=== PATIENT | male | born 1960 | race Caucasian/White ===

== ENCOUNTER → 2024-10-11 | Outpatient (CLI) | payer BC, SELFPAY ==
[2024-10-11 12:54] LABS: Vitamin D,25 Hydroxy 37.5 ng/mL
[2024-10-11 12:57] LABS: AST(SGOT) 16 U/L (15-37); Alanine Aminotransfer ALT/SGPT 23 U/L (16-61); Albumin, Serum 3.8 g/dL (3.2-5.0); Alkaline Phosphatase 47 U/L (45-117); Anion Gap 8 (5-15); BUN 27 mg/dL (7-18); BUN/Creat Ratio 15.3 RATIO (10-20); Calcium,Total 9.4 mg/dL (8.5-10.1); Chloride 102 mmol/L (98-107); Cholesterol 131 mg/dL (200); Creatinine, Serum 1.77 mg/dL (0.70-1.30); EST Glomerular Filtration Rate 42 mL/min (>60); Est Glom Filt Rate - Afr Amer 50 mL/min (>60); Globulin 3.9 g/dL (2.2-4.2); Glucose 136 mg/dL (74-106); High Density Lipoprotein 69 mg/dL; Potassium 4.8 mmol/L (3.5-5.1); Protein, Total 7.7 g/dL (6.4-8.2); Sodium Level 136 mmol/L (136-145); Triglycerides 90 mg/dL; Very Low Density Lipoprotein 18 mg/dL (5-40)
== END | disposition home or self-care (01) ==
LOC: LAB 11:17
PROVIDERS: PCP Family Medicine; Referring Provider Internal Medicine Endocrinology, Diabetes & Metabolism; Visit Provider Internal Medicine Endocrinology, Diabetes & Metabolism
DX: E10.22 Type 1 diabetes mellitus with diabetic chronic kidney disease (principal); E10.65 Type 1 diabetes mellitus with hyperglycemia; N18.31 Chronic kidney disease, stage 3a; E03.9 Hypothyroidism, unspecified; I12.9 Hypertensive chronic kidney disease with stage 1 through stage 4 chronic kidney disease, or unspecified chronic kidney disease; E78.00 Pure hypercholesterolemia, unspecified; E55.9 Vitamin D deficiency, unspecified
CPT/HCPCS: 36415; 80053; 80061; 82306; 84443

== ENCOUNTER → 2025-10-05 | Outpatient (CLI) | payer BC, SELFPAY ==
[2025-10-05 11:10] LABS: Creatinine, Urine (random) 37.50 mg/dL (39.00-259.00); Microalbumin,Random Urine 40.9 mg/L (<20 mg/L)
[2025-10-05 11:33] LABS: AST(SGOT) 21 U/L (<=37); Alanine Aminotransfer ALT/SGPT 17 U/L (<=46); Albumin, Serum 4.4 g/dL (3.4-4.8); Alkaline Phosphatase 43 U/L (40-129); Anion Gap 12 (5-15); BUN 40 mg/dL (4-19); BUN/Creat Ratio 25.0 RATIO (10-20); Calcium,Total 9.5 mg/dL (7.6-11.0); Carbon Dioxide 23.0 mmol/L (21.0-32.0); Chloride 102 mmol/L (98-108); Cholesterol 153 mg/dL (<=200); Globulin 2.7 g/dL (2.2-4.2); Glucose 135 mg/dL (70-99); Low Density Lipoprotein Calc. 56 mg/dL; Potassium 4.8 mmol/L (3.3-5.1); Triglycerides 88 mg/dL; Very Low Density Lipoprotein 18 mg/dL (5-40); cholesterol:hdl ratio screen 1.90
--- OUTSIDE RECORDS SUMMARY | 2025-10-05 12:22 | XMS RPT_ITS | CCD ---
Author Organization [facility] Care Team Providers Care 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 Name Role Phone No, Physician Primary Care Provider UnavailDARIEL Forrest Attending Unavaila ISAAK Camilo Referring Unavailable NO, PHYSICIAN Primary Care Unavailable Angelia, Physician Primary Care Provider Zee Phelan MD, Juan Primary Care Provider [phone] Jann Guadalupe MD Primary Care Provider Jann Guadalupe MD Primary Care Provider Jann Guadalupe Unavailable Lorenzo Walsh Unavailable Unavailable Dr. Jose Guadalupe MD Primary Care Provider Dr. Jose Guadalupe MD Referring Provider Dr. Chao Phelan MD Attending Provider Chao Phelan Attending Unavailable Jose Guadalupe Primary Care Unavailable Jose Guadalupe Referring Unavailable Jose Guadalupe Primary Care Unavailable Jose Guadalupe Referring Unavailable Chao Phelan Attending Unavailable Chao Phelan Attending Unavailable Chao Phelan Referring Unavailable Jose Guadalupe Primary Care Unavailable Podlogar HYDROGEOLOGY PROFESSOR.Aleah HENRY Unavailable Collins MOE, Jann Lackey Primary Care Provi marques JANN GUADALUPE Primary Care Unava ilable DEEPTHI CHAVEZ Attending Unavailable Allergies Allergy Classification Reported Allergen(s) Allergy Type Date of Onset Reaction(s) Facility (20 sources) Cat Dander Propensity to adverse reactions to drug 09-18-20 22 Other: See Comments [facility] (20 sources) Iodinated Contrast Media; Translations: [IODINATED CONTRAST MEDIA] Drug Allergy 09-18-20 22 Itching [facility] (1 source) Contrast media Itching [facility] (1 source) Triiodobenzoic Acids Propensity to adverse reactions 04-11-20 Itching [facility] (1 source) Iodinated Contrast Media Drug allergy (disorder) 04-11-20 [facility] Repository Medications Current Medications Medication Drug Class(es) Dates Sig (Normalized) Sig (Original) [id number] 200 actuat albuterol 0.09 mg/actuat metered dose inhaler (1 source) beta2-Adrenergic Agonist Start: 08-17-2025 take 1-2 puff(s) by inhalation every four hours in the evening for wheezing albuterol 90 mcg/actuation inhaler Indications: Acute bronchitis, unspecified organism Inhale 1-2 puffs every 4 hours if needed for wheezing or shortness of breath. 8.5 g 08/17/2025 3:21 PM EDT 08/17/2025 Active amLODIPine 10 mg oral tablet (20 sources) Dihydropyridine Calcium Channel [place] Start: 06-25-2025 take 1 tablet by mouth in the morning amLODIPine (Norvasc) 10 mg tablet Take 1 tablet (10 mg) by mouth early in the morning.. 06/25/2025 Active Start: 12-22-2022 End: 03-27-2025 take 1 tablet by mouth once daily Amlodipine 10 mg tablet Active 10 mg PO DAILY March 27, 2025 1:47pm Start: 12-03-2022 End: 12-22-2022 take 1 tablet by mouth once daily amLODIPine (NORVASC) 5 mg tablet Indications: Essential hypertension Take 1 tablet by mouth once daily. 30 tablet 2 12/03/2022 12/22/2022 Discontinued Start: 10-03-2022 End: 12-03-2022 take 1 tablet by mouth once daily amLODIPine (NORVASC) 2.5 mg tablet Indications: Essential hypertension Take 1 tablet by mouth once daily. 90 tablet 1 10/03/2022 12/03/2022 Discontinued amLODIPine Quant ity: 0 Refills: 0 Ordered: 30-Jul-2023 Gabriela Guevara Generic Substitution Allowed amlodipine besyl ate (AMLODIPINE ORAL) Take by mouth . 0 Active Comment on above: Take 1 tablet by once daily. azithromycin 250 mg oral tablet (1 source) Macrolide Antimicrobial Start: azithromycin (Zithromax Z-Lenin) 250 mg tablet Indications: Acute bronchitis, unspecified organism Take 2 tablets by mouth at once on day 1, then 1 tablet once a day on days 2-5. Take with a meal. 6 tablet 08/17/2025 3:21 PM EDT 08/17/2025 Active cholecalciferol 0.025 mg oral capsule (1 source) Vitamin D Start: take 1 capsule by mouth once daily Cholecalciferol (Vitamin D3) 25 mcg (1,000 unit) capsule Active 25 ug PO daily April 11, 2025 12:00am clindamycin 300 mg oral capsule (1 source) Lincosamide Antibacterial Start: End: take 1 capsule by mouth three times daily Cleocin HCl 300 mg oral capsule ; 1 cap(s) orally 3 times a day Quantity: 30 Refills: 0 Ordered: 30-Jul-2023 Lorenzo Walsh Start: 30-Jul-2023 End: 08-Aug-2023 Generic Substitution Allowed Comments: Finish all this medication unless otherwise directed by prescriber.Medication should be taken with plenty of water. Comment on above: Finish all this medi cation unless otherwise directed by prescriber.Medication should be taken with plenty of water. dapagliflozin 10 mg oral tablet (8 sources) Sodium-Glucose Cotransporter 2 Inhibitor Start: take 1 tablet by mouth in the morning Farxiga 10 mg tablet Take 1 tablet (10 mg) by mouth early in the morning.. 06/25/2025 Active Start: 07-17-2023 End: 03-27-2025 take 1 tablet by mouth once daily Dapagliflozin Propanediol (Farxiga) 10 mg tablet Active 10 mg PO DAILY March 27, 2025 1:47pm ezetimibe 10 mg oral tablet (6 sources) Dietary Cholesterol Absorption Inhibitor Start: 04-06-2023 End: 03-27-2025 take 1 tablet by mouth once daily Ezetimibe 10 mg tablet Active 10 mg PO DAILY March 27, 2025 1:47pm flash glucose scanning reader (Arimaz AKIRA 2 READER) (19 sources) Start: 10-14-2022 flash glucose scanning reader (FREESTYLE AKIRA 2 READER) Use 4 times daily to monitor sugars. 1 Each 10/14/2022 Active Start: 10-14-2022 flash glucose scanning reader (FREESTYLE AKIRA 2 READER) Use 4 times daily to monitor sugars. 1 Each 0 10/14/2022 Active Comment on above: Use 4 times daily to monitor sugars. 3 ml insulin aspart, human 100 unt/ml pen injector (20 sources) Insulin Analog Start: inject 20 [IU] by subcutaneous injection three times daily insulin aspart (NovoLOG) 100 unit/mL (3 mL) pen INJECT 20 UNITS SUBCUTANEOUSLY (UNDER THE SKIN) THREE TIMES DAILY 05/08/2025 Active Start: 08-03-2023 End: 10-11-2024 Insulin Aspart U-100 (Novolo g Flexpen U-100 Insulin) 100 unit/mL (3 mL) insulin pen Active 20 U SC THREE TIMES A DAY 54 October 11, 2024 11:58am Start: 03-23-2023 End: 08-03-2023 Insulin Aspart U-100 (Novolo g U-100 Insulin Aspart) 100 unit/mL solution Discontinued 1 sliding scale dose SC Use as Directed March 23, 2023 12:00am August 03, 2023 8:10am Start: 09-23-2022 End: 03-22-2023 inject 8 [IU] by subcutaneous injection three times daily before mealtime insulin aspart U-100 (NOVOLOG FLEXPEN U-100 INSULIN) 100 unit/mL (3 mL) Indications: 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 Plus sliding scale 15 mL 1 12/22/2022 Active Comment on above: Inject 5 Units subcutaneously three time s daily before meals. Plus sliding scale Inject 5-10 Units pang bcutaneously three times daily before meals. Patient reports 5-10 units per sliding scale 3 x daily Inject 8 Units subcu taneously three times daily before meals. Plus sliding scale 3 ml insulin glargine 100 unt/ml pen injector (20 sources) Insulin Analog Start: 025 inject 18 [IU] by subcutaneous injection once daily, then inject 100 [IU] by subcutaneous injection once Basaglar KwikPen U-100 Insulin 100 unit/mL (3 mL) pen 18 unit (0.18 mL) subcutaneously daily = each pen good for 28 days once opened 06/25/2025 Active Start: 03-23-2023 End: 10-11-2024 Insulin Glargine (Basaglar K wikpen U-100 Insulin) 100 unit/mL (3 mL) insulin pen Active 18 U SC DAILY October 11, 2024 11:57am Start: 12-22-2022 End: 06-20-2023 inject 16 [IU] by subcutaneous injection once daily in the morning, then inject 15-20 [IU] by subcutaneous injection once daily in the morning insulin glargine (BASAGLAR KWIKPEN U-100 INSULIN) 100 unit/mL (3 mL) Indications: 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 At bedtime 30 mL 1 09/23/2022 12/22/2022 Discontinued Start: 09-18-2022 End: 03-17-2023 insulin glargine (BASAGLAR K WIKPEN U-100 INSULIN) 100 unit/mL (3 mL) Inject 22 Units subcutaneously once daily. At bedtime 30 mL 1 09/18/2022 09/23/2022 Discontinued insulin glargine (LANTUS) 100 unit/mL injection Inject under the skin nightly . 0 Active Comment on above: Inject 22 Units subc utaneously once daily. At bedtime Inject 28 Units subc utaneously once daily. At bedtime Inject 16 Units subc utaneously every morning. Patient reports taking 15-20 units every morning due to experiencing low BS Insulin Lispro (1 source) Insulin Analog HumaLOG Quantity : 0 Refills: 0 Ordered: 30-Jul-2023 Gabriela Guevara Generic Substitution Allowed insulin human, isophane 100 unt/ml injectable suspension (2 sources) insulin NPH (HumuLIN,NovoLIN) 100 unit/mL injection Inject under the skin . 0 Active levothyroxine sodium 0.125 mg oral tablet (20 sources) l-Thyroxine Start: 06-14-2025 levothyroxine (Synthroid, Levoxyl) 125 mcg tablet 06/14/2025 Active Start: 03-23-2023 End: 06-17-2023 take 1 capsule by mouth once daily Levothyroxine 125 mcg capsule Discontinued 125 ug PO DAILY March 23, 2023 12:00am June 17, 2023 1:05pm Start: 09-23-2022 End: 12-14-2024 take 1 tablet by mouth once daily Levothyroxine 125 mcg tablet Active 125 ug PO DAILY December 14, 2024 6:22pm Start: 09-18-2022 End: 03-17-2023 take 1 tablet by mouth once daily before breakfast levothyroxine (SYNTHROID) 112 mcg tablet Take 1 tablet by mouth daily before breakfast. 90 tablet 1 09/18/2022 09/23/2022 Discontinued levothyroxine Qu antity: 0 Refills: 0 Ordered: 30-Jul-2023 Gabriela Guevara Generic Substitution Allowed levothyroxine so dium (LEVOTHYROXINE ORAL) Take by mouth . 0 Active Comment on above: Take 1 tablet by yan th daily before breakfast. Take 112 mcg by mout h daily before breakfast. losartan potassium 100 mg oral tablet (20 sources) Angiotensin 2 Receptor Sydney Start: 06-25-2025 take 1 tablet by mouth in the morning losartan (Cozaar) 100 mg tablet Take 1 tablet (100 mg) by mouth early in the morning.. 06/25/2025 Active Start: 09-18-2022 End: 03-27-2025 take 1 tablet by mouth once daily Losartan 100 mg tablet Active 100 mg PO DAILY March 27, 2025 1:47pm losartan Quantit y: 0 Refills: 0 Ordered: 30-Jul-2023 Gabriela Guevara Generic Substitution Allowed Comment on above: Take 1 tablet by yan th once daily. Take 100 mg by mouth once daily. rosuvastatin calcium 10 mg oral tablet (4 sources) HMG-CoA Reductase Inhibitor Start: End: take 1 tablet by mouth once daily at bedtime rosuvastatin (CRESTOR) 10 mg tablet Take 1 tablet by mouth daily at bedtime. 30 tablet 2 03/03/2023 06/01/2023 Active Comment on above: Take 1 tablet by yan th daily at bedtime. Completed/Discontinued Medications Medication Drug Class(es) Dates Sig (Normalized) Sig (Original) atorvastatin 20 mg oral tablet (18 sources) HMG-CoA Reductase Inhibitor Start: 09-23-2022 End: 04-06-2023 take 1 tablet by mouth once daily Atorvastatin (Lipitor) 20 mg tablet Discontinued 20 mg PO DAILY March 23, 2023 12:00am April 06, 2023 11:46am Comment on above: Take 1 tablet by yan th daily at bedtime. For cholesterol. Blood-Glucose Sensor (FREESTYLE AKIRA 3 SENSOR) marleni (13 sources) Start: 12-25-2022 End: 06-23-2023 Blood-Glucose Sensor (FREESTYLE AKIRA 3 SENSOR) marleni 1 Device every 2 weeks. 6 Each 1 12/25/2022 06/23/2023 Start: 12-25-2022 End: 06-23-2023 Blood-Glucose Sensor (FREEST YLE AKIRA 3 SENSOR) marleni 1 Device every 2 weeks. 6 Each 1 12/25/2022 06/23/2023 Active Comment on above: 1 Device every 2 wee padmini. Blood-Glucose Sensor (Freestyle Akira 3 Sensor) device (5 sources) Start: 04-11-2024 End: 10-11-2024 Blood-Glucose Sensor (Freestyle Akira 3 Sensor) device Discontinued 0 .Route April 11, 2024 11:12am October 11, 2024 11:30am As directed Start: 12-29-2023 End: 04-11-2024 Blood-Glucose Sensor (Freest yle Akira 3 Sensor) device Discontinued 0 .Route December 29, 2023 2:52pm April 11, 2024 11:13am As directed Start: 07-17-2023 End: 12-29-2023 Blood-Glucose Sensor (Freest yle Akira 3 Sensor) device Discontinued 0 .Route July 17, 2023 11:29am December 29, 2023 2:52pm As directed Start: 07-17-2023 End: 07-17-2023 Blood-Glucose Sensor (Freest yle Akira 3 Sensor) device Discontinued 0 .Route July 17, 2023 11:27am July 17, 2023 11:29am As directed Start: 05-11-2023 End: 07-17-2023 Blood-Glucose Sensor (Freest yle Akira 3 Sensor) device Discontinued 0 .Route May 11, 2023 12:00am July 17, 2023 11:27am As directed flash glucose sensor (FREEST YLE AKIRA 2 SENSOR) kit (18 sources) Start: 10-14-2022 End: 04-12-2023 flash glucose sensor (FREEST YLE AKIRA 2 SENSOR) kit 1 Each every 2 weeks. 6 Each 1 10/14/2022 04/12/2023 Start: 10-14-2022 End: 04-12-2023 flash glucose sensor (FREEST YLE AKIRA 2 SENSOR) kit 1 Each every 2 weeks. 6 Each 1 10/14/2022 04/12/2023 Active Comment on above: 1 Each every 2 weeks . hydroCHLOROthiazide 25 mg oral tablet (5 sources) Thiazide Diuretic Star t: 02-0 7- End: 01-28 23 take 1 tablet by mouth once daily hydroCHLOROthiazide (HYDRODIURIL, ESIDRIX) 25 mg tablet Take 1 tablet by mouth once daily. 30 tablet 1 01/06/2023 02/09/2023 Discontinued (Changing Therapy/Dosage Form) Comment on above: Take 1 tablet by yan th once daily. insulin glargine,hum.rec.anlog (BASAGLAR KWIKPEN U-100 INSULIN SUBCUTANEOUS) (1 source) End: 08-31 inject 22 [IU] by subcutaneous injection once daily at bedtime insulin glargine,hum.rec.anlog (BASAGLAR KWIKPEN U-100 INSULIN SUBCUTANEOUS) Inject 22 Units subcutaneously once daily. At bedtime 0 09/18/2022 Discontinued Comment on above: Inject 22 Units subc utaneously once daily. At bedtime metoprolol tartrate 25 mg oral tablet (10 sources) beta-Adrenergic Sydney Star t: 03-01 End: 06-30 take 1 tablet by mouth once daily Metoprolol Tartrate 25 mg tablet Discontinued 25 mg PO DAILY March 23, 2023 12:00am July 17, 2023 11:05am Start: 02-09-2023 take 1 tablet by yan th once daily metoprolol succinate ER (TOPROL XL) 25 mg 24 hr tablet Indications: Essential hypertension Take 1 tablet by mouth once daily. 30 tablet 1 02/09/2023 Active Comment on above: Take 1 tablet by yan th once daily. Problems Active Problems Problem Classification Problem Date Documented Date Episodic/Chronic Acute and unspecified renal failure (3 sources) Acute injury of kidney; Translations: [Acute kidney failure, unspecified] Episodic Acute bronchitis (3 sources) Acute bronchitis; Translations: [Acute bronchitis, unspecified] Onset: 08-17-2025 08-17-2025 Episodic Chronic kidney disease (1 source) Chronic kidney disease; Translations: [Chronic kidney disease, unspecified] 07-17-2023 Chronic Chronic kidney disease (1 source) Chronic kidney disease; Translations: [Chronic kidney disease, stage 3a] Onset: 10-11-2024 Diabetes mellitus with complications (20 sources) Polyneuropathy due to type 1 diabetes mellitus; Translations: [Type 1 diabetes mellitus with diabetic polyneuropathy] Onset: 09-18-2022 Chronic Diabetes mellitus without complication (8 sources) Type 1 diabetes mellitus; Translations: [Insulin treated type 2 diabetes mellitus] Onset: 12-12-2019 12-12-2019 Chronic Disorders of lipid metabolism (20 sources) Mixed hyperlipidemia; Translations: [Mixed hyperlipidemia] Onset: 12-22-2022 Chronic Essential hypertension (20 sources) Essential hypertension; Translations: [Essential (primary) hypertension] Onset: 12-12-2019 12-12-2019 Chronic Fluid and electrolyte disorders (4 sources) Hyponatremia; Translations: [Hypo-osmolality and hyponatremia] Episodic Other eye disorders (1 source) Vitreous hemorrhage, right eye; Translations: [Vitreous hemorrhage, right eye (HCC)] Chronic Other screening for suspected conditions (not mental disorders or infectious disease) (1 source) Patient encounter status; Translations: [Encounter for screening for malignant neoplasm of prostate] Episodic Residual codes; unclassified (1 source) Tobacco user; Translations: [Tobacco use] Episodic Substance-related disorders (3 sources) Tobacco dependence syndrome; Translations: [Cigarette nicotine dependence with nicotine-induced disorder] Onset: 12-12-2019 12-12-2019 Chronic Thyroid disorders (20 sources) Acquired hypothyroidism; Translations: [Hypothyroidism] Onset: 12-12-2019 12-12-2019 Chronic Unclassified (1 source) Preprocedural examination done; Translations: [Pre-op evaluation] Unclassified (2 sources) BOIL 07-30-2023 Comment on above: BOIL Past or Other Problems Problem Classification Problem Date Documented Da te Episodic/Chronic Other fractures (20 sources) Fracture of multiple ribs ; Translations: [Multiple fractures of ribs, unspecified side, initial encounter for closed fracture] Onset: 09-18-2022 09-18-2022 Episodic Screening and history of mental health and substance abuse codes (20 sources) Tobacco use and exposure - finding; Translations: [Personal history of nicotine dependence] Onset: 09-18-2022 Episodic Results Test Name Value Interpretation Reference Range Facility Endocrinology Visit Reporton 04-11-2025 Endocrinology Visit Report [facility] [address] [place] [address] [address] [place] [address] OFFICE VISIT Date of Service: 04/11/25 MR#: [id number] Acct: [id number] Name: ANUM NOVOA Rep #: [id number] : 1960 Provider: Jazmine Sosa Age/Sex: 64/M [place] [facility] [place]: Signed Intake Vital Signs 10/11/24 10:21 04/11/25 10:55 Height 6 ft 3 in 6 ft 3 in Weight: 156 lb 2 oz 159 lb 2 oz BMI 19.5 19.8 BP 166/81 H 140/60 H Blood Pressure Location Lt brachial Lt brachial Position Sitting Sitting Pulse 80 76 Pulse Source Monitor Monitor Pulse Oximetry (%) 98 96 Oxygen Delivery Method room air room air Intake Visit Reasons: 6 M FU Chief Complaint: Diabetes Is patient in pain?: No Allergies Iodinated Contrast Media Adverse Reaction (Intermediate, Verified 04/11/25 10:59) Itching Medications ???Medication ???Instructions ???Recorded ???Confirmed ???Type Basaglar KwikPen U-100 Insulin 100 18 unit (0.18 mL) subcut DAILY # 15 10/11/24 04/11/25 Rx unit/mL (3 mL) subcutaneous mL (insulin glargine) insulin aspart U-100 100 unit/mL 20 unit (0.2 mL) subcut TID #54 mL 10/11/24 04/11/25 Rx (3 mL) subcutaneous pen (Novolog FlexPen U-100 Insulin aspart) levothyroxine 125 mcg tablet 125 mcg PO DAILY #90 tabs 12/14/24 04/11/25 Rx Farxiga 10 mg tablet 10 mg PO DAILY #90 tabs 03/27/25 0 04/11/25 Rx (dapagliflozin propanediol) amlodipine 10 mg tablet 10 mg PO DAILY #90 tabs 03/27/25 0 04/11/25 Rx ezetimibe 10 mg tablet 10 mg PO DAILY #90 tabs 03/27/25 0 04/11/25 Rx losartan 100 mg tablet 100 mg PO DAILY #90 tabs 03/27/25 04/11/25 Rx cholecalciferol (vitamin D3) 25 25 mcg PO QDAY 04/11/25 04/11/25 H istory mcg (1,000 unit) capsule PFSH Medical History Type 1 diabetes mellitus with hyperglycemia Hypertension High cholesterol Thyroid disease Family History Mother Diabetes Hypertension Father Cancer HPI HPI Chief Complaint: Diabetes Details: ANUM NOVOA, is a 64 M who presents to the office today for follow up. A1C is 7.6% He is taking basal bolus. 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 He is taking Farxiga for renal protection. He is on ARB. He is on ezetimibe for lipids. He is having some difficulty communicating with his regarding health and they are eating out frequently. His sugars are worse when he eats processed food. ROS Const Constitutional: No fatigue, weight change or change in appetite Eyes Eyes: No change in vision ENT ENT: No dizziness/vertigo or difficulty swallowing Cardio Cardiology: No chest pain at rest, chest pain with exertion, shortness of breath or palpitations Musc Musculoskeletal: No abnormal gait, joint pain, numbness or tingling Neuro Neurology: No abnormal gait, memory loss, numbness or tingling Psych Psychiatric: No change in appetite, No memory loss and No Thoughts of harming yourself/Others Resp Respiratory: No cough, chest congestion or shortness of breath Gastro GI: No abdominal pain, constipation, diarrhea or difficulty swallowing Genitourinary Male: No burning urination Skin Skin: No itchy eyes or wounds Endo Endocrine: No fatigue or weight change Aller/Imm Allergy/Immunologic: No itchy eyes Exam Const General: cooperative, healthy appearing, comfortable, no acute distress, well developed and not cushingoid Nutritional Appearance: well nourished Orientation: alert, awake and oriented x3 [facility] Head: normal to inspection Ears: hearing grossly normal bilaterally Nose: external nose normal Mouth: oral mucosae normal Eyes General: appearance normal, both eyes and all related structures Alignment and Position: alignment normal Periorbital: periorbital findings normal Eyelids: eyelids normal Conjunctivae: conjunctivae normal Neck Neck: normal visual inspection Neck mass: No Chest Chest palpation inspection: normal inspection of the chest Resp Effort Inspection: normal respiratory effort, able to speak in complete sentences, symmetric chest movement, no audible wheezes and no cough Cardio Rate: regular rate Rhythm: regular rhythm Skin General: no rashes or lesions noted Neuro General: patient alert, patient awake and patient oriented x3 Cranial Nerves: CN's II-XI intact bilaterally Cognition: normal cognition Speech: speech normal Gait: normal gait Motor: muscle tone normal throughout Extrem General: no edema Psych Appearance: grossly normal Mental Status: mental status grossly normal Mood: congruent mood Affect: normal affect Speech and Movement: speech and movement normal Attitude: cooperative Thought Process: normal (more content not included)... Normal [facility] Comprehensive Metabolic Prof ilon 10-11-2024 Albumin [Mass/Vol] 3.8 g/dL Normal 3.2-5.0 [facility] Comment on above: Performed By: #### L 500.4100, L506.1000, L500.4050, L501.9520 #### [facility] [address] [place], [address] Albumin/Globulin [Mass ratio] 1.0 {ratio} Normal 0.9-2.4 [facility] Comment on above: Performed By: #### L 500.4100, L506.1000, L500.4050, L501.9520 #### [facility] [address] [place], [address] ALK P 47 U/L Normal 45-117 [facility] Comment on above: Performed By: #### L 500.4100, L506.1000, L500.4050, [id number] #### [facility] [address] [place], [address] ALT [Catalytic activity/Vol] 23 U/L Normal 16-61 [facility] Comment on above: Performed By: #### L 500.4100, L506.1000, L500.4050, [id number] #### [facility] [address] [place], [address] AST [Catalytic activity/Vol] 16 U/L Normal 15-37 [facility] Comment on above: Performed By: #### L 500.4100, L506.1000, L500.4050, [id number] #### [facility] [address] [place], [address] Bilirubin [Mass/Vol] 0.70 mg/dL Normal 0.20-1.00 [facility] Comment on above: Result Comment: For patients on eltrombopag therapy, use of Dimension [place] TBIL is not recommended. Performed By: #### L 500.4100, L506.1000, L500.4050, L501.9520 #### [facility] [address] [place], [address] BUN/CRE 15.3 RATIO Normal 10-20 [facility] Comment on above: Performed By: #### L 500.4100, L506.1000, L500.4050, L501.9520 #### [facility] [address] [place], [address] CA,Total 9.4 mg/dL Normal 8.5-10.1 [facility] Comment on above: Performed By: #### L 500.4100, L506.1000, L500.4050, L501.9520 #### [facility] [address] [place], [address] Chloride [Moles/Vol] 102 mmol/L Normal 98-107 [facility] Comment on above: Performed By: #### L 500.4100, L506.1000, L500.4050, L501.9520 #### [facility] [address] [place], [address] CO2 [Moles/Vol] 25.0 mmol/L Normal 21.0-32.0 [facility] Comment on above: Performed By: #### L 500.4100, L506.1000, L500.4050, L501.9520 #### [facility] [address] [place], [address] Creatinine [Mass/Vol] 1.77 mg/dL High 0.70-1.30 [facility] Comment on above: Result Comment: The validity of the calculated GFR GFRAA in patients over 70 years has not been determined. Clinical correlation is essential. Performed By: #### L 500.4100, L506.1000, L500.4050, L501.9520 #### [facility] [address] [place], [address] EST GFR - AA 50 mL/min Low >60 [facility] Comment on above: Result Comment: Afri can English GFR Calc Performed By: #### L 500.4100, L506.1000, L500.4050, L501.9520 #### [facility] [address] [place], [address] GAP 8 Normal 5-15 [facility] Comment on above: Performed By: #### L 500.4100, L506.1000, L500.4050, L501.9520 #### [facility] [address] [place], [address] GFR/1.73 sq M.predicted among non-blacks MDRD (S/P/Bld) [Vol rate/Area] 42 mL/min/{1.73_m2} Low >60 [facility] Comment on above: Result Comment: Non- GFR Calc Performed By: #### L 500.4100, L506.1000, L500.4050, L501.9520 #### [facility] [address] [place], [address] Globulin (S) [Mass/Vol] 3.9 g/dL Normal 2.2-4.2 [facility] Comment on above: Performed By: #### L 500.4100, L506.1000, L500.4050, L501.9520 #### [facility] [address] [place], [address] Glucose [Mass/Vol] 136 mg/dL High 74-106 [facility] Comment on above: Result Comment: Fast ing Glucose result greater than or equal to 126 mg/dL suggests DIABETES MELLITUS per A.D.A. criteria. Performed By: #### L 500.4100, L506.1000, L500.4050, L501.9520 #### [facility] [address] [place], [address] Potassium [Moles/Vol] 4.8 mmol/L Normal 3.5-5.1 [facility] Comment on above: Performed By: #### L 500.4100, L506.1000, L500.4050, L501.9520 #### [facility] [address] [place], [address] Sodium [Moles/Vol] 136 mmol/L Normal 136-145 [facility] Comment on above: Performed By: #### L 500.4100, L506.1000, L500.4050, L501.9520 #### [facility] [address] [place], [address] T PROT 7.7 g/dL Normal 6.4-8.2 [facility] Comment on above: Performed By: #### L 500.4100, L506.1000, L500.4050, L501.9520 #### [facility] [address] [place], [address] Urea nitrogen [Mass/Vol] 27 mg/dL High 7-18 [facility] Comment on above: Performed By: #### L 500.4100, L506.1000, L500.4050, L501.9520 #### [facility] [address] [place], [address] Endocrinology Visit Reporton 10-11-2024 Endocrinology Visit Report [facility] [address] [place] [address] OFFICE VISIT Date of Service: 10/11/24 MR#: [id number] Acct: [id number] Name: ANUM NOVOA YOLETTE Rep #: [id number] : 1960 Provider: Jazmine Sosa Age/Sex: 64/M Location: [facility] [place] Status: Signed Intake Vital Signs 04/11/24 10:59 10/11/24 10:21 Height 6 ft 3 in 6 ft 3 in Weight: 160 lb 156 lb 2 oz BMI 20.0 19.5 BP 137/74 H 166/81 H Blood Pressure Location Lt brachial Lt brachial Position Sitting Sitting Respiration 16 Pulse 83 80 Pulse Source Monitor Monitor Temp 96.9 F L Temp Source Temporal Pulse Oximetry (%) 96 98 Oxygen Delivery Method room air room air Intake Visit Reasons: 6 M FU Chief Complaint: Diabetes Is patient in pain?: No Allergies Iodinated Contrast Media Adverse Reaction (Intermediate, Verified 04/11/24 10:56) Itching Medications ???Medication ???Instructions ???Recorded ???Confirmed ???Type Farxiga 10 mg tablet 10 mg PO DAILY #90 tabs 09/26/24 10/11/24 Rx (dapagliflozin propanediol) ezetimibe 10 mg tablet 10 mg PO DAILY #90 tabs 09/26/24 10/11/24 Rx losartan 100 mg tablet 100 mg PO DAILY #90 tabs 09/26/24 10/11/24 Rx amlodipine 10 mg tablet 10 mg PO DAILY #90 tabs 09/27/24 10/11/24 Rx Basaglar KwikPen U-100 Insulin 100 18 unit (0.18 mL) subcut DAILY #15 10/11/24 10/11/24 Rx unit/mL (3 mL) subcutaneous mL (insulin glargine) insulin aspart U-100 100 unit/mL 20 unit (0.2 mL) subcut TID #54 mL 10/11/24 10/11/24 Rx (3 mL) subcutaneous pen (Novolog FlexPen U-100 Insulin aspart) levothyroxine 125 mcg tablet 125 mcg PO DAILY #90 tabs 10/11/24 10/11/24 Rx PFSH Medical History High cholesterol Hypertension Thyroid disease Type 1 diabetes mellitus with hyperglycemia Family History Mother Diabetes Hypertension Father Cancer HPI HPI Chief Complaint: Diabetes Details: ANUM NOVOA, is a 64 M who presents to the office today for follow up. A1C is 6.8% He is taking basal bolus. 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 He is taking Farxiga for renal protection. He is on ARB. He is on ezetimibe for lipids. ROS Const Constitutional: No fatigue, weight change or change in appetite Eyes Eyes: No change in vision ENT ENT: No dizziness/vertigo or difficulty swallowing Cardio Cardiology: No chest pain at rest, chest pain with exertion, shortness of breath or palpitations Musc Musculoskeletal: No abnormal gait, joint pain, numbness or tingling Neuro Neurology: No abnormal gait, memory loss, numbness or tingling Psych Psychiatric: No change in appetite, No memory loss and No Thoughts of harming yourself/Others Resp Respiratory: No cough, chest congestion or shortness of breath Gastro GI: No abdominal pain, constipation, diarrhea or difficulty swallowing Genitourinary Male: No burning urination Skin Skin: No itchy eyes or wounds Endo Endocrine: No fatigue or weight change Aller/Imm Allergy/Immunologic: No itchy eyes Exam Const General: cooperative, healthy appearing, comfortable, no acute distress, well developed and not cushingoid Nutritional Appearance: well nourished Orientation: alert, awake and oriented x3 HENMT Head: normal to inspection Ears: hearing grossly normal bilaterally Nose: external nose normal Mouth: oral mucosae normal Eyes General: appearance normal, both eyes and all related structures Alignment and Position: alignment normal Periorbital: periorbital findings normal Eyelids: eyelids normal Conjunctivae: conjunctivae normal Neck Neck: normal visual inspection Neck mass: No Thyroid: thyroid normal Lymphatic: no lymphadenopathy noted Chest Chest palpation inspection: normal inspection of the chest Resp Effort Inspection: normal respiratory effort, able to speak in complete sentences, symmetric chest movement, no audible wheezes and no cough Auscultation: Bilateral: Clear to Auscultation Cardio Rate: regular rate Rhythm: regular rhythm Pulses: posterior tibial pulses present Skin General: no rashes or lesions noted Neuro General: patient alert, patient awake and patient oriented x3 Cranial Nerves: CN's II-XI intact bilaterally Cognition: normal cognition Speech: speech normal Gait: normal gait Motor: muscle tone normal throughout Extrem General: no edema Psych Appearance: grossly normal Mental Status: mental status grossly normal Mood: congruent mood Affect: normal affect Speech and Movement: speech and movement normal Attitude: cooperative Thought Process: normal Thought Content: normal Judgment: judgment good Results POC A1C (more content not included)... Normal [facility] Lipid Profileon 10-11-2024 Cholesterol [Mass/Vol] 131 mg/dL Normal 200 [facility] Comment on above: Result Comment: <200 mg/dL Desirable 200-240 mg/dL Borderline >240 mg/dL High Risk Performed By: #### L 500.4100, L506.1000, L500.4050, L501.9520 #### [facility] [address] [place], [address] Cholesterol in HDL [Mass/Vol] 69 mg/dL Normal [facility] Comment on above: Result Comment: The drugs N-Acetylcysteine and Metamizole may falsely depress this assay. Reference Range HDL <40 mg/dL Low HDL Cholesterol HDL >or= 60 mg/dL High HDL Cholesterol Performed By: #### L 500.4100, L506.1000, L500.4050, L501.9520 #### [facility] [address] [place], [address] Cholesterol in LDL [Mass/Vol] 44 mg/dL Normal 0-130 [facility] Comment on above: Performed By: #### L 500.4100, L506.1000, L500.4050, L501.9520 #### [facility] [address] [place], [address] Cholesterol in VLDL [Mass/Vol] 18 mg/dL Normal 5-40 [facility] Comment on above: Performed By: #### L 500.4100, L506.1000, L500.4050, L501.9520 #### [facility] [address] [place], [address] Triglyceride [Mass/Vol] 90 mg/dL Normal [facility] Comment on above: Result Comment: The drugs N-Acetylcysteine and Metamizole may falsely depress this assay. Serum Triglycerides Reference Interval Normal <150 mg/dL Borderline high 150 - 199 mg/dL High 200 - 499 mg/dL Very High > or = 500 mg/dL Performed By: #### L 500.4100, L506.1000, L500.4050, L501.9520 #### [facility] [address] [place], [address] Thyroid Stim Hormone (TSH)on 10-11-2024 TSH 2.250 uIU/mL Normal 0.358-3.740 [facility] Comment on above: Performed By: #### L 500.4100, L506.1000, L500.4050, L501.9520 #### [facility] [address] [place], [address] Vitamin D,25 Hydroxyon 10-11 Vitamin D 25-OH 37.5 ng/mL Normal [facility] Comment on above: Result Comment: Jocelyn min D 25(OH) Status Range Deficiency <20 ng/mL (50nmol/L) Insufficiency 20 - 30 ng/mL (50 - 75 nmol/L) Sufficiency 30 - 100 ng/mL (75 - 250 nmol/L) Toxicity >100 ng/mL (>250 nmol/L) Performed By: #### L 500.4100, L506.1000, L500.4050, L501.9520 #### [facility] [address] [place], [place], [address] US KIDNEY/BLADDERon 02-13-20 23 [facility] ALBUMIN/CREAT RATIO RND URon 09-19-2022 Albumin DL <= 20 mg/L (U) [Mass/Vol] 127.9 mg/L [facility] Albumin/Creatinine (U) [Mass ratio] 235 mg/g High <30 mg/g [facility] c Creatinine (U) [Mass/Vol] 54.4 mg/dL 20.0 - 300.0 mg/dL [facility] Comprehensive metabolic 2000 panelon 09-19-2022 Albumin [Mass/Vol] 4.5 g/dL 3.9 - 4.9 g/dL [facility] ALP [Catalytic activity/Vol] 76 U/L 38 - 113 U/L [facility] ALT [Catalytic activity/Vol] 17 U/L 10 - 54 U/L [facility] Anion gap [Moles/Vol] 9 mmol/L 9 - 18 mmol/L [facility] AST [Catalytic activity/Vol] 18 U/L 14 - 40 U/L [facility] Bilirubin [Mass/Vol] 0.3 mg/dL 0.2 - 1.3 mg/dL [facility] Calcium [Mass/Vol] 9.9 mg/dL 8.5 - 10. 2 mg/dL [facility] Chloride [Moles/Vol] 100 mmol/L 97 - 105 mmol/L [facility] CO2 [Moles/Vol] 26 mmol/L 22 - 30 mmol/L [facility] Creatinine [Mass/Vol] 1.41 mg/dL High 0.73 - 1.22 mg/dL [facility] Estimated Glomerular Filtration Rate 57 mL/min/1.73m Low >=60 mL/min/1.73m [facility] Glucose [Mass/Vol] 267 mg/dL High 74 - 99 mg/dL [facility] Potassium [Moles/Vol] 5.5 mmol/L High 3.7 - 5.1 mmol/L [facility] Protein [Mass/Vol] 6.8 g/dL 6.3 - 8.0 g/dL [facility] Sodium [Moles/Vol] 135 mmol/L Low 136 - 144 mmol/L [facility] Urea nitrogen [Mass/Vol] 26 mg/dL High 9 - 24 mg/dL [facility] HbA1c (Bld)on 09-19-2022 Average glucose Estimated from glycated hemoglobin (Bld) [Mass/Vol] 278 mg/dL [facility] HbA1c (Bld) [Mass fraction] 11.3 % High 4.3 - 5.6 % [facility] LIPID PANEL, NONFASTINGon Cholesterol [Mass/Vol] 217 mg/dL High <200 mg/dL [facility] HDL Cholesterol, Nonfasting 66 mg/dL >39 mg/dL [facility] LDL Cholesterol, Nonfasting 119 mg/dL High <100 mg/dL [facility] LDL/HDL Ratio, Nonfasting 1.80 mg/dL <2.54 mg/dL [facility] Non HDL Cholesterol, Nonfasting 151 mg/dL High <130 mg/dL [facility] Total Chol/HDL Ratio, Nonfasting 3.29 mg/dL <5.10 mg/dL [facility] ic Triglycerides, Nonfasting 160 mg/dL High <150 mg/dL [facility] VLDL Cholesterol, Nonfasting 32 mg/dL High <30 mg/dL [facility] PSA/PROSTSPECAG SCRNon 09-19 Prostate specific Ag [Mass/Vol] 1.22 ng/mL <2.60 ng/mL [facility] TSH BLDon 09-19-2022 TSH Qn 4.810 m[IU]/L High 0.270 - 4.200 mIU/L [facility] CBC panel Auto (Bld)on 09-18 Erythrocyte distribution width (RBC) [Ratio] 12.2 % 11.5 - 15.0 % [facility] Hematocrit (Bld) [Volume fraction] 40.0 % 39.0 - 51.0 % [facility] Hemoglobin (Bld) [Mass/Vol] 12.7 g/dL Low 13.0 - 17.0 g/dL [facility] MCH (RBC) [Entitic mass] 29.7 pg 26.0 - 34.0 pg [facility] MCHC (RBC) [Mass/Vol] 31.8 g/dL 30.5 - 36.0 g/dL [facility] MCV (RBC) [Entitic vol] 93.7 fL 80.0 - 100.0 fL [facility] Nucleated RBC (Bld) [#/Vol] <0.01 k/uL [facility] Platelet mean volume (Bld) [Entitic vol] 11.4 fL 9.0 - 12.7 fL [facility] Platelets (Bld) [#/Vol] 299 10*3/uL 150 - 400 k/uL [facility] RBC (Bld) [#/Vol] 4.27 10*6/uL 4.20 - 6.0 0 m/uL [facility] WBC (Bld) [#/Vol] 7.57 10*3/uL 3.70 - 11. 00 k/uL [facility] CT Thorax w/o Contraston CT Thorax w/o Contrast EXAMINATION: CT OF THE CHEST WITHOUT CONTRAST 12/11/2021 10:07 am TECHNIQUE: CT of the chest was performed without the administration of intravenous contrast. Multiplanar reformatted images are provided for review. Dose modulation, iterative reconstruction, and/or weight based adjustment of the mA/kV was utilized to reduce the radiation dose to as low as reasonably achievable. COMPARISON: September 27, 2021. HISTORY: ORDERING SYSTEM PROVIDED HISTORY: Rib pain, Excessive incisional edema; Swelling, Rib Pain, S/P Rib Debridement;Other (please specify) TECHNOLOGIST PROVIDED HISTORY: Tech Provided Reason for Exam: Rib pain, Excessive incisional edema; Swelling, Rib Pain, S/P Rib Debridement Injury/Trauma or Illness: Injury/Trauma Type of Encounter: Follow up Acuity: pain since injury 05/2021 FINDINGS: Mediastinum: Heart size is normal. No pericardial effusion. Coronary artery atherosclerosis. Within the limitations of a noncontrast exam, there is no evidence of hilar adenopathy. There are coarsely calcified aortopulmonary lymph nodes. No mediastinal adenopathy. Visible portion of the thyroid is grossly unremarkable. Lungs/pleura: Central tracheobronchial airways are unremarkable. No pneumothorax. Left posterior pleural thickening with a small pleural effusion, probably loculated. Mild centrilobular emphysema. Upper Abdomen: Small hiatal hernia. No acute abnormality in the upper abdomen. Calcified granulomas are noted in the spleen. Soft Tissues/Bones: Subacute posterior nondisplaced fractures of the left 4th, 5th, and 6th ribs. Mildly displaced posterior fractures of the left 7th rib. Subacute lateral fracture of the left 3rd, 4th, 5th, 6th, 7th, 8th, 9th, 10th, and posterior 12th ribs. Status post ORIF of 8th, 9th, 10th, and 11th ribs. No evidence of soft tissue gas or appreciable formed fluid collection/abscess. IMPRESSION: 1. Multiple subacute left-sided fractures as listed above. Although there is some callus formation, the majority of the fractures are still visible and do not appear completely healed. 2. Status post ORIF of 8th through 11th ribs. 3. Small left loculated pleural effusion with associated compressive atelectasis. Ordering Provider: Luis Wise Final Dictated by: MD Desir Bang H Dictated DT/TM: 12/11/2021 8:58 pm Signed by: MD Desir Bang H Signed (Electronic Signature): 12/11/2021 8:58 pm [facility] Comment on above: Order Comment: Sidra hinton Auth: [id number]: 12/03/2021-01/01/2022 Phone Msgon 12-03-2021 Phone Msg Patient called in this a.m. c/o continual swelling around surgical site with rib pain. Denies f/c/n/v, no drainage/bleeding from incision. Dr Wise requested CT Chest w/o contrast. PA approval scanned in. Will schedule CT and contact patient with appt date/time. Electronically Signed on 12/03/21 09:[address] Chest without contast scheduled for 12/11/2021 @1015 Arrive [facility] @0945 No prep Patient aware Electronically Signed on 12/03/21 09:54 [facility] Phone Msgon 11-06-2021 Phone Msg - From: Rika Bergman To: DO Wise Tyrone; Cc: SAUL Su, Dot Pulliam; Sent: 11/06/2021 10:13:49 EST Subject: General Message General Message: D/T schedule changes and xray being backed up. pt unable to keep today's appt. He has questions wonders how long he will have the surgery pain, pt said L side is swollen at bottom of ribcage. Breathing is good, feels incisions are healing well, but feels if he sits for long periods of time that the incision sweat. has sharp pains off/on. Patient should reschedule his appointment if he has concerns regarding swelling or the incisions. Sweating is okay as long as the incisions are not draining. Patient should be checking his temperature daily to ensure no fevers. Pain may persist for up to a year given the proximity to nerves. If he has worsening or intolerable pain, he should present to the ED for evaluation. spoke to Dr. Wise could take months before he feels better and not to worry about the sweats Electronically Signed on 11/06/21 15:07 Rika Bergman [facility] Provider Letteron 10-22-2021 Provider Letter October 22, 2021 Juan Phelan, [address] [place] [address] Date of Visit: 10/21/2021 Re: DOUG NOVOA : 1960 Dear Juan Phelan, Your pt was recently seen at [facility] Cardiothoracic surgery. Please see my attached clinic note for your review. Fell free to contact our office with any questions or concerns. Sincerely, [facility] cardiothoracic Surgery The following document(s) were included in the letter: October 21, 2021 17:12:47 EST - (10/21/2021) [facility] Cardiothoracic Office Visit Missing Attachment (10/21/2021) Cardiothoracic Office Clinic Note Can be viewed in source system [facility] Cardiothoracic Office Clinic Noteon 10-21-2021 Cardiothoracic Office Clinic Note Chief Complaint S/P Lt. VATS/Decort/RIb Debridement 10/08; +Sore History of Present Illness I had the pleasure of seeing Anum Novoa in the office today in postoperative follow-up. 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 He had chest wall instability of his left lower ribs on that side and evidence of nonunion on CT scan. For that reason, I performed open debridement of the pseudoarthroses of ribs 567 and eight. The fractures were then reduced and each was fixed in position utilizing titanium plates and stainless steel screws. The patient had an uneventful hospital course and was discharged home on postoperative day #3. Since going home, the patient reports that he has not had any instability or felt any clunking or motion of the ribs on that left side. He does espouse that he still has pain but it seems more surgical in nature than the pain that he was having before. He is resuming some of his normal activities. Two view chest x-ray was performed and then reviewed in the office today: There appears to be a small to moderate left pleural effusion. The plates and screws seem to be in good position and stable Review of Systems See above Physical Exam Vitals & Measurements HR: 89 (Peripheral) RR: 18 BP: 202/100 SpO2: 99% WT: 64.4 kg (Measured) Incision clean dry and intact. No evidence of hematoma or seroma. Assessment/Plan 1. 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 Regarding the patient's pain, I sense that some of this may be neuropathic and we will send him in a prescription for gabapentin 200 mg 3 times daily. Lastly, I will plan to follow-up with the patient in 2 weeks in the office to ensure that he is progressing appropriately. I will obtain a chest x-ray at his follow-up appointment. Thank you for allowing me to participate in Anum's care and please not hesitate contact me with questions or concerns. Allergies contrast media (iodine-based) (Itch) Medications Basaglar KwikPen 100 units/mL subcutaneous solution, Subcutaneous, Daily, 18-25units daily docusate, 100 mg, 1 tab, Oral, BID, May purchase [id number] and use as needed for constipation. gabapentin 100 mg oral capsule, 200 mg, 2 cap, Oral, TID, 2 refills levothyroxine 112 mcg (0.112 mg) oral capsule, 112 mcg, 1 cap, Oral, Daily losartan 100 mg oral tablet, 100 mg, 1 tab, Oral, Daily Multiple Vitamins oral tablet, Oral, Daily, Purchase uree-pgs-atqrywc men Centrum Silver 50+ or similar. nicotine 21 mg/24 hr transdermal film, extended release, 1 patches, Transdermal, Daily, Purchase [id number]-[id number]-kmaglzy. NovoLOG FlexPen 100 units/mL injectable solution, Subcutaneous, TID(AC), 5 -10 units before meals oxyCODONE 5 mg oral tablet, 5 mg, 1 tab, Oral, every 6 hr, PRN polyethylene glycol 3350 oral powder for reconstitution, 17 g, Oral, Daily, Purchase mrky-lcy-fxtkveo and use as needed for constipation. Tylenol Extra Strength 500 mg oral tablet, 1000 mg, 2 tab, Oral, q8h, Purchase ypti-yfj-lgaslkv and use as needed for pain. Do not exceed 3000 mg/day. Past Social History Alcohol Current user, Beer, 3-5 times per week Employment/School Employed Home/Environment Lives with Alone. Marital Status of Patient if Patient Independent Adult: Unmarried. Nutrition/Health Diet: Regular. Caffeine intake amount: 3 cups of coffee daily. Substance Use Denies Tobacco Smoking tobacco use: 10 or more cigarettes (1/2 pack or more)/day in last 30 days. Type: Cigarettes. per day 0.5 ppd. Past Surgical/Procedure History Removal of Drainage Device from Left Pleural Cavity, External Approach (10/10/2021) BRONCHOSCOPY DIAGNOSTIC (N/A) (10/08/2021) Destruction of Thoracic Nerve, Percutaneous Endoscopic Approach (10/08/2021) Insertion of Infusion Device into Upper Vein, Percutaneous Approach (10/08/2021) Insertion of Monitoring Device into Upper Artery, Percutaneous Approach (10/08/2021) PLATING RIB (Left) (10/08/2021) Release Bilateral Lungs, Percutaneous Endoscopic Approach (10/08/2021) Reposition 3 or More Ribs with Internal Fixation Device, Open Approach (10/08/2021) VATS WITH DECORTICATION (Left) (10/08/2021) Hemorrhage Rhinoplasty Right foot Surgery Tonsillectomy and adenoidectomy [place] tooth Family History Diabetes: Mother. Hypertension: Mother. Problem List/Past Medical History Ongoing Diabetic retinopathy associated with type 1 diabetes mellitus DM (diabetes mellitus) HTN (hypertension) Hypothyroid Tobacco use Historical DM (diabetes mellitus) Electronically Signed on 10/21/21 17:17 DO Wise [facility] XR Chest 2 Viewson 1 XR Chest 2 Views EXAMINATION: TWO XRAY VIEWS OF THE CHEST 10/21/2021 12:33 pm COMPARISON: October 11, 2021 HISTORY: ORDERING SYSTEM PROVIDED HISTORY: Surgical aftercare, respiratory system, Closed flail chest with nonunion, Trapped lung, Chronic chest wall pain; Assess for change after left VATS/decortication/mu ltirib ORIF;Other (please specify) TECHNOLOGIST PROVIDED HISTORY: Tech Provided Reason for Exam: s/p post-op Type of Encounter: Follow up Relevant Medical/Surgical History: s/p post-op left rib surgery 2 weeks ago, former smoker Acuity: 2 weeks Follow-up FINDINGS: There has been ORIF of several left-sided ribs, stable. Right IJ central venous catheter and left pleural drain have been removed. The right lung is clear. Small left pleural effusion is present. Left lung is otherwise clear. No evidence of pneumothorax. IMPRESSION: 1. Interval removal of left pleural drain as well as right IJ central venous catheter. 2. Persistent small left pleural effusion. No evidence of pneumothorax at this time. 3. Status post ORIF of multiple left-sided ribs, stable. Ordering Provider: Dereje Turner Final Dictated by: MD Levy David Dictated DT/TM: 10/21/2021 2:58 pm Signed by: MD Levy David S Signed (Electronic Signature): 10/21/2021 2:58 pm Normal [facility] Auto Diffon 10-11-2021 Baso Absolute 0.0 x1000 Invalid Interpretation Code [facility] Comment on above: Order Comment: Order added by [email or web address]. Performed By: #### 2 148376, 8165028, 6207185, 2471196, 9071118432, 6840725, 1632098, 15906819 #### [facility] [address] [place] [address] Basophils/100 WBC (Bld) 0.4 % Normal 0.0-3.0 [facility] Comment on above: Order Comment: Order added by [email or web address]_AUTO. Performed By: #### 2 945981, 9869691, 1239584, 3721844, 2171913824, 8946373, 2759465, 50223952 #### [facility] [address] [place] [address] Eos Absolute 0.1 x1000 Invalid Interpretation Code [facility] Comment on above: Order Comment: Order added by [email or web address]. Performed By: #### 2 037967, 8277762, 7120989, 0259239, 2235680712, 1038549, 0785973, 36735627 #### [facility] [address] [place] [address] Eosinophils/100 WBC (Bld) 2.9 % Normal 0.0-6.0 [facility] Comment on above: Order Comment: Order added by GL_CBC_AUTO. Performed By: #### 2 981725, 3658862, 5083002, 3055264, 0099803346, 7582667, 7604555, 08432946 #### [facility] [address] [place] [address] Lymph Absolute 1.0 x1000 Invalid Interpretation Code [facility] Comment on above: Order Comment: Order added by GL_CBC_AUTO. Performed By: #### 2 599941, 5583900, 9680550, 5563534, 0157642009, 9492966, 5016895, 95137000 #### [facility] [address] [place] [address] Lymphocytes/100 WBC (Bld) 19.6 % Normal 14.0-47.0 [facility] Comment on above: Order Comment: Order added by GL_CBC_AUTO. Performed By: #### 2 138370, 3715494, 2392190, 9544759, 8387585577, 1348870, 4174166, 84018558 #### [facility] [address] [place] [address] [place] Absolute 0.6 x1000 Invalid Interpretation Code [facility] Comment on above: Order Comment: Order added by [email or web address]_AUTO. Performed By: #### 2 160692, 6735267, 3492798, 8947432, 5928620133, 0123950, 8167754, 89373448 #### [facility] [address] [place] [address] Monocytes/100 WBC (Bld) 12.8 % High 0.0-10.0 [facility] Comment on above: Order Comment: Order added by GL_CBC_AUTO. Performed By: #### 2 646564, 9013710, 7544675, 9747556, 3534949738, 8355228, 5993519, 48572329 #### [facility] [address] [place] [address] Neutro Absolute 3.2 x1000 Invalid Interpretation Code [facility] Comment on above: Order Comment: Order added by GL_CBC_AUTO. Performed By: #### 2 039471, 4429625, 1411403, 8017621, 2120389394, 5657805, 8455022, 64570053 #### [facility] [address] [place] [address] Neutro Auto 64.3 % Normal 43.0-77.0 [facility] Comment on above: Order Comment: Order added by GL_CBC_AUTO. Performed By: #### 2 932583, 9158629, 4907321, 3845375, 1578906850, 7905399, 6929491, 64582391 #### [facility] [address] [place] [address] NRBC % 0.1 % Invalid Interpretation Code [facility] Comment on above: Order Comment: Order added by GL_CBC_AUTO. Performed By: #### 2 696159, 3219198, 8734752, 1082141, 0080669920, 7394235, 9614344, 64638412 #### [facility] [address] [place] [address] BMPon 10-11-2021 Calcium [Mass/Vol] 9.7 mg/dL Invalid Interpretation Code [facility] Comment on above: Result Comment: Resu lt created by discern rule: [email or web address]_[email or web address] Performed By: #### 2 855699, 7845972, 1757312, 0098440, 0707399362, 3003983, 0657414, 07121132 #### [facility] [address] [place] [address] Anion gap [Moles/Vol] 11 mmol/L Normal 5-15 [facility] Comment on above: Performed By: #### 2 120275, 4675993, 1582465, 1749998, 6382659071, 8671005, 7150460, 35527965 #### [facility] [address] [place] [address] Calcium [Mass/Vol] 8.6 mg/dL Normal 8.5-10.1 [facility] Comment on above: Performed By: #### 2 671507, 0978145, 0605237, 9891666, 8465203708, 5312013, 3312282, 37620921 #### [facility] [address] [place] [address] Chloride [Moles/Vol] 104 mmol/L Normal 98-107 [facility] Comment on above: Performed By: #### 2 261637, 8629193, 3133020, 9766411, 6183190756, 0006410, 5306699, 63389328 #### [facility] [address] [place] [address] CO2 [Moles/Vol] 25 mmol/L Normal 21-32 [facility] Comment on above: Performed By: #### 2 374635, 6282366, 4292986, 5825105, 6204903114, 1879616, 0395290, 52213477 #### [facility] [address] [place] [address] Creatinine [Mass/Vol] 1.09 mg/dL Normal 0.60-1.30 [facility] Comment on above: Performed By: #### 2 713716, 1189664, 5337624, 6527530, 7165128327, 8449165, 6849658, 57123757 #### [facility] [address] [place] [address] Glucose [Mass/Vol] 121 mg/dL High 74-106 [facility] Comment on above: Performed By: #### 2 699759, 1829200, 5814332, 8381554, 0784544124, 4111123, 6372664, 26993969 #### [facility] [address] [place] [address] Potassium [Moles/Vol] 4.7 mmol/L Normal 3.5-5.1 [facility] Comment on above: Performed By: #### 2 397773, 3453095, 4621870, 7936536, 8173555336, 4614584, 1470376, 54275968 #### [facility] [address] [place] [address] Sodium [Moles/Vol] 135 mmol/L Low 136-145 [facility] Comment on above: Performed By: #### 2 063534, 3291439, 9651445, 1723617, 9626273425, 6592889, 9034195, 57023176 #### [facility] [address] [place] [address] Urea nitrogen [Mass/Vol] 20 mg/dL High 7-18 [facility] Comment on above: Performed By: #### 2 441034, 9918932, 0050152, 8472551, 4302874926, 5680766, 3316865, 83434617 #### [facility] [address] [place] [address] CBC w/ Diffon 10-11-2021 Erythrocyte distribution width (RBC) [Ratio] 18.0 % High 11.0-15.0 [facility] Comment on above: Performed By: #### 2 853792, 8066578, 3138049, 7258495, 9282897402, 0301846, 4499538, 62217272 #### [facility] [address] [place] [address] Hematocrit (Bld) [Volume fraction] 28.2 % Low 42.0-52.0 [facility] Comment on above: Performed By: #### 2 300897, 6594004, 3683418, 4429529, 7562999281, 1930612, 0766933, 35578426 #### [facility] [address] [place] [address] Hemoglobin (Bld) [Mass/Vol] 9.3 g/dL Low 14.0-18.0 [facility] Comment on above: Performed By: #### 2 315803, 0449825, 2268106, 6020942, 9373568272, 7519714, 4604057, 73918932 #### [facility] [address] [place] [address] MCH (RBC) [Entitic mass] 28.4 pg Normal 27.0-31.0 [facility] Comment on above: Performed By: #### 2 563323, 7123246, 7876176, 7230972, 3320578045, 2605423, 5995560, 30953098 #### [facility] [address] [place] [address] MCHC (RBC) [Mass/Vol] 33.0 g/dL Normal 32.0-36.0 [facility] Comment on above: Performed By: #### 2 853680, 1101591, 8720498, 7367519, 3324053625, 1472195, 8903604, 70957587 #### [facility] [address] [place] [address] MCV (RBC) [Entitic vol] 86.1 fL Normal 80.0-100.0 [facility] Comment on above: Performed By: #### 2 042704, 3229257, 8686973, 5569655, 9570762698, 6238540, 2719769, 76361026 #### [facility] [address] [place] [address] Platelets 249 x1000 Normal 144-420 [facility] Comment on above: Performed By: #### 2 424097, 1141467, 0882928, 9155986, 8480000413, 8424391, 2640449, 90990426 #### [facility] [address] [place] [address] RBC 3.28 million Low 4.70-6.10 [facility] Comment on above: Performed By: #### 2 502674, 4037695, 8431896, 3097389, 7881710117, 0907735, 9974692, 56177707 #### [facility] [address] [place] [address] WBC 5.0 x1000 Normal 4.8-10.8 [facility] Comment on above: Performed By: #### 2 254767, 9157099, 4372309, 0644128, 9915514837, 7942960, 7981911, 22511285 #### [facility] [address] [place] [address] Cardiothoracic Progress Note on 10-11-2021 Cardiothoracic Progress Note Chief Complaint Postop day #3 status post left VATS, decortication, left multirib ORIF Subjective Patient reports significant improvement in symptoms this morning. Pain much better controlled. No significant shortness of breath. Nausea significantly improved as well. Denying abdominal pain. Passing gas and having bowel movements. Ambulating without issues. On room air. Patient reports that he does not have transportation home until tomorrow. Lives alone. -Nursing report: Patient had a hypoglycemic event this morning measured at 36 mg/dL. Review of Systems All other systems are negative unless stated otherwise in the HPI. Objective 24-hour TRESA drain output: 45 cc Vitals & Measurements Vitals Signs and Measurements within 24 hours T: 98.5 ?F (Oral) T: 97.1 ?F (Temporal Artery) TMIN: 97.1 ?F (Temporal Artery) TMAX: 98.5 ?F (Oral) HR: 87 (Peripheral) HR: 88 (Monitored) RR: 28 BP: 143/68 SpO2: 96% WT: 65.6 kg (Measured) Intake and Output Oral Intake: 240 mL (10/11/21) Type of Oral Fluid: Water (10/11/21) #1 TRESA drain Chest Left - Surgical Drain, Tube Output: 0 mL (10/11/21) Chest Tube Irrigant Out: 38 mL (10/10/21) Chest Tube Output: 60 mL (10/09/21) Estimated Blood Loss: 30 mL (10/08/21) Stool Count: 0 (10/10/21) Stool Volume: 0 mL (10/11/21) Urinary Catheter Output: 100 mL (10/09/21) Urine Count: 1 (10/10/21) Urine Voided: 300 mL (10/11/21) Urine Count: 1 (10/10/21) Urine Voided: 300 mL (10/11/21) Oxygen Information Oxygen Therapy: Room air (10/11/21 09:35:00) SpO2: 96 % (10/11/21 09:35:00) Oxygen Flow Rate: 1 L/min (10/08/21 19:31:00) Physical Exam General Appearance: NAD, A&Ox3, and pleasant. Speech logical and organized. Follows commands. Out of bed to chair eating breakfast. Skin: warm, dry and overtly intact. No rash. Incisions: Left chest incisions [employer] with Steri-Strips. No erythema or swelling. Chest tube incision site well approximated. Dressing clean and intact. Chest wall without overt erythema or crepitus noted. TRESA drain remains. Scant output. Good collapse. Serosanguineous. HEENT: Eyes aligned. EOM?s intact. Mucosal surfaces pink and moist. Trachea midline. No JVD. Pulmonary: Respirations easy with mild splinting. Bilateral Lung velasquez CTA. Cardiovascular: Rate regular without overt M/R/G. Sinus. Extremities: Equal pulses and capillary refill. Lower extremities without cyanosis or significant edema. Abdomen: S/NT/ND with hypo-active bowel sounds. No guarding or rebound. Neuromuscular: Bilateral upper/lower extremities with intact sensation. Moves all 4 extremities equally. Lab Results Event Name Event Result Date/Time WBC 5 x1000 10/11/21 02:13:00 RBC 3.28 million Low 10/11/21 02:13:00 Hgb 9.3 g/dL Low 10/11/21 02:13:00 Hct 28.2 % Low 10/11/21 02:13:00 Platelets 249 x1000 10/11/21 02:13:00 Glucose Level 121 mg/dL High 10/11/21 02:13:00 Glucose Level 197 mg/dL High 10/10/21 16:24:00 BUN 20 mg/dL High 10/11/21 02:13:00 BUN 25 mg/dL High 10/10/21 16:24:00 Creatinine Level 1.09 mg/dL 10/11/21 02:13:00 Creatinine Level 1.19 mg/dL 10/10/21 16:24:00 Estimated Creatinine Clearance 63.99 mL/min 10/11/21 02:13:00 Estimated Creatinine Clearance 58.61 mL/min 10/10/21 19:07:00 Estimated Creatinine Clearance 58.61 mL/min 10/10/21 19:02:00 Estimated Creatinine Clearance 58.61 mL/min 10/10/21 16:24:00 eGFR AA >60 10/11/21 02:13:00 eGFR AA >60 10/10/21 16:24:00 eGFR Non-AA >60 10/11/21 02:13:00 eGFR Non-AA >60 10/10/21 16:24:00 Sodium Level 135 mmol/L Low 10/11/21 02:13:00 Sodium Level 130 mmol/L Low 10/10/21 16:24:00 Potassium Level 4.7 mmol/L 10/11/21 02:13:00 Potassium Level 4.6 mmol/L 10/10/21 16:24:00 Chloride Level 104 mmol/L 10/11/21 02:13:00 Chloride Level 100 mmol/L 10/10/21 16:24:00 CO2 25 mmol/L 10/11/21 02:13:00 CO2 26 mmol/L 10/10/21 16:24:00 Anion Gap 11 10/11/21 02:13:00 Anion Gap 9 10/10/21 16:24:00 Calcium Level 8.6 mg/dL 10/11/21 02:13:00 Calcium Level 8.7 mg/dL 10/10/21 16:24:00 Amylase Level 33 unit/L 10/10/21 16:24:00 Lipase Level 33 unit/L Low 10/10/21 16:24:00 Magnesium Level 2.1 mg/dL 10/11/21 02:13:00 Diagnostic Results XR CHEST AP PORTABLE 10/11/21 07:42:24 IMPRESSION: Stable small left apical pneumothorax Ordering Provider: Dereje Turner Signed By: MD Weston, Javid Hanks XR CHEST AP PORTABLE 10/10/21 11:16:00 IMPRESSION: Stable small left apical pneumothorax status post left chest tube removal. Ordering Provider: Dereje Turner Signed By: MD Fernandez Francis Assessment/Plan 1. Surgical aftercare, respiratory system Z48.813 -Patient stable morning of postop day #3. -Medically, I feel the patient is likely stable for discharge home today. Unfortunately, he does not have any transportation until tomorrow and lives alone. -Would p (more content not included)... Normal [facility] Mgon 10-11-2021 Magnesium [Mass/Vol] 2.1 mg/dL Normal 1.8-2.4 [facility] Comment on above: Performed By: #### 2 996430, 6942010, 0803909, 7327196, 8192948659, 1148179, 3910973, 70558381 #### [facility] [address] [place] [address] POC Glucon 10-11-2021 Glucose [Mass/Vol] 181 mg/dL High 70-110 [facility] Comment on above: Performed By: #### 2 476358, 4357315, 6781427, 0748665, 7947596385, 7916182, 2869480, 72068314 #### [facility] [address] [place] [address] Glucose [Mass/Vol] 167 mg/dL High 70-110 [facility] Comment on above: Performed By: #### 2 845356, 7515729, 7980696, 8949552, 6148038442, 5833785, 6865028, 52467907 #### [facility] [address] [place] [address] Glucose [Mass/Vol] 39 mg/dL Off scale high 70-110 [facility] Comment on above: Performed By: #### 2 659324, 4926835, 8511485, 5264986, 0498382771, 3329180, 2778430, 23746274 #### [facility] [address] [place] [address] XR CHEST AP PORTABLEon 10-11 XR CHEST AP PORTABLE EXAMINATION: ONE XRAY VIEW OF THE CHEST 10/11/2021 6:03 am COMPARISON: 10/10/2021 HISTORY: ORDERING SYSTEM PROVIDED HISTORY: Line placement, evaluate atelectasis or infiltrates post cardiac surgery;Other (please specify) TECHNOLOGIST PROVIDED HISTORY: Tech Provided Reason for Exam: F/U CHEST TUBE RIB FRACTURES Injury/Trauma or Illness: Illness Type of Encounter: Initial Relevant Medical/Surgical History: S22.42XA LEFT RIB FRACTURE Acuity: ACUTE FINDINGS: There is a right internal jugular central line and drain in the left chest wall unchanged in position and the patient is status post open reduction internal fixation of rib fractures on the left. There is persistent left basilar atelectasis and effusion. There is a tiny left apical pneumothorax. IMPRESSION: Stable small left apical pneumothorax Ordering Provider: Dereje Turner Final Dictated by: MD Ontiveros William Dictated DT/TM: 10/11/2021 7:42 am Signed by: MD Ontiveros William B Signed (Electronic Signature): 10/11/2021 7:42 am Normal [facility] eGFRon 10-11-2021 eGFR AA >60 Invalid Interpretation Code [facility] Comment on above: Result Comment: AfAm = UNITS=mL/min/1.73 m2 Normal Reference Ranges is >60. Persistent reduction of eGFR (<60) for 3 months or more defines chronic kidney disease, while eGFR <15 indicates renal failure. Patients with eGFR values >= 60 may also have CKD if evidence of persistent proteinuria is present. Performed By: #### 2 074964, 9952874, 5909565, 5832128, 3156517531, 5322538, 0515510, 11729089 #### [facility] [address] [place] [address] eGFR Non-AA >60 Invalid Interpretation Code [facility] Comment on above: Result Comment: Norm al Reference Range is >60. Performed By: #### 2 171544, 1108291, 0521770, 5670330, 5697997700, 4974293, 7545633, 44969323 #### [facility] [address] [place] [address] Amyon 10-10-2021 Amylase [Catalytic activity/Vol] 33 U/L Normal 25-115 [facility] Comment on above: Performed By: #### 2 266533, 0395965, 4649546, 1004286, 9943961794, 3675135, 5508364, 99428160 #### [facility] [address] [place] [address] Auto Diffon 10-10-2021 Baso Absolute 0.1 x1000 Invalid Interpretation Code [facility] Comment on above: Order Comment: Order added by [email or web address]. Performed By: #### 2 745591, 2997204, 2617122, 9870090, 0471102603, 7443871, 9951719, 56274476 #### [facility] [address] [place] [address] Basophils/100 WBC (Bld) 0.9 % Normal 0.0-3.0 [facility] Comment on above: Order Comment: Order added by [email or web address]_AUTO. Performed By: #### 2 212106, 1431791, 4877962, 4613497, 0226476048, 7630130, 7794813, 96098407 #### [facility] [address] [place] [address] Eos Absolute 0.1 x1000 Invalid Interpretation Code [facility] Comment on above: Order Comment: Order added by [email or web address]_AUTO. Performed By: #### 2 186703, 1765582, 4949899, 9214147, 7474735270, 3982307, 9202016, 67392832 #### [facility] [address] [place] [address] Eosinophils/100 WBC (Bld) 0.8 % Normal 0.0-6.0 [facility] Comment on above: Order Comment: Order added by [email or web address]_AUTO. Performed By: #### 2 816479, 5849433, 7881840, 0468955, 3851882918, 8513993, 7576134, 21285947 #### [facility] [address] [place] [address] Lymph Absolute 1.0 x1000 Invalid Interpretation Code [facility] Comment on above: Order Comment: Order added by [email or web address]. Performed By: #### 2 570608, 9194230, 0284262, 1725298, 6702950052, 1455097, 8024420, 61840012 #### [facility] [address] [place] [address] Lymphocytes/100 WBC (Bld) 13.0 % Low 14.0-47.0 [facility] Comment on above: Order Comment: Order added by [email or web address]_AUTO. Performed By: #### 2 862102, 6479090, 2630408, 5679315, 0670081718, 3903181, 1639793, 39957118 #### [facility] [address] [place] [address] [place] Absolute 0.8 x1000 Invalid Interpretation Code [facility] Comment on above: Order Comment: Order added by [email or web address]_AUTO. Performed By: #### 2 263066, 3810907, 7638823, 6428686, 5395266946, 4212969, 0819970, 48842651 #### [facility] [address] [place] [address] Monocytes/100 WBC (Bld) 10.3 % High 0.0-10.0 [facility] Comment on above: Order Comment: Order added by [email or web address]_AUTO. Performed By: #### 2 069589, 0123920, 0052997, 4413345, 5133695525, 7107976, 0190254, 83066395 #### [facility] [address] [place] [address] Neutro Absolute 6.0 x1000 Invalid Interpretation Code [facility] Comment on above: Order Comment: Order added by [email or web address]_AUTO. Performed By: #### 2 291888, 1105817, 9912257, 0387516, 5945174605, 1267204, 3797272, 35754819 #### [facility] [address] [place] [address] Neutro Auto 75.0 % Normal 43.0-77.0 [facility] Comment on above: Order Comment: Order added by GL_CBC_AUTO. Performed By: #### 2 737041, 6646252, 7199272, 2331245, 3931433614, 7602803, 4265374, 43648370 #### [facility] [address] [place] [address] NRBC % 0.0 % Invalid Interpretation Code [facility] Comment on above: Order Comment: Order added by [email or web address]_AUTO. Performed By: #### 2 750741, 6928155, 5300833, 8510883, 1158939303, 8794233, 5249334, 67037033 #### [facility] [address] [place] [address] BMPon 10-10-2021 Calcium [Mass/Vol] 9.8 mg/dL Invalid Interpretation Code [facility] Comment on above: Result Comment: Resu lt created by discern rule: [email or web address] Performed By: #### 2 325151, 3761425, 8506472, 0681278, 9297977451, 6497118, 9130948, 84099609 #### [facility] [address] [place] [address] Anion gap [Moles/Vol] 9 mmol/L Normal 5-15 [facility] Comment on above: Performed By: #### 2 218787, 0793274, 4817358, 4177006, 9807523183, 6106732, 1762241, 51724238 #### [facility] [address] [place] [address] Calcium [Mass/Vol] 8.7 mg/dL Normal 8.5-10.1 [facility] Comment on above: Performed By: #### 2 665734, 8784376, 7278218, 9451687, 6798155968, 1952498, 7080189, 15159378 #### [facility] [address] [place] [address] Chloride [Moles/Vol] 100 mmol/L Normal 98-107 [facility] Comment on above: Performed By: #### 2 630632, 2543086, 5311094, 1862355, 2724763195, 2280374, 8929175, 54416100 #### [facility] [address] [place] [address] CO2 [Moles/Vol] 26 mmol/L Normal 21-32 [facility] Comment on above: Performed By: #### 2 713424, 2220399, 7117932, 0927879, 5732216152, 8415239, 1310376, 89459892 #### [facility] [address] [place] [address] Creatinine [Mass/Vol] 1.19 mg/dL Normal 0.60-1.30 [facility] Comment on above: Performed By: #### 2 379911, 3318619, 6253296, 4341844, 0796513723, 7844451, 7308146, 10957171 #### [facility] [address] [place] [address] Glucose [Mass/Vol] 197 mg/dL High 74-106 [facility] Comment on above: Performed By: #### 2 842749, 3412194, 7072085, 5458672, 9587674834, 2092390, 4302268, 32419707 #### [facility] [address] [place] [address] Potassium [Moles/Vol] 4.6 mmol/L Normal 3.5-5.1 [facility] Comment on above: Performed By: #### 2 170636, 1288363, 6115325, 3401338, 1003222060, 1262351, 3995150, 27263409 #### [facility] Laboratory [address] [place] [address] Sodium [Moles/Vol] 130 mmol/L Low 136-145 [facility] Comment on above: Performed By: #### 2 117283, 6978335, 9952653, 9973847, [id number], 9086046, 0930567, 24241181 #### [facility] Laboratory [address] [place] [address] Urea nitrogen [Mass/Vol] 25 mg/dL High 7-18 [facility] Comment on above: Performed By: #### 2 705239, 6652828, 5735637, 7179221, 6044779201, 7123306, 8237830, 77745123 #### [facility] Laboratory [address] [place] [address] Calcium [Mass/Vol] 9.3 mg/dL Invalid Interpretation Code [facility] Comment on above: Result Comment: Resu lt created by discern rule: GL_CORR_CALCIUM_CALC Performed By: #### 2 053823, 5035356, 3656786, 5792667, 4481373775, 7966481, 6239637, 66790952 #### [facility] Laboratory [address] [place] [address] Anion gap [Moles/Vol] 17 mmol/L High 5-15 [facility] Comment on above: Performed By: #### 2 540524, 4865338, 2554103, 0361165, 2398553339, 5499076, 2763613, 44008071 #### [facility] Laboratory [address] [place] [address] Calcium [Mass/Vol] 8.2 mg/dL Low 8.5-10.1 [facility] Comment on above: Performed By: #### 2 196995, 3433461, 9650132, 8567178, 9605476078, 6075504, 9155762, 34797921 #### [facility] Laboratory [address] [place] [address] Chloride [Moles/Vol] 98 mmol/L Normal 98-107 [facility] Comment on above: Performed By: #### 2 094035, 7883401, 4355931, 8945020, 1545730709, 1269616, 0158713, 00068787 #### [facility] Laboratory [address] [place] [address] CO2 [Moles/Vol] 25 mmol/L Normal 21-32 [facility] Comment on above: Performed By: #### 2 893438, 9515701, 9594630, 3560935, 2356843312, 5375897, 5596624, 01527943 #### [facility] Laboratory [address] [place] [address] Creatinine [Mass/Vol] 1.63 mg/dL High 0.60-1.30 [facility] Comment on above: Performed By: #### 2 136158, 1932814, 1919631, 9394914, 6046214668, 3051055, 3975174, 82825158 #### [facility] Laboratory [address] [place] [address] Glucose [Mass/Vol] 348 mg/dL High 74-106 [facility] Comment on above: Performed By: #### 2 480100, 3902657, 1741925, 4122210, 3417128822, 6653862, 3681214, 13839906 #### [facility] Laboratory [address] [place] [address] Potassium [Moles/Vol] 5.1 mmol/L Normal 3.5-5.1 [facility] Comment on above: Performed By: #### 2 961545, 2156734, 1539237, 7660386, 2614312064, 8271236, 4342790, 64811746 #### [facility] Laboratory [address] [place] [address] Sodium [Moles/Vol] 135 mmol/L Low 136-145 [facility] Comment on above: Performed By: #### 2 607762, 3346946, 2352397, 5218206, 5533343066, 9924896, 3226711, 96293008 #### [facility] Laboratory [address] [place] [address] Urea nitrogen [Mass/Vol] 31 mg/dL High 7-18 [facility] Comment on above: Performed By: #### 2 212255, 8486664, 1847595, 8162344, 7770719803, 1968352, 0784170, 29724783 #### [facility] Laboratory [address] [place] [address] CBC w/ Diffon 10-10-2021 Erythrocyte distribution width (RBC) [Ratio] 18.2 % High 11.0-15.0 [facility] Comment on above: Performed By: #### 2 700969, 4549026, 3475265, 4342064, 9193666037, 8403520, 4174399, 95905840 #### [facility] Laboratory [address] [place] [address] Hematocrit (Bld) [Volume fraction] 28.8 % Low 42.0-52.0 [facility] Comment on above: Performed By: #### 2 141081, 0589967, 0318578, 4034769, 3212517558, 7859850, 5382030, 94052641 #### [facility] Laboratory [address] [place] [address] Hemoglobin (Bld) [Mass/Vol] 9.4 g/dL Low 14.0-18.0 [facility] Comment on above: Performed By: #### 2 259288, 9501080, 8001016, 7735271, 5488238236, 5012404, 5849007, 21727544 #### [facility] Laboratory [address] [place] [address] MCH (RBC) [Entitic mass] 28.0 pg Normal 27.0-31.0 [facility] Comment on above: Performed By: #### 2 177834, 1594543, 8573645, 5672593, 7149114714, 6499752, 3540389, 27519646 #### [facility] Laboratory [address] [place] [address] MCHC (RBC) [Mass/Vol] 32.6 g/dL Normal 32.0-36.0 [facility] Comment on above: Performed By: #### 2 669438, 7392424, 4120298, 2478264, 0497400957, 3482756, 7973190, 24754813 #### [facility] Laboratory [address] [place] [address] MCV (RBC) [Entitic vol] 86.0 fL Normal 80.0-100.0 [facility] Comment on above: Performed By: #### 2 809982, 3052663, 1607734, 6540666, 1648005082, 2587775, 0417355, 44258974 #### [facility] Laboratory [address] [place] [address] Platelets 258 x1000 Normal 144-420 [facility] Comment on above: Performed By: #### 2 423960, 0018092, 3843920, 5129801, 9090713413, 8482286, 8173047, 46164051 #### [facility] Laboratory [address] [place] [address] RBC 3.35 million Low 4.70-6.10 [facility] Comment on above: Performed By: #### 2 118013, 9369153, 4469702, 6175749, 8783205625, 4324737, 8500001, 55690897 #### [facility] Laboratory [address] [place] [address] WBC 8.0 x1000 Normal 4.8-10.8 [facility] Comment on above: Performed By: #### 2 853817, 3826198, 1884992, 1695735, 1738270051, 2955070, 8084893, 02495204 #### [facility] Laboratory [address] [place] [address] Cardiothoracic Progress Note on 10-10-2021 Cardiothoracic Progress Note Chief Complaint Postop day #2 status post left VATS, decortication, left multirib ORIF Subjective Patient reports ongoing postop soreness but "tolerable." Denying any shortness of breath. -RN report: Elevated blood glucose levels through the night. Received 20 Lantus yesterday evening. Short acting dosed by on-call CT surgeon last night. Otherwise, no acute changes. Review of Systems All other systems are negative unless stated otherwise in the HPI. Objective 20 Lao tube output: 60 cc 24-hour TRESA drain output: 155 cc 24-hour urine output: 2.125 L Vitals & Measurements Vitals Signs and Measurements within 24 hours T: 98.1 ?F (Oral) T: 97.6 ?F (Temporal Artery) TMIN: 97.6 ?F (Temporal Artery) TMAX: 98.1 ?F (Oral) HR: 95 (Peripheral) HR: 89 (Monitored) RR: 20 BP: 126/61 BP: 119/63 (Line) SpO2: 96% WT: 66.4 kg (Measured) Intake and Output Oral Intake: 0 mL (10/10/21) Type of Oral Fluid: Water (10/10/21) #1 TRESA drain Chest Left - Surgical Drain, Tube Output: 30 mL (10/10/21) #1 Lateral, Left - Chest Tube Irrigant Out: 38 mL (10/10/21) #1 Lateral, Left - Chest Tube Output: 60 mL (10/09/21) Estimated Blood Loss: 30 mL (10/08/21) Stool Count: 0 (10/10/21) Urinary Catheter Output: 100 mL (10/09/21) Urine Voided: 200 mL (10/10/21) Urine Voided: 200 mL (10/10/21) Oxygen Information Oxygen Therapy: Room air (10/10/21 08:23:00) SpO2: 96 % (10/10/21 08:23:00) Oxygen Flow Rate: 1 L/min (10/08/21 19:31:00) Physical Exam General Appearance: NAD, A&Ox3, and pleasant. Speech logical and organized. Follows commands. Out of bed to chair. Skin: warm, dry and overtly intact. No rash. Incisions: Left chest wall dressings clean dry and intact. No significant erythema or crepitus noted. Chest tubes: No appreciated air-leak with good cough on suction. Serosanguineous drainage. Scant output. HEENT: Eyes aligned. EOM?s intact. Mucosal surfaces pink and moist. Trachea midline. No JVD. Right IJ CVC. Pulmonary: Respirations easy with mild splinting. Bilateral Lung velasquez CTA. Cardiovascular: Rate regular without overt M/R/G. Sinus. Extremities: Equal pulses and capillary refill. Lower extremities without cyanosis or significant edema. Abdomen: S/NT/ND with hypo-active bowel sounds. No guarding or rebound. Neuromuscular: Bilateral upper/lower extremities with intact sensation. Moves all 4 extremities equally. Lab Results Labs Most Recent Results Previous Results Previous Results Previous Results WBC 8.0 (OCT 10) H 11.4 (OCT 09) H 13.7 (OCT 08) -- Hgb L 9.4 (OCT 10) L 10.3 (OCT 09) L 11.3 (OCT 08) L 11.0 (OCT 08) Hct L 28.8 (OCT 10) L 31.7 (OCT 09) L 35.7 (OCT 08) L 34.5 (OCT 08) Plt 258 (OCT 10) 282 (OCT 09) 321 (OCT 08) -- Na L 135 (OCT 10) L 132 (OCT 09) 139 (OCT 08) -- K 5.1 (OCT 10) H 5.4 (OCT 09) 3.9 (OCT 08) -- CO2 25 (OCT 10) 22 (OCT 09) 21 (OCT 08) -- Cl 98 (OCT 10) 104 (OCT 09) H 108 (OCT 08) -- Cr H 1.63 (OCT 10) H 1.50 (OCT 09) 1.20 (OCT 08) -- BUN H 31 (OCT 10) H 25 (OCT 09) 18 (OCT 08) -- Glucose Random H 348 (OCT 10) H 405 (OCT 09) H 182 (OCT 08) -- Mg 2.1 (OCT 10) L 1.7 (OCT 09) -- -- Ca L 8.2 (OCT 10) L 7.8 (OCT 09) 8.5 (OCT 08) -- PT 13.1 (OCT 08) -- -- -- PTT 31 (OCT 08) -- -- -- Diagnostic Results XR CHEST AP PORTABLE 10/10/21 09:10:22 IMPRESSION: 1. Tiny left apical pneumothorax, not appreciably changed. 2. Larger left basilar pleural effusion with associated atelectasis. Ordering Provider: Dereje Turner Signed By: MD Yoli, Jose Hinton Assessment/Plan 1. Surgical aftercare, respiratory system Z48.813 -Stable from a surgical standpoint. -Plan for large bore chest tube removal later this morning. Maintain TRESA drain for now. -DC IJ CVC. Adequate peripheral access to be obtained. -Seen in conjunction with supervising physician. See individualized plans below. -Continue good pulmonary hygiene with airway clearance and incentive spirometry. -Continue increase in activity as tolerated with PT/OT/RN. -Out of bed to chair with meals. -Medications reviewed. Changes: Decrease losartan to 50 mg daily. Monitor blood pressure. Add maintenance IV fluid at 75 an hour. -Pain control: No NSAIDs. Continue acetaminophen and as needed narcotics. -GI/DVT prophylaxis: Continue PPIs. DC Lovenox secondary to #4. Ambulating well. -Discharge planning: Possible discharge 24 to 48 hours depending on #3 and 4. 2. 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 -Pain well controlled. Received cryoablation Intra-Op. 3. DM (diabetes mellitus) E11.9 -Management has continued to be an issue over the last 24 hours. -Preop A1c 8.8%. -Patient requested Lantus to be given in the evening instead of the morning. First dose 20 units given last night. -Given bolus dose short acting overnight for glucose measurements greater than 500. -Increase (more content not included)... Normal [facility] Lipon 10-10-2021 Lipase Level 33 unit/L Low 79-393 [facility] Comment on above: Performed By: #### 2 340441, 4718224, 1729298, 9345619, 8328720498, 0682293, 7619605, 36047388 #### [facility] Laboratory [address] [place] [address] Main OR IntraOperative Recor don 10-10-2021 Main OR IntraOperative Record [facility] IntraOp Record - OR Summary Primary Physician: DO Wise Tyrone Finalized Date/Time: 10/10/21 08:27:20 Pt. Name: DOUG NOVOA/Sex: 1960 Male Med Rec #: [id number] Physician: DO Wise Tyrone Financial #: [id number] Pt. Type: I Room/Bed: 258/A Admit/Disch: 10/08/21 09:03:12 - Institution: [facility] - Case Attendees - OR Entry 1 Entry 2 Entry 3 Case Attendee DO Wise Tyrone Cruit, Julie K Inman, Daren L Role Performed Surgeon - Primary Vice President Underwriting ROLLER COASTER DESIGNER Time In 10/08/21 11:40:00 10/08/21 11:40:00 10/08/21 11:40:00 Time Out 10/08/21 17:08:00 10/08/21 17:08:00 10/08/21 14:31:00 Procedure PLATING RIB(Left), PLATING RIB(Left), PLATING RIB(Left), BRONCHOSCOPY BRONCHOSCOPY BRONCHOSCOPY DIAGNOSTIC(N/A), VATS DIAGNOSTIC(N/A), VATS DIAGNOSTIC(N/A), VATS WITH DECORTICATION(Left) WITH DECORTICATION(Left) WITH DECORTICATION(Left) Vendors A - F Vendors G - O Vendors P - Z Surgery, Non-Staff Last Modified By: Viridiana Sutton Janice E Costanzo, Janice E 10/08/21 17:16:38 10/08/21 17:16:58 10/08/21 17:16:38 Entry 4 Entry 5 Entry 6 Case Attendee Jesús Bartlett MD, Dede Hadley, Dereje AMAYA Role Performed Anesthesiologist of Scrub Technologist Vice President Underwriting Assist Record Time In 10/08/21 11:40:00 10/08/21 11:40:00 10/08/21 11:40:00 Time Out 10/08/21 17:08:00 10/08/21 15:00:00 10/08/21 13:05:00 Procedure PLATING RIB(Left), PLATING RIB(Left), PLATING RIB(Left), BRONCHOSCOPY BRONCHOSCOPY BRONCHOSCOPY DIAGNOSTIC(N/A), VATS DIAGNOSTIC(N/A), VATS DIAGNOSTIC(N/A), VATS WITH DECORTICATION(Left) WITH DECORTICATION(Left) WITH DECORTICATION(Left) Vendors A - F Vendors G - O Vendors P - Z Surgery, Non-Staff Last Modified By: Viridiana Sutton Janice E Costanzo, Janice E 10/08/21 17:16:38 10/08/21 17:16:38 10/08/21 17:16:38 Entry 7 Entry 8 Entry 9 Case Attendee Surgery, Non-Staff JOSE LUIS Turner Grant R Galbreath, DO, Tyrone Role Performed Observer Physician Brake Repairer Hydraulic Surgeon - Primary Time In 10/08/21 11:40:00 10/08/21 14:25:00 10/08/21 11:40:00 Time Out 10/08/21 17:08:00 10/08/21 17:08:00 10/08/21 16:30:00 Procedure PLATING RIB(Left), PLATING RIB(Left), PLATING RIB(Left), BRONCHOSCOPY BRONCHOSCOPY BRONCHOSCOPY DIAGNOSTIC(N/A), VATS DIAGNOSTIC(N/A), VATS DIAGNOSTIC(N/A), VATS WITH DECORTICATION(Left) WITH DECORTICATION(Left) WITH DECORTICATION(Left) Vendors A - F Vendors G - O Vendors P - Z Surgery, Non-Staff Last Modified By: Viridiana Sutton Janice E Costanzo, Janice E 10/08/21 17:16:38 10/08/21 17:16:38 10/08/21 17:16:38 Entry 10 Entry 11 Entry 12 Case Attendee Jennifer Yanez Cody Costanzo, Janice E Role Performed Scrub Technologist Vice President Underwriting Vice President Underwriting Time In 10/08/21 14:50:00 10/08/21 11:40:00 10/08/21 16:01:00 Time Out 10/08/21 17:08:00 10/08/21 16:05:00 10/08/21 17:08:00 Procedure PLATING RIB(Left) PLATING RIB(Left) PLATING RIB(Left) Vendors A - F Vendors G - O Vendors P - Z Surgery, Non-Staff Last Modified By: Viridiana Sutton Janice E Costanzo, Janice E 10/08/21 17:16:38 10/08/21 17:16:38 10/08/21 17:16:38 Entry 13 Case Attendee Surgery, Non-Staff Role Performed Industry Representatives Time In 10/08/21 14:15:00 Time Out 10/08/21 17:08:00 Procedure PLATING RIB(Left) Vendors A - F Vendors G - O Vendors P - Z Surgery, Non-Staff isaak su alyx biomet Last Modified By: Viridiana Sutton 10/08/21 17:16:38 General Comments: DEEPTHI KUMAR ATRICURE OUT AT 1415, ISAAK SU ALYX BIOMET [facility] - Case Times - OR Entry 1 Patient In Room Time 10/08/21 11:40:00 Out Room Time 10/08/21 17:08:00 Surgery/Procedure Start Time 10/08/21 12:55:00 Stop Time 10/08/21 16:41:00 Last Modified By: Viridiana Sutton 10/08/21 17:15:43 [facility] - Catheters - OR Entry 1 Device Description ALL PURPOSE ALCAZAR TRAY Device Type Bladder (LATEX FREE) Location Bladder Balloon Inflation 10 ML Amount Is this a urinary Yes Urine Color/ Yellow catheter? Characteristics Present on Arrival No Inserted By Aleah Vargas Time In 10/08/21 12:30:00 DC'd at End of Case No Last Modified By: Aleah Vargas 10/08/21 13:04:56 [facility] - Cautery - OR Pre-Care Text: A.50 - Assesses appropriate use of equipment Im.50 - Implements protective measures to prevent injury due to electrical sources Im.60 - Uses supplies and equipment within safe parameters Entry 1 ESU Type [id number] Grounding Pad Details Grounding Pad Site Thigh Grounding Pad Site External Detail ESU Settings Cut Setting 30 Coag Setting 30 Last Modified By: Aleah Vargas 10/08/21 13:07:25 Post-Care Text: E.10 - Evaluates for signs and symptoms of physical injury to skin and tissue O.70 - Patient is free from signs and symptoms of electrical injury [facility] - Counts Verification - OR Pre-Care Text: A.70 - Assesses risk for retained surgical items Im.20 - Performs required (more content not included)... Normal [facility] Mgon 10-10-2021 Magnesium [Mass/Vol] 2.1 mg/dL Normal 1.8-2.4 [facility] Comment on above: Performed By: #### 2 102600, 8260931, 5826063, 8378729, 7312626527, 4824341, 8950702, 73330748 #### [facility] Laboratory [address] [place] [address] POC Glucon 10-10-2021 Glucose [Mass/Vol] 165 mg/dL High 70-110 [facility] Comment on above: Performed By: #### 2 431365, 7106713, 3176422, 0194959, 5837356986, 8639499, 3093536, 64902586 #### [facility] Laboratory [address] [place] [address] Glucose [Mass/Vol] 192 mg/dL High 70-110 [facility] Comment on above: Performed By: #### 2 965828, 7969372, 2974407, 9143240, 1873113959, 9093983, 2483468, 38848929 #### [facility] Laboratory [address] [place] [address] Glucose [Mass/Vol] 195 mg/dL [facility] 70-110 [facility] Comment on above: Performed By: #### 2 547843, 1992367, 5731611, 2754057, 7029543447, 8065941, 9458955, 75987226 #### [facility] Laboratory [address] [place] [address] Glucose [Mass/Vol] 248 mg/dL [facility] 70-110 [facility] Comment on above: Performed By: #### 2 427603, 0398452, 7261170, 0244913, 7347453760, 2194296, 4934332, 70375893 #### [facility] Laboratory [address] [place] [address] XR CHEST AP PORTABLEon 10-10 XR CHEST AP PORTABLE EXAMINATION: ONE XRAY VIEW OF THE CHEST 10/10/2021 11:08 am COMPARISON: 10/10/2021 HISTORY: ORDERING SYSTEM PROVIDED HISTORY: Assess for change after left chest tube removal.;Other (please specify) TECHNOLOGIST PROVIDED HISTORY: Tech Provided Reason for Exam: left chest tube removal Type of Encounter: Initial Relevant Medical/Surgical History: S22.42XA LEFT RIB FRACTURE Acuity: n/a FINDINGS: There has been interval removal of a left chest tube. There is a small left apical pneumothorax, similar in appearance compared with the previous exam. A small left pleural effusion remains. Subcutaneous emphysema is noted along the left chest wall. The right lung is clear. The mediastinal and cardiac contours are stable. A right internal jugular central venous catheter terminates near the cavoatrial junction, similar to the previous exam. IMPRESSION: Stable small left apical pneumothorax status post left chest tube removal. Ordering Provider: Dereje Turner Final Dictated by: MD Fernandez Franc Dictated DT/TM: 10/10/2021 11:16 am Signed by: MD Fernandez Francis Signed (Electronic Signature): 10/10/2021 11:16 am [facility] XR CHEST AP PORTABLE EXAMINATION: ONE XRAY VIEW OF THE CHEST 10/10/2021 6:08 am COMPARISON: 10/09/2021 HISTORY: ORDERING SYSTEM PROVIDED HISTORY: Line placement, evaluate atelectasis or infiltrates post cardiac surgery;Other (please specify) TECHNOLOGIST PROVIDED HISTORY: Tech Provided Reason for Exam: S22.42XA LEFT RIB FRACTURE Injury/Trauma or Illness: Injury/Trauma Type of Encounter: Initial Acuity: ACUTE FINDINGS: The cardiac silhouette mediastinal contours are stable. There is left-sided chest tube with trace left apical pneumothorax. Left pleural effusion is larger with associated left basilar atelectasis. The right lung is clear. Postsurgical changes are noted along the left ribs. There is a drain along the left chest wall. IMPRESSION: 1. Tiny left apical pneumothorax, not appreciably changed. 2. Larger left basilar pleural effusion with associated atelectasis. Ordering Provider: Dereje Turner Final Dictated by: MD Kent Timothy M Dictated DT/TM: 10/10/2021 9:10 am Signed by: MD Kent Timothy M Signed (Electronic Signature): 10/10/2021 9:10 am Normal [facility] eGFRon 10-10-2021 eGFR AA >60 Invalid Interpretation Code [facility] Comment on above: Result Comment: AfAm = UNITS=mL/min/1.73 m2 Normal Reference Ranges is >60. Persistent reduction of eGFR (<60) for 3 months or more defines chronic kidney disease, while eGFR <15 indicates renal failure. Patients with eGFR values >= 60 may also have CKD if evidence of persistent proteinuria is present. Performed By: #### 2 810581, 9877569, 3031166, 1698926, 1696461190, 7422996, 2726638, 87898117 #### [facility] Laboratory [address] [place] [address] eGFR Non-AA >60 Invalid Interpretation Code [facility] Comment on above: Result Comment: Norm al Reference Range is >60. Performed By: #### 2 338388, 8923262, 1490919, 0759350, 7966518333, 3392578, 6236787, 03379478 #### [facility] Laboratory [address] [place] [address] eGFR AA 53 mL/min Invalid Interpretation Code [facility] Comment on above: Result Comment: AfAm = UNITS=mL/min/1.73 m2 Normal Reference Ranges is >60. Persistent reduction of eGFR (<60) for 3 months or more defines chronic kidney disease, while eGFR <15 indicates renal failure. Patients with eGFR values >= 60 may also have CKD if evidence of persistent proteinuria is present. Performed By: #### 2 510755, 0533343, 8500991, 8295927, 7691300710, 8755789, 2267281, 52210548 #### [facility] Laboratory [address] [place] [address] eGFR Non-AA 44 mL/min Invalid Interpretation Code [facility] Comment on above: Result Comment: Norm al Reference Range is >60. Performed By: #### 2 329690, 0989359, 4047290, 1831954, 1137091706, 3182278, 2295456, 55249612 #### [facility] Laboratory [address] [place] [address] [place]bon 10-09-2021 Albumin [Mass/Vol] 2.6 g/dL Low 3.4-5.0 [facility] Comment on above: Order Comment: Pleas e add to AM lab draw. Performed By: #### 2 032175, 7001519, 9829939, 4191369, 5911513704, 5281420, 8948068, 06214765 #### [facility] Laboratory [address] [place] [address] Auto Diffon 10-09-2021 Baso Absolute 0.0 x1000 Invalid Interpretation Code [facility] Comment on above: Order Comment: Order added by [email or web address]. Performed By: #### 2 653540, 7673822, 6356516, 6010924, 3186059307, 9642883, 2972541, 61271466 #### [facility] Laboratory [address] [place] [address] Basophils/100 WBC (Bld) 0.1 % Normal 0.0-3.0 [facility] Comment on above: Order Comment: Order added by [email or web address]. Performed By: #### 2 531261, 0202034, 7347796, 1289265, 7557809536, 2423647, 2498653, 05249812 #### [facility] Laboratory [address] [place] [address] Eos Absolute 0.0 x1000 Invalid Interpretation Code [facility] Comment on above: Order Comment: Order added by [email or web address]. Performed By: #### 2 916976, 2279368, 1647784, 1196218, 1443052598, 4838286, 6914762, 83095079 #### [facility] Laboratory [address] [place] [address] Eosinophils/100 WBC (Bld) 0.0 % Normal 0.0-6.0 [facility] Comment on above: Order Comment: Order added by [email or web address]. Performed By: #### 2 171624, 0769538, 7430863, 3799271, 2213183597, 6933359, 4498445, 97802920 #### [facility] Laboratory [address] [place] [address] Lymph Absolute 0.6 x1000 Invalid Interpretation Code [facility] Comment on above: Order Comment: Order added by [email or web address]. Performed By: #### 2 088380, 8088456, 6190361, 3138090, 4194316647, 6640964, 3541190, 87378937 #### [facility] Laboratory [address] [place] [address] Lymphocytes/100 WBC (Bld) 5.1 % Low 14.0-47.0 [facility] Comment on above: Order Comment: Order added by [email or web address]. Performed By: #### 2 731122, 4429144, 4921284, 8588755, 3502747207, 8046581, 2241703, 50147574 #### [facility] [facility] [address] [place] [address] [place] Absolute 0.8 x1000 Invalid Interpretation Code [facility] Comment on above: Order Comment: Order added by [email or web address]_AUTO. Performed By: #### 2 926950, 3832075, 1829793, 9167035, [id number], 4542390, 3937183, 69407673 #### [facility] [address] [place] [address] Monocytes/100 WBC (Bld) 7.3 % Normal 0.0-10.0 [facility] Comment on above: Order Comment: Order added by GL_CBC_AUTO. Performed By: #### 2 028488, 0618384, 5692175, 0348434, [id number], 0181512, 0928521, 97596050 #### [facility] [address] [place] [address] Neutro Absolute 10.0 x1000 Invalid Interpretation Code [facility] Comment on above: Order Comment: Order added by GL_CBC_AUTO. Performed By: #### 2 362965, 8955065, 8704060, 8611168, [id number], 1895035, 6534132, 54859910 #### [facility] [address] [place] [address] Neutro Auto 87.5 % High 43.0-77.0 [facility] Comment on above: Order Comment: Order added by GL_CBC_AUTO. Performed By: #### 2 069620, 0143129, 7919879, 7466164, 1609773151, 9573034, 1440564, 85947166 #### [facility] [address] [place] [address] NRBC % 0.0 % Invalid Interpretation Code [facility] Comment on above: Order Comment: Order added by GL_CBC_AUTO. Performed By: #### 2 769115, 3516206, 2023027, 3906152, 2377433018, 8883078, 5748368, 25029197 #### [facility] [address] [place] [address] BMPon 10-09-2021 Calcium [Mass/Vol] 8.9 mg/dL Invalid Interpretation Code [facility] Comment on above: Result Comment: Resu lt created by discern rule: [email or web address]_[email or web address] Performed By: #### 2 330049, 6491578, 1236758, 9849934, [id number], 0702076, 4579953, 83572475 #### [facility] [address] [place] [address] Anion gap [Moles/Vol] 11 mmol/L Normal 5-15 [facility] Comment on above: Performed By: #### 2 580275, 6407190, 2516818, 5049543, 4108439118, 9085859, 5774907, 16710879 #### [facility] [address] [place] [address] Calcium [Mass/Vol] 7.8 mg/dL Low 8.5-10.1 [facility] Comment on above: Performed By: #### 2 537024, 8526892, 4858317, 4873383, 7956478168, 8349229, 1768591, 96036616 #### [facility] [address] [place] [address] Chloride [Moles/Vol] 104 mmol/L Normal 98-107 [facility] Comment on above: Performed By: #### 2 215577, 4136480, 2158172, 0846064, 8252656169, 9124047, 0468751, 90518223 #### [facility] [address] [place] [address] CO2 [Moles/Vol] 22 mmol/L Normal 21-32 [facility] Comment on above: Performed By: #### 2 265759, 5419739, 7840588, 5579320, 2084320798, 1894385, 6133946, 16650848 #### [facility] [address] [place] [address] Creatinine [Mass/Vol] 1.50 mg/dL High 0.60-1.30 [facility] Comment on above: Performed By: #### 2 737388, 8568474, 6272119, 8881909, 0317742675, 5191189, 1938679, 75396607 #### [facility] [address] [place] [address] Glucose [Mass/Vol] 405 mg/dL High 74-106 [facility] Comment on above: Performed By: #### 2 472167, 3377000, 0017057, 6351317, 0851497124, 6667130, 7684244, 34269589 #### [facility] [address] [place] [address] Potassium [Moles/Vol] 5.4 mmol/L High 3.5-5.1 [facility] Comment on above: Performed By: #### 2 734255, 2513436, 6585053, 3512732, 1427935145, 7736152, 7343706, 63793706 #### [facility] [address] [place] [address] Sodium [Moles/Vol] 132 mmol/L Low 136-145 [facility] Comment on above: Performed By: #### 2 344791, 7270766, 7982835, 2697716, 2065605385, 3283906, 7945037, 58809872 #### [facility] [address] [place] [address] Urea nitrogen [Mass/Vol] 25 mg/dL High 7-18 [facility] Comment on above: Performed By: #### 2 922603, 9266421, 3485091, 6730357, 2046901226, 6506729, 8029782, 50153194 #### [facility] [address] [place] [address] CBC w/ Diffon 10-09-2021 Erythrocyte distribution width (RBC) [Ratio] 18.5 % High 11.0-15.0 [facility] Comment on above: Performed By: #### 2 695811, 4296435, 6086235, 7730178, 5527330080, 2762123, 0991178, 62361110 #### [facility] [address] [place] [address] Hematocrit (Bld) [Volume fraction] 31.7 % Low 42.0-52.0 [facility] Comment on above: Performed By: #### 2 005430, 8370189, 2161113, 2463770, 7666889105, 2980262, 7045945, 50851375 #### [facility] [address] [place] [address] Hemoglobin (Bld) [Mass/Vol] 10.3 g/dL Low 14.0-18.0 [facility] Comment on above: Performed By: #### 2 971712, 3840274, 7353717, 6578946, 1293750320, 9297019, 5853775, 20382408 #### [facility] [address] [place] [address] MCH (RBC) [Entitic mass] 28.1 pg Normal 27.0-31.0 [facility] Comment on above: Performed By: #### 2 996376, 6896074, 9384553, 1060739, 6050055804, 5263436, 9839277, 05388413 #### [facility] [address] [place] [address] MCHC (RBC) [Mass/Vol] 32.5 g/dL Normal 32.0-36.0 [facility] Comment on above: Performed By: #### 2 510801, 5319272, 1925998, 2591557, 5881119440, 2427785, 3913547, 88630095 #### [facility] [address] [place] [address] MCV (RBC) [Entitic vol] 86.5 fL Normal 80.0-100.0 [facility] Comment on above: Performed By: #### 2 625496, 0841996, 4052007, 5756182, 1878406344, 2149576, 8233595, 91936972 #### [facility] [address] [place] [address] Platelets 282 x1000 Normal 144-420 [facility] Comment on above: Performed By: #### 2 010023, 9818307, 4708163, 6898239, 5061094440, 8663902, 3384415, 10519984 #### [facility] [address] [place] [address] RBC 3.66 million Low 4.70-6.10 [facility] Comment on above: Performed By: #### 2 830746, 5629276, 2720971, 2248300, 9117271268, 0590464, 3547816, 47489217 #### [facility] [address] [place] [address] WBC 11.4 x1000 High 4.8-10.8 [facility] Comment on above: Performed By: #### 2 777379, 8943686, 7457620, 7512170, 1331630289, 9446073, 6382907, 34708827 #### [facility] [address] [place] [address] Cardiothoracic Progress Note on 10-09-2021 Cardiothoracic Progress Note Chief Complaint POD #1: S/p left VATS decortication and ORIF of left ribs 5, 6, 7, & 8 Subjective Patient is alert and oriented resting comfortably in bed. He is ready to eat breakfast. He does endorse some moderate postoperative pain that is well controlled with current pain medications. He also complains of a dry mouth this morning despite drinking water. He endorses improvement with regards to his breathing postoperatively. He is eager to ambulate and work towards discharge. No significant chest pain, nausea, vomiting, fever. Review of Systems Negative unless noted above. Vitals & Measurements Vitals Signs and Measurements within 24 hours T: 97.3 ?F (Temporal Artery) HR: 88 (Peripheral) HR: 87 (Monitored) RR: 13 BP: 138/59 BP: 164/60 (Line) SpO2: 99% WT: 63.1 kg (Measured) WT: 62 kg (Dosing) Intake and Output Oral Intake: 240 mL (10/09/21) Oral Intake: 480 mL (10/09/21) Type of Oral Fluid: Coffee (10/09/21) Type of Oral Fluid: Coffee, Water (10/09/21) #1 TRESA drain Chest Left - Surgical Drain, Tube Output: 30 mL (10/09/21) #1 Lateral, Left - Chest Tube Output: 0 mL (10/09/21) Estimated Blood Loss: 30 mL (10/08/21) Urinary Catheter Output: 50 mL (10/09/21) Oxygen Information Oxygen Therapy: Room air (10/09/21 09:14:00) SpO2: 99 % (10/09/21 09:14:00) Oxygen Flow Rate: 1 L/min (10/08/21 19:31:00) Physical Exam General: Alert & oriented, well nourished, no acute distress. Afebrile. Lungs: No wheezing, rhonchi, or rales appreciated. Diminished bases. Non-labored respiration. Equal chest expansion. Heart: Normal rate, regular rhythm. No murmur or gallop appreciated. Abdomen: Soft, non-tender, non-distended. Active bowel sounds. Musculoskeletal: Moves all extremities. No peripheral edema. Skin: Skin is warm, dry and pink. Incisions: All incisions covered with clean/dry dressings. TRESA drain in place. Chest Tubes: No air leak on exam. Serosanguineous drainage. Neurologic: No focal deficits observed. Psychiatric: Cooperative, appropriate mood and affect. Lab Results Event Name Event Result Date/Time WBC 11.4 x1000 High 10/09/21 02:13:00 WBC 13.7 x1000 High 10/08/21 19:38:00 RBC 3.66 million Low 10/09/21 02:13:00 RBC 4.12 million Low 10/08/21 19:38:00 Hgb 10.3 g/dL Low 10/09/21 02:13:00 Hgb 11.3 g/dL Low 10/08/21 19:38:00 Hgb 11 g/dL Low 10/08/21 17:59:00 Hct 31.7 % Low 10/09/21 02:13:00 Hct 35.7 % Low 10/08/21 19:38:00 Hct 34.5 % Low 10/08/21 17:59:00 Platelets 282 x1000 10/09/21 02:13:00 Platelets 321 x1000 10/08/21 19:38:00 Glucose Level 405 mg/dL High 10/09/21 02:13:00 Glucose Level 182 mg/dL High 10/08/21 17:59:00 BUN 25 mg/dL High 10/09/21 02:13:00 BUN 18 mg/dL 10/08/21 17:59:00 Creatinine Level 1.5 mg/dL High 10/09/21 02:13:00 Creatinine Level 1.2 mg/dL 10/08/21 17:59:00 Estimated Creatinine Clearance 46.5 mL/min 10/09/21 02:13:00 Estimated Creatinine Clearance 58.13 mL/min 10/08/21 18:59:00 Estimated Creatinine Clearance 58.13 mL/min 10/08/21 17:59:00 eGFR AA 58 mL/min 10/09/21 02:13:00 eGFR AA >60 10/08/21 17:59:00 eGFR Non-AA 48 mL/min 10/09/21 02:13:00 eGFR Non-AA >60 10/08/21 17:59:00 Sodium Level 132 mmol/L Low 10/09/21 02:13:00 Sodium Level 139 mmol/L 10/08/21 17:59:00 Potassium Level 5.4 mmol/L High 10/09/21 02:13:00 Potassium Level 3.9 mmol/L 10/08/21 17:59:00 Chloride Level 104 mmol/L 10/09/21 02:13:00 Chloride Level 108 mmol/L High 10/08/21 17:59:00 CO2 22 mmol/L 10/09/21 02:13:00 CO2 21 mmol/L 10/08/21 17:59:00 Anion Gap 11 10/09/21 02:13:00 Anion Gap 14 10/08/21 17:59:00 Calcium Level 7.8 mg/dL Low 10/09/21 02:13:00 Calcium Level 8.5 mg/dL 10/08/21 17:59:00 Albumin Level 2.6 g/dL Low 10/09/21 02:13:00 Magnesium Level 1.7 mg/dL Low 10/09/21 02:13:00 Diagnostic Results XR CHEST AP PORTABLE 10/09/21 07:55:09 IMPRESSION: No appreciable pneumothorax. No significant interval change appreciated. Minimal left basilar atelectasis. Ordering Provider: Dereje Turner Signed By: MD Monster, Jesus Colvin XR CHEST AP PORTABLE 10/08/21 19:00:47 IMPRESSION: Successful left chest tube insertion with no evidence of pneumothorax. Multiple left rib fractures. Subcutaneous emphysema. Successful central line placement with the tip in the SVC. Ordering Provider: Dereje Turner Signed By: MD Elizabeth, Masha Assessment/Plan 1. Surgical aftercare, respiratory system Z48.813 POD #1 -Overall, patient is doing very well this morning. Continue postoperative care and wound management. -Discontinue MIVF, arterial line, and Alcazar catheter this morning. -Maintain chest tubes to suction today. Patient is okay to ambulate on waterseal. No air leak appreciated on exam this morning. Likely proceed with clamping trial in the next few days. -Pain: Well (more content not included)... [facility] Mgon 10-09-2021 Magnesium [Mass/Vol] 1.7 mg/dL Low 1.8-2.4 [facility] Comment on above: Performed By: #### 2 300453, 5898310, 0505177, 3115964, 3688590802, 5147820, 7643435, 44122342 #### [facility] [address] [place] [address] Nursing Narrative Noteon Nursing Narrative Note Chest tube output significantly decreased. Ensured tubes had no kinks, not clamped, and connected properly. Changed pleurovac at 0330 to rule out a failure of the original one. Still did not get output. Notified Dr. Martin. No orders received. Will continue to monitor. Electronically Signed on 10/09/21 05:13 Kath Botello [facility] POC Glucon 10-09-2021 Glucose [Mass/Vol] 522 mg/dL Off scale high 70-110 [facility] Comment on above: Performed By: #### 2 244002, 2998163, 5632484, 5266460, 9406821503, 7103109, 7762830, 84562631 #### [facility] [address] [place] [address] Glucose [Mass/Vol] 437 mg/dL High 70-110 [facility] Comment on above: Performed By: #### 2 589153, 9284047, 4729855, 9643063, 1943908514, 9520418, 6949914, 51194400 #### [facility] [address] [place] [address] Glucose [Mass/Vol] 448 mg/dL High 70-110 [facility] Comment on above: Performed By: #### 2 907241, 2816504, 8102682, 4948453, 9250676706, 0191213, 4398090, 42024358 #### [facility] [address] [place] [address] Glucose [Mass/Vol] 291 mg/dL High 70-110 [facility] Comment on above: Performed By: #### 2 317124, 2907879, 6217612, 2926297, 7857741290, 4964438, 1830607, 66929323 #### [facility] [address] [place] [address] Glucose [Mass/Vol] 261 mg/dL High 70-110 [facility] Comment on above: Performed By: #### 2 905524, 4042500, 5139349, 0163613, 0972848934, 1195707, 1657441, 89346115 #### [facility] [address] [place] [address] XR CHEST AP PORTABLEon 10-09 XR CHEST AP PORTABLE EXAMINATION: ONE XRAY VIEW OF THE CHEST 10/09/2021 5:58 am COMPARISON: October 08, 2021 HISTORY: ORDERING SYSTEM PROVIDED HISTORY: Line placement, evaluate atelectasis or infiltrates post cardiac surgery;Other (please specify) TECHNOLOGIST PROVIDED HISTORY: Tech Provided Reason for Exam: line placement eval atelectasis and infiltrates s/p sx Injury/Trauma or Illness: Illness Type of Encounter: Recurring Relevant Medical/Surgical History: S22.42XA LEFT RIB FRACTURE, s/p rib plating 10/08/21 Acuity: ongoing FINDINGS: Right IJ central venous catheter terminates near the cavoatrial junction in satisfactory position. Left-sided chest tube and surgical drain appear in stable position. Status post left-sided rib plating. Minimal left basilar airspace disease. Improving subcutaneous emphysema. Left-sided rib fractures redemonstrated. IMPRESSION: No appreciable pneumothorax. No significant interval change appreciated. Minimal left basilar atelectasis. Ordering Provider: Dereje Turner Final Dictated by: MD Hook Benjamin Dictated DT/TM: 10/09/2021 7:55 am Signed by: MD Hook Benjamin A Signed (Electronic Signature): 10/09/2021 7:55 am Normal [facility] eGFRon 10-09-2021 eGFR AA 58 mL/min Invalid Interpretation Code [facility] Comment on above: Result Comment: AfAm = UNITS=mL/min/1.73 m2 Normal Reference Ranges is >60. Persistent reduction of eGFR (<60) for 3 months or more defines chronic kidney disease, while eGFR <15 indicates renal failure. Patients with eGFR values >= 60 may also have CKD if evidence of persistent proteinuria is present. Performed By: #### 2 649450, 8554694, 9165357, 6110239, 2240001193, 7391478, 2884085, 18890003 #### [facility] [address] [place] [address] eGFR Non-AA 48 mL/min Invalid Interpretation Code [facility] Comment on above: Result Comment: Norm al Reference Range is >60. Performed By: #### 2 304168, 4203486, 8419550, 2759092, 0527390891, 6282684, 8495010, 72593314 #### [facility] [address] [place] [address] ABGon 10-08-2021 Base Excess, Art -6.0 mmol/L Low -2.0-2.0 [facility] Comment on above: Performed By: #### 3 4192124 #### [facility] [address] [place] [address] COHgb, Art 1.0 % Normal 0.6-3.0 [facility] Comment on above: Performed By: #### 3 0410582 #### [facility] [address] [place] [address] HCO3 (Bld) [Moles/Vol] 19.5 mmol/L Low 22.0-26.0 [facility] Comment on above: Performed By: #### 3 4547436 #### [facility] [address] [place] [address] Hemoglobin (Bld) [Mass/Vol] 12.3 g/dL Low 13.5-17.5 [facility] Comment on above: Performed By: #### 3 1659843 #### [facility] [address] [place] [address] Inspo2, Art 15 Invalid Interpretation Code [facility] Comment on above: Performed By: #### 3 4413805 #### [facility] [address] [place] [address] MetHgb, Art 0.3 % Normal 0.0-0.6 [facility] Comment on above: Performed By: #### 3 4679614 #### [facility] [address] [place] [address] Mode,Art Simple Mask Normal [facility] Comment on above: Performed By: #### 3 7439896 #### [facility] [address] [place] [address] Oxygen saturation in Blood 99.3 % Normal 90.1-100.0 [facility] Comment on above: Performed By: #### 3 8992160 #### [facility] [address] [place] [address] pCO2 Art 38.9 mmHg Normal 35.0-45.0 [facility] Comment on above: Performed By: #### 3 5243000 #### [facility] [address] [place] [address] pH, Art 7.319 Low 7.350-7.450 [facility] Comment on above: Performed By: #### 3 2496841 #### [facility] [address] [place] [address] pO2, Art 162.8 mmHg High 80.0-110.0 [facility] Comment on above: Performed By: #### 3 4042849 #### [facility] [address] [place] [address] Pt Temp, Art 37.0 Deg C Invalid Interpretation Code [facility] Comment on above: Performed By: #### 3 1896258 #### [facility] [address] [place] [address] Site, Art Arterial Line Normal [facility] Comment on above: Performed By: #### 3 9567827 #### [facility] [address] [place] [address] Srce, Art Arterial Normal [facility] Comment on above: Performed By: #### 3 3101683 #### [facility] [address] [place] [address] ABO/Rhon 10-08-2021 A1 4+ [facility] Comment on above: Performed By: #### 2 543636, 43281651, 628398508 ####[facility] [address] [place] [facility] [place] [address] ABO/Rh Type Positive Invalid Interpretation Code [facility] Comment on above: Performed By: #### 2 752696, 30874672, 338425962 ####[facility] [address] [facility] [place] [address] Anti-A 0 [facility] Comment on above: Performed By: #### 2 313636, 45017598, 407857331 ####[facility] [address] [place] [address] Anti-B 0 [facility] Comment on above: Performed By: #### 2 615541, 65365894, 230988653 ####[facility] [address] [place] [address] Anti-D 4+ [facility] Comment on above: Performed By: #### 2 394746, 68173742, 059001360 ####[facility] [address] [place] [address] B cells 4+ [facility] Comment on above: Performed By: #### 2 321730, 00408954, 410911668 ####[facility] [address] [place] [address] BBID [id number] Invalid Interpretation Code [facility] Comment on above: Performed By: #### 2 060707, 45767741, 131204620 ####[facility] [address] [place] [address] DCon NT [facility] Comment on above: Performed By: #### 2 267654, 42225261, 437442112 ####[facility] [address] [facility] [place] [address] Previous History No Prev History Normal [facility] Comment on above: Performed By: #### 2 244005, 42796418, 163377551 ####[facility] [address] [facility] [place] [address] ABO/Rh Retypeon 10-08-2021 ABO and Rh group Nom (Bld) Blood group O Rh(D) positive Invalid Interpretation Code [facility] Comment on above: Order Comment: Order ed by Discern. Performed By: #### 2 935500, 26378161, [id number] ####[facility] [address] [place] [address] Anti-A 0 [facility] Comment on above: Order Comment: Order ed by Discern. Performed By: #### 2 181123, 99972216, [id number] ####[facility] [address] [place] [facility] [place] [address] Anti-B 0 [facility] Comment on above: Order Comment: Order ed by Discern. Performed By: #### 2 975164, 73537119, 047183907 ####[facility] [address] [facility] [place] [address] Anti-D 4+ [facility] Comment on above: Order Comment: Order ed by Discern. Performed By: #### 2 000869, 39347354, 608027235 ####[facility] [address] [place] [address] ABSC Gelon 10-08-2021 Antibody Screen- Gel Negative [facility] Comment on above: Performed By: #### 2 278905, 18259247, 277745892 ####[facility] [address] [place] [address] SC1 Gel 0 Normal [facility] Comment on above: Performed By: #### 2 685956, 54823273, 334395171 ####[facility] [address] [place] [address] SC2 Gel 0 Normal [facility] Comment on above: Performed By: #### 2 163512, 91139365, 095823905 ####[facility] [address] [place] [address] BMPon 10-08-2021 Anion gap [Moles/Vol] 14 mmol/L Normal 5-15 [facility] Comment on above: Performed By: #### 3 8288396 #### [facility] [address] [place] [address] Calcium [Mass/Vol] 8.5 mg/dL Normal 8.5-10.1 [facility] Comment on above: Performed By: #### 3 4967969 #### [facility] [address] [place] [address] Chloride [Moles/Vol] 108 mmol/L High 98-107 [facility] Comment on above: Performed By: #### 3 4713446 #### [facility] [address] [place] [address] CO2 [Moles/Vol] 21 mmol/L Normal 21-32 [facility] Comment on above: Performed By: #### 3 6071100 #### [facility] [address] [place] [address] Creatinine [Mass/Vol] 1.20 mg/dL Normal 0.60-1.30 [facility] Comment on above: Performed By: #### 3 3252773 #### [facility] [address] [place] [address] Glucose [Mass/Vol] 182 mg/dL High 74-106 [facility] Comment on above: Performed By: #### 3 7560886 #### [facility] [address] [place] [address] Potassium [Moles/Vol] 3.9 mmol/L Normal 3.5-5.1 [facility] Comment on above: Performed By: #### 3 [id number] #### [facility] [address] [place] [address] Sodium [Moles/Vol] 139 mmol/L Normal 136-145 [facility] Comment on above: Performed By: #### 3 [id number] #### [facility] [address] [place] [address] Urea nitrogen [Mass/Vol] 18 mg/dL Normal 7-18 [facility] Comment on above: Performed By: #### 3 [id number] #### [facility] [address] [place] [address] CBC w/o Diffon 10-08-2021 Erythrocyte distribution width (RBC) [Ratio] 18.4 % High 11.0-15.0 [facility] Comment on above: Performed By: #### 3 [id number] #### [facility] [address] [place] [address] Hematocrit (Bld) [Volume fraction] 35.7 % Low 42.0-52.0 [facility] Comment on above: Performed By: #### 3 0886706 #### [facility] [address] [place] [address] Hemoglobin (Bld) [Mass/Vol] 11.3 g/dL Low 14.0-18.0 [facility] Comment on above: Performed By: #### 3 9499095 #### [facility] [address] [place] [address] MCH (RBC) [Entitic mass] 27.3 pg Normal 27.0-31.0 [facility] Comment on above: Performed By: #### 3 [id number] #### [facility] [address] [place] [address] MCHC (RBC) [Mass/Vol] 31.6 g/dL Low 32.0-36.0 [facility] Comment on above: Performed By: #### 3 9584743 #### [facility] [address] [place] [address] MCV (RBC) [Entitic vol] 86.6 fL Normal 80.0-100.0 [facility] Comment on above: Performed By: #### 3 9887112 #### [facility] [address] [place] [address] Platelets 321 x1000 Normal 144-420 [facility] Comment on above: Performed By: #### 3 5071277 #### [facility] [address] [place] [address] RBC 4.12 million Low 4.70-6.10 [facility] Comment on above: Performed By: #### 3 9491215 #### [facility] [address] [place] [address] WBC 13.7 x1000 High 4.8-10.8 [facility] Comment on above: Performed By: #### 3 1153143 #### [facility] [address] [place] [address] COVID Agon 10-08-2021 SARS Ag Negative Normal [facility] Comment on above: Result Comment: This test was performed under the FDA?s Emergency Use Authorization (EUA). Testing was performed using the [employer] SARS Antigen ROCÍO utilizing a lateral flow immunofluorescent assay for the qualitative detection of the nucleocapsid protein antigen from SARS-CoV-2. This test has been approved for use from individuals suspected of Covid-19 by their healthcare provider. Fact sheets for this EUA can be found at the following links: For Healthcare Providers: https://www.fda.gov/media/547062/download For Patients: https://www.fda.gov/media/033790/download Performed By: #### 2 [id number], [id number] ####[facility] [address] [place] [address] Flu A&B Agon 10-08-2021 Influenza A Ag Negative Normal Neg [facility] Comment on above: Performed By: #### 2 [id number], [id number] ####[facility] [address] [place] [address] Influenza B Ag Negative Normal Neg [facility] Comment on above: Performed By: #### 2 [id number], [id number] ####[facility] [address] [place] [address] H&Hon 10-08-2021 Hematocrit (Bld) [Volume fraction] 34.5 % Low 42.0-52.0 [facility] Comment on above: Performed By: #### 3 1247391 #### [facility] [address] [place] [address] Hemoglobin (Bld) [Mass/Vol] 11.0 g/dL Low 14.0-18.0 [facility] Comment on above: Performed By: #### 3 6376243 #### [facility] [address] [place] [address] Main OR PACU Recordon 2020 Main OR PACU Record [facility] PostOp PH I - OR Summary Primary Physician: DO Wise Tyrone Finalized Date/Time: 10/08/21 20:30:54 Pt. Name: DOUG NOVOAO.B./Sex: 1960 Male Med Rec #: [id number] Physician: DO Wise Tyrone Financial #: [id number] Pt. Type: I Room/Bed: [facility]/A Admit/Disch: 10/08/21 09:03:12 - [place] [facility] [place] Attendees - PACU I - OR Entry 1 Case Attendee Shelby Vallecillo Role Performed Nurse - Post Operative Last Modified By: Shelby Vallecillo 10/08/21 16:34:16 [facility] [place] Case Times - PACU I - OR Entry 1 In PACU I/PostProc 10/08/21 17:08:00 Ready for PACU 10/08/21 18:31:00 I/PostProc Discharge Discharge from PACU 10/08/21 18:31:00 I/PostProc Last Modified By: Shelby Vallecillo 10/08/21 20:30:53 [facility] [place] Blood Band - PACU I - OR Entry 1 Blood Band No Blood Band n/a Expiration Last Modified By: Shelby Vallecillo 10/08/21 16:33:59 Finalized By: Shelby Vallecillo Document Signatures Signed By: Shelby Vallecillo 10/08/21 20:30 Normal [facility] Main OR PreOperative Recordo n 10-08-2021 Main OR PreOperative Record [facility] PreOp Record - OR Summary Primary Physician: DO Wise Tyrone Finalized Date/Time: 10/08/21 11:37:03 Pt. Name: DOUG NOVOA YOLETTE ColmenaresB./Sex: 1960 Male Med Rec #: [id number] Physician: DO Wise Tyrone Financial #: [id number] Pt. Type: O Room/Bed: 03/A Admit/Disch: 10/08/21 09:03:12 - Institution: [facility] [place] Case Attendees - PreOp - OR Entry 1 Case Attendee Wendie Gallagher Role Performed Nurse - Preoperative Last Modified By: Wendie Gallagher 10/08/21 09:35:06 [facility] [place] Case Times - PreOp -OR Entry 1 Patient Arrival Time 10/08/21 09:34:00 Circ. 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 Last Modified By: Wendie Gallagher 10/08/21 11:37:01 [facility] [place] - Blood Band - PreOp - OR Entry 1 Blood Band Yes Blood Band 10/11/21 11:01:00 Expiration Last Modified By: Wendie Gallagher 10/08/21 11:01:58 Finalized By: Wendie Gallagher Document Signatures Signed By: Wendie Gallagher 10/08/21 11:37 Normal [facility] POC Glucon 10-08-2021 Glucose [Mass/Vol] 297 mg/dL High 70-110 [facility] Comment on above: Performed By: #### 2 [id number], 6840457, 8568823, 2440475, [id number], 7346304, 2689765, [id number] #### [facility] [address] [place] [address] Glucose [Mass/Vol] 168 mg/dL High 70-110 [facility] Comment on above: Performed By: #### 3 [id number] #### [facility] [address] [place] [address] Glucose [Mass/Vol] 109 mg/dL Normal 70-110 [facility] Comment on above: Performed By: #### 2 [id number] ####[facility] [address] [place] [facility] [place] [address] PTon 10-08-2021 INR Coag (PPP) [Relative time] 1.08 {INR} Low 2.00-3.00 [facility] Comment on above: Performed By: #### 3 [id number] #### [facility] [address] [place] [address] PT Coag (PPP) [Time] 13.1 s Normal 11.0-13.7 [facility] Comment on above: Performed By: #### 3 2410138 #### [facility] [address] [place] [address] PTTon 10-08-2021 aPTT Coag (Bld) [Time] 31 s Normal 24-36 [facility] Comment on above: Result Comment: Lanny pillai therapeutic range for PTT: 74-103 sec. Performed By: #### 3 3537832 #### [facility] [address] [place] [address] Red Blood Cellson 10-08-2021 # of Units 2 Invalid Interpretation Code [facility] Comment on above: Performed By: #### 2 [id number] ####[facility] [address] [place] [address] BBID [id number] Invalid Interpretation Code [facility] Comment on above: Performed By: #### 2 [id number] ####[facility] [address] [place] [address] RBC Product Ready Done Normal [facility] Comment on above: Performed By: #### 2 0781535 ####[facility] [address] [place] [address] RBC Trn Reason Patient in OR Invalid Interpretation [facility] Comment on above: Performed By: #### 2 [id number] ####[facility] [address] [place] [address] Transfusion Req 1 None Normal [facility] Comment on above: Performed By: #### 2 5080851 ####[facility] [address] [place] [address] Transfusion Req 2 None Normal [facility] Comment on above: Performed By: #### 2 1037818 ####[facility] [address] [place] [address] XR CHEST AP PORTABLEon 10-08 XR CHEST AP PORTABLE EXAMINATION: ONE XRAY VIEW OF THE CHEST 10/08/2021 4:26 pm COMPARISON: CT thorax from September 27, 2021 HISTORY: ORDERING SYSTEM PROVIDED HISTORY: Chest tube placement TECHNOLOGIST PROVIDED HISTORY: Tech Provided Reason for Exam: ct placement Type of Encounter: Initial Relevant Medical/Surgical History: S22.42XA LEFT RIB FRACTURE Acuity: acute FINDINGS: A left chest tube has been introduced. Multiple rib fractures and subcu emphysema noted on the left. There are multiple rib reconstructions as well. Central line with the tip in the SVC. IMPRESSION: Successful left chest tube insertion with no evidence of pneumothorax. Multiple left rib fractures. Subcutaneous emphysema. Successful central line placement with the tip in the SVC. Ordering Provider: Dereje Turner Final Dictated by: MD Johnson Moni Dictated DT/TM: 10/08/2021 7:00 pm Signed by: MD Johnson Moni Signed (Electronic Signature): 10/08/2021 7:00 pm Normal [facility] eGFRon 10-08-2021 eGFR AA >60 Invalid Interpretation Code [facility] Comment on above: Result Comment: AfAm = UNITS=mL/min/1.73 m2 Normal Reference Ranges is >60. Persistent reduction of eGFR (<60) for 3 months or more defines chronic kidney disease, while eGFR <15 indicates renal failure. Patients with eGFR values >= 60 may also have CKD if evidence of persistent proteinuria is present. Performed By: #### 3 [id number] #### [facility] [address] [place] [address] eGFR Non-AA >60 Invalid Interpretation Code [facility] Comment on above: Result Comment: Norm al Reference Range is >60. Performed By: #### 3 1773665 #### [facility] Laboratory [address] [place] [address] Provider Letteron 10-04-2021 Provider Letter October 04, 2021 Juan Phelan, [address] [place] [address] Date of Visit: 10/03/2021 Re: DOUG NOVOA : 1960 Dear Juan Phelan, Thank you for referring your pt to [facility]. Please see my attached note. Please feel free to contact our office with any questions or concerns. Sincerely, [facility] Cardioth[facility] The following document(s) were included in the letter: October 03, 2021 15:43:28 EDT - (10/03/2021) [facility] Cardiothoracic Office Visit Missing Attachment (10/03/2021) Cardiothoracic Office Clinic Note Can be viewed in source system Normal [facility] ABGon 10-03-2021 Base Excess, Art -0.7 mmol/L Normal -2.0-2.0 [facility] Comment on above: Performed By: #### 3 [id number] #### [facility] [address] [place] [address] COHgb, Art 6.3 % High 0.6-3.0 [facility] Comment on above: Performed By: #### 3 [id number] #### [facility] [address] [place] [address] HCO3 (Bld) [Moles/Vol] 23.8 mmol/L Normal 22.0-26.0 [facility] Comment on above: Performed By: #### 3 [id number] #### [facility] [address] [place] [address] Hemoglobin (Bld) [Mass/Vol] 13.4 g/dL Low 13.5-17.5 [facility] Comment on above: Performed By: #### 3 [id number] #### [facility] [address] [place] [address] Inspo2, Art 21 Invalid Interpretation Code [facility] Comment on above: Performed By: #### 3 [id number] #### [facility] [address] [place] [address] MetHgb, Art 0.3 % Normal 0.0-0.6 [facility] Comment on above: Performed By: #### 3 [id number] #### [facility] Laboratory [address] [place] [address] Mode,Art Room Air Normal [facility] Comment on above: Performed By: #### 3 [id number] #### [facility] Laboratory [address] [place] [address] Oxygen saturation in Blood 96.0 % Normal 90.1-100.0 [facility] Comment on above: Performed By: #### 3 7367988 #### [facility] [address] [place] [address] pCO2 Art 38.9 mmHg Normal 35.0-45.0 [facility] Comment on above: Performed By: #### 3 [id number] #### [facility] Laboratory [address] [place] [address] pH, Art 7.405 Normal 7.350-7.450 [facility] Comment on above: Performed By: #### 3 0100726 #### [facility] [address] [place] [address] pO2, Art 82.1 mmHg Normal 80.0-110.0 [facility] Comment on above: Performed By: #### 3 0163631 #### [facility] [address] [place] [address] Pt Temp, Art 37.0 Deg C Invalid Interpretation Code [facility] Comment on above: Performed By: #### 3 1274936 #### [facility] [address] [place] [address] Site, Art Right Radial Normal [facility] Comment on above: Performed By: #### 3 1050487 #### [facility] [address] [place] [address] Srce, Art Arterial Normal [facility] Comment on above: Performed By: #### 3 2415671 #### [facility] [address] [place] [address] Auto Diffon 10-03-2021 Baso Absolute 0.1 x1000 Invalid Interpretation Code [facility] Comment on above: Order Comment: Order added by [email or web address]. Performed By: #### 2 371451, 7008925, 0343110, 0146136, [id number], 7878862, 1496485, 69469184 #### [facility] [address] [place] [address] Basophils/100 WBC (Bld) 1.1 % Normal 0.0-3.0 [facility] Comment on above: Order Comment: Order added by GL_CBC_AUTO. Performed By: #### 2 494371, 1650782, 6752330, 5840469, 5957549589, 4123056, 3851802, 30959652 #### [facility] [address] [place] [address] Eos Absolute 0.1 x1000 Invalid Interpretation Code [facility] Comment on above: Order Comment: Order added by GL_CBC_AUTO. Performed By: #### 2 527440, 7753657, 6313770, 8721156, [id number], 7063521, 0384830, 44881279 #### [facility] [address] [place] [address] Eosinophils/100 WBC (Bld) 1.7 % Normal 0.0-6.0 [facility] Comment on above: Order Comment: Order added by GL_CBC_AUTO. Performed By: #### 2 512604, 3052219, 1791382, 0338137, 8826076220, 4779042, 1259237, 80710236 #### [facility] [address] [place] [address] Lymph Absolute 1.8 x1000 Invalid Interpretation Code [facility] Comment on above: Order Comment: Order added by GL_CBC_AUTO. Performed By: #### 2 965979, 4634709, 1560054, 0476070, 6775959364, 5092808, 4686282, 74443596 #### [facility] [address] [place] [address] Lymphocytes/100 WBC (Bld) 20.6 % Normal 14.0-47.0 [facility] Comment on above: Order Comment: Order added by GL_CBC_AUTO. Performed By: #### 2 250790, 2623143, 6981136, 9650588, 2843799536, 7609883, 3333029, 99637622 #### [facility] [address] [place] [address] [place] Absolute 0.7 x1000 Invalid Interpretation Code [facility] Comment on above: Order Comment: Order added by GL_CBC_AUTO. Performed By: #### 2 342303, 7051083, 7335828, 6473139, 5214506463, 8901571, 6430773, 02702402 #### [facility] [address] [place] [address] Monocytes/100 WBC (Bld) 7.7 % Normal 0.0-10.0 [facility] Comment on above: Order Comment: Order added by GL_CBC_AUTO. Performed By: #### 2 144720, 3893962, 6528474, 0908158, 1212685711, 2850968, 2236150, 90185171 #### [facility] [address] [place] [address] Neutro Absolute 6.0 x1000 Invalid Interpretation Code [facility] Comment on above: Order Comment: Order added by GL_CBC_AUTO. Performed By: #### 2 614269, 7708941, 5266222, 8520535, [id number], 1352970, 7205996, 36302258 #### [facility] [address] [place] [address] Neutro Auto 68.9 % Normal 43.0-77.0 [facility] Comment on above: Order Comment: Order added by GL_CBC_AUTO. Performed By: #### 2 722965, 6251329, 6523724, 0730696, 3531189054, 0384317, 9782890, 66386256 #### [facility] [address] [place] [address] NRBC % 0.1 % Invalid Interpretation Code [facility] Comment on above: Order Comment: Order added by GL_CBC_AUTO. Performed By: #### 2 930811, 5918298, 5975278, 7166779, 0368330845, 7153927, 3904604, 39269055 #### [facility] [address] [place] [address] BMPon 10-03-2021 Anion gap [Moles/Vol] 9 mmol/L Normal 5-15 [facility] Comment on above: Performed By: #### 2 972312, 2746591, 8755379, 1907978, 9199448399, 9224771, 3145059, 11185318 #### [facility] [address] [place] [address] Calcium [Mass/Vol] 9.8 mg/dL Normal 8.5-10.1 [facility] Comment on above: Performed By: #### 2 030924, 6062200, 5034887, 5657560, 6117969082, 1883992, 9487893, 72768500 #### [facility] [address] [place] [address] Chloride [Moles/Vol] 102 mmol/L Normal 98-107 [facility] Comment on above: Performed By: #### 2 264040, 3910917, 2619591, 8900427, 6757104138, 8424661, 9081070, 44696584 #### [facility] [address] [place] [address] CO2 [Moles/Vol] 29 mmol/L Normal 21-32 [facility] Comment on above: Performed By: #### 2 160468, 5892778, 7720272, 2044988, 2094487719, 4146197, 5110474, 80469666 #### [facility] [address] [place] [address] Creatinine [Mass/Vol] 1.24 mg/dL Normal 0.60-1.30 [facility] Comment on above: Performed By: #### 2 510575, 7020032, 6825761, 1658451, 6142734728, 1096633, 5917981, 53023519 #### [facility] [address] [place] [address] Glucose [Mass/Vol] 146 mg/dL High 74-106 [facility] Comment on above: Performed By: #### 2 345360, 1049191, 5546976, 9154358, 5586621815, 8918918, 4476685, 71372880 #### [facility] [address] [place] [address] Potassium [Moles/Vol] 4.9 mmol/L Normal 3.5-5.1 [facility] Comment on above: Performed By: #### 2 769827, 1491733, 8779773, 1689581, 6486361324, 2540188, 0420872, 02899323 #### [facility] [address] [place] [address] Sodium [Moles/Vol] 135 mmol/L Low 136-145 [facility] Comment on above: Performed By: #### 2 884078, 6175017, 0088355, 0627980, 9685148190, 0710483, 1844448, 91397201 #### [facility] [address] [place] [address] Urea nitrogen [Mass/Vol] 21 mg/dL High 7-18 [facility] Comment on above: Performed By: #### 2 029796, 4718524, 0038982, 0479803, 9367376641, 2781915, 4997904, 12076296 #### [facility] [address] [place] [address] CBC w/ Diffon 10-03-2021 Erythrocyte distribution width (RBC) [Ratio] 18.6 % High 11.0-15.0 [facility] Comment on above: Performed By: #### 2 703501, 4665771, 1626796, 4713270, 2894150714, 5285469, 6503631, 10040620 #### [facility] [address] [place] [address] Hematocrit (Bld) [Volume fraction] 37.2 % Low 42.0-52.0 [facility] Comment on above: Performed By: #### 2 924457, 6540013, 3865333, 9692122, 6946213889, 9241769, 0947869, 87132199 #### [facility] [address] [place] [address] Hemoglobin (Bld) [Mass/Vol] 12.2 g/dL Low 14.0-18.0 [facility] Comment on above: Performed By: #### 2 256330, 7123919, 6211043, 9133555, 5575786872, 2057091, 3599534, 18630595 #### [facility] [address] [place] [address] MCH (RBC) [Entitic mass] 28.0 pg Normal 27.0-31.0 [facility] Comment on above: Performed By: #### 2 299820, 1660533, 6432978, 1209536, 2502483760, 3750296, 7382247, 23566588 #### [facility] [address] [place] [address] MCHC (RBC) [Mass/Vol] 32.9 g/dL Normal 32.0-36.0 [facility] Comment on above: Performed By: #### 2 115262, 3156333, 5393968, 1504831, 6789378334, 4179163, 7268671, 25066455 #### [facility] [address] [place] [address] MCV (RBC) [Entitic vol] 85.3 fL Normal 80.0-100.0 [facility] Comment on above: Performed By: #### 2 137539, 2121356, 3463988, 2965422, 7668063066, 8178579, 5693565, 31693845 #### [facility] [address] [place] [address] Platelets 346 x1000 Normal 144-420 [facility] Comment on above: Performed By: #### 2 557448, 4410474, 1777010, 4071398, 7803879595, 2282834, 6953149, 82176611 #### [facility] [address] [place] [address] RBC 4.36 million Low 4.70-6.10 [facility] Comment on above: Performed By: #### 2 864287, 7668006, 6705883, 2708986, 4979005346, 3659209, 3091584, 33356880 #### [facility] [address] [place] [address] WBC 8.7 x1000 Normal 4.8-10.8 [facility] Comment on above: Performed By: #### 2 127731, 6035427, 7142981, 1953887, 7548790858, 4378241, 7418387, 28599003 #### [facility] [address] [place] [address] Cardiothoracic Office Clinic Noteon 10-03-2021 Cardiothoracic Office Clinic Note Chief Complaint new pt. -Rib pain d/t fall in May History of Present Illness I had the pleasure of seeing Doug in the office today for chronic rib pain and chest wall pain and instability following a fall from height landing on his left side in May. The patient describes that several days following the fall, he started coughing up green sputum which improved over the following weeks taking Mucinex. He describes that his pain was severe on the left side. He also describes that if he tries to take a deep breath, that he feels a pulling sensation and some discomfort on the left anterior chest wall and internal. Lastly, he describes instability of ribs clicking near his back on the left side with movement, coughing, or breathing. There is significant past medical history includes that the patient is a type I diabetic for the last 30+ years. He reports that his current A1c is 8 which is the lowest its been a long time. He also smokes approximately 1/2 pack/day and has a history of hypertension. He was previously diagnosed with hyperactive thyroid and was treated with radiated iodine and now is hypothyroid taking medication for it. The patient denies a history of chest or lung surgeries. He does have a history of rhinoplasty x2, he denies having adverse bleeding or effects of anesthesia with those procedures. 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 CT IMAGING: Multiple mildly displaced left-sided rib fractures with out significant healing. Minimally displaced fracture of left rib 3 laterally, 4 laterally, 5 laterally, 6 laterally, 7 with moderate displacement and fragment separation laterally, 8 laterally without significant healing, 9 laterally with mild fragment displacement, 10 laterally and 11 12 posteriorly. IMPRESSION: Subpleural consolidation and small loculated left pleural effusion, likely from previous trauma. There are multiple mild to moderately displaced left-sided rib fractures without significant interval healing. No pneumothorax or acute findings otherwise. Review of Systems Constitutional: No fevers, chills, sweats Eye: No recent visual problems ENMT: No ear pain, nasal congestion, sore throat Respiratory: No shortness of breath, cough, does report pain and clicking of the chest wall Cardiovascular: No Chest pain, palpitations, syncope Gastrointestinal: No nausea, vomiting, diarrhea Genitourinary: No hematuria Ervin/Lymph: Negative for bruising tendency, swollen lymph glands Endocrine: Negative for excessive thirst, excessive hunger Musculoskeletal: No back pain, neck pain, joint pain, muscle pain, decreased range of motion Integumentary: No rash, pruritus, abrasions Neurologic: Alert & oriented X 4 Psychiatric: No anxiety, depression Physical Exam Vitals & Measurements HR: 95 (Peripheral) RR: 14 BP: 128/70 SpO2: 99% WT: 64.1 kg (Measured) WT: 64.1 kg (Dosing) General: Alert and oriented, well nourished, no acute distress. Eye: EOMI, normal conjunctiva. HENT: Normocephalic, clear tympanic membranes, normal hearing, moist oral mucosa, no scleral icterus, no sinus tenderness. Neck: Supple, non-tender, no carotid bruits, no JVD, no lymphadenopathy. Lungs: Clear to auscultation and percussion, non-labored respiration. Heart: Normal rate, regular rhythm, no murmur, gallop or edema. Abdomen: Soft, non-tender, non-distended, normal bowel sounds, no masses. Musculoskeletal: Normal range of motion and strength, no tenderness or swelling. Skin: Skin is warm, dry and pink, no rashes or lesions. Neurologic: Awake, alert, and oriented X3, CN II-XII intact. Psychiatric: Cooperative, appropriate mood and affect. Assessment/Plan 1. Flail chest S22.5XXA 2. Trapped lung J98.19 3. Pleural effusion on left J90 I discussed with the patient my rationale and conclusion that ORIF of the malunion and nonunion rib fractures would be beneficial to him. Particularly since he is still experiencing pain and instability. We would also plan to perform decortication and evacuate the chronic effusion likely related to the trauma. The operative plan will be for VATS decortication, open ORIF of the posteriorly displaced ribs, and cryoanalgesia of the associated intercostal segments. I discussed with the patient inherent risks of the procedure including bronchopleural fistula, prolonged air leak, bleeding issues, persistent pain, need for additional procedures, and cosmetic disfigurement from incisions. After being apprised of the risk, the patient would like to proceed with stabilization of the ribs and decortication of the lung. Preoperatively, we will get 3D reconstruction of the rib fractures as well as pulmonary function testing. Thank you for allowing me to participate in Doug's care and please not hesitate to contact me with questions or concerns. Allergies contrast media (iodine-based) (Itch) Medications Basaglar KwikPen 100 units/mL subcutaneous solution, Subcutaneous, Daily, 18-25units daily lev (more content not included)... Normal [facility] Hgb A1con 10-03-2021 eAvg Glucose 204 Invalid Interpretation Code [facility] Comment on above: Result Comment: The mean blood glucose (MBG) is a calculated estimate of the average blood glucose for the past 2-3 months, based on the Hgb A1c value. Performed By: #### 2 [id number], 5587177, 4615990, 1322705, [id number], 9934251, 4822281, [id number] ####[facility] [address] [place] [address] HbA1c (Bld) [Mass fraction] 8.8 % High 4.2-6.3 [facility] Comment on above: Performed By: #### 2 074126, 7368168, 4516570, 3276813, [id number], 3180950, 3428934, [id number] ####[facility] [address] [place] [address] PTon 10-03-2021 INR Coag (PPP) [Relative time] 0.99 {INR} Low 2.00-3.00 [facility] Comment on above: Performed By: #### 2 651593, 6215308, 3089448, 0516770, [id number], 2988714, 5450086, [id number] #### [facility] [address] [place] [address] PT Coag (PPP) [Time] 12.3 s Normal 11.0-13.7 [facility] Comment on above: Performed By: #### 2 279548, 5997075, 9740802, 1355215, [id number], 0195419, 9825023, [id number] #### [facility] [address] [place] [address] PTTon 10-03-2021 aPTT Coag (Bld) [Time] 31 s Normal 24-36 [facility] Comment on above: Result Comment: Sugg ested therapeutic range for PTT: 74-103 sec. Performed By: #### 2 879489, 3985962, 5666487, 6518799, [id number], 7741316, 9615699, [id number] #### [facility] [address] [place] [address] TSHon 10-03-2021 TSH Qn 1.970 m[IU]/L Normal 0.358-3.740 [facility] Comment on above: Performed By: #### 2 826300, 3714892, 6959640, 3679474, [id number], 1317854, 3705671, [id number] #### [facility] [address] [place] [address] eGFRon 10-03-2021 eGFR AA >60 Invalid Interpretation Code [facility] Comment on above: Result Comment: AfAm = UNITS=mL/min/1.73 m2 Normal Reference Ranges is >60. Persistent reduction of eGFR (<60) for 3 months or more defines chronic kidney disease, while eGFR <15 indicates renal failure. Patients with eGFR values >= 60 may also have CKD if evidence of persistent proteinuria is present. Performed By: #### 2 971193, 7389743, 2422522, 0371845, [id number], 3833669, 2319968, [id number] #### [facility] [address] [place] [address] eGFR Non-AA 60 mL/min Invalid Interpretation Code [facility] Comment on above: Result Comment: Norm al Reference Range is >60. Performed By: #### 2 158606, 2688805, 9101952, 5527782, [id number], 3594197, 2760372, [id number] #### [facility] [address] [place] [address] CT Thorax w/o Contraston CT Thorax w/o Contrast EXAMINATION: CT OF THE CHEST WITHOUT CONTRAST 09/27/2021 2:06 pm TECHNIQUE: CT of the chest was performed without the administration of intravenous contrast. Multiplanar reformatted images are provided for review. Dose modulation, iterative reconstruction, and/or weight based adjustment of the mA/kV was utilized to reduce the radiation dose to as low as reasonably achievable. COMPARISON: None. HISTORY: ORDERING SYSTEM PROVIDED HISTORY: Multiple fractures of ribs, bilateral, sequela; CT CHEST WO TECHNOLOGIST PROVIDED HISTORY: Tech Provided Reason for Exam: rib pain Type of Encounter: Initial Relevant Medical/Surgical History: s/p fall off ladder 05/2021 landed on left side, fx 8 ribs, feels some protruding, still having pain, smoker x many years. no prior chest surgery. Acuity: 05/2021 FINDINGS: Mediastinum: The heart is not enlarged. No pericardial effusion. Normal caliber thoracic aorta. The thyroid gland is unremarkable. No lymphadenopathy identified with the limitations of no IV contrast. Atherosclerosis. Calcified mediastinal lymph nodes. Lungs/pleura: Subpleural consolidation likely with scarring in the left lateral chest and lower lobe. Small loculated left pleural effusion adjacent. No pneumothorax. Calcified granuloma in the left upper lobe. Subtle tree and bud opacities in the right upper lobe. Otherwise no focal consolidation. Upper Abdomen: No acute findings within the visualized upper abdomen. Soft Tissues/Bones: Multiple mildly displaced left-sided rib fractures with out significant healing. Minimally displaced fracture of left rib 3 laterally, 4 laterally, 5 laterally, 6 laterally, 7 with moderate displacement and fragment separation laterally, 8 laterally without significant healing, 9 laterally with mild fragment displacement, 10 laterally and 11 12 posteriorly. IMPRESSION: Subpleural consolidation and small loculated left pleural effusion, likely from previous trauma. There are multiple mild to moderately displaced left-sided rib fractures without significant interval healing. No pneumothorax or acute findings otherwise. Ordering Provider: Juan Phelan Final Dictated by: DO Yoon Laura Dictated DT/TM: 09/27/2021 5:45 pm Signed by: DO Yoon Laura Signed (Electronic Signature): 09/27/2021 5:45 pm Normal [facility] CBC with differentialon 08-30 BASO # 0.1 K CUMM Normal 0.0-0.2 [facility] Comment on above: Order Comment: Items in this order include: Comprehensive Metabolic Panel, Lipid Panel, TSH w/ reflex to FT4, CBC with differential, HgbA1C, , , , Testing Performed By: [facility] [address] [place] [address] Dr. Jose Mcdaniel, Publication Manager Performed By: #### C 8, C406, C215, C4124, C47 #### [facility] [address] [place] [address] [address] [place] [address] Basophils/100 WBC (Bld) 1.1 % Normal 0.0-3.0 [facility] Comment on above: Order Comment: Items in this order include: Comprehensive Metabolic Panel, Lipid Panel, TSH w/ reflex to FT4, CBC with differential, HgbA1C, , , , Testing Performed By: [facility] [address] [place] [address] Dr. Jose Mcdaniel, Publication Manager Performed By: #### C 8, C406, C215, C4124, C47 #### [facility] [address] [place] [address] [address] [place] [address] EOS # 0.1 K CUMM Normal 0.0-0.4 [facility] Comment on above: Order Comment: Items in this order include: Comprehensive Metabolic Panel, Lipid Panel, TSH w/ reflex to FT4, CBC with differential, HgbA1C, , , , Testing Performed By: [facility] [address] [place] [address] Dr. Jose Mcdaniel, Publication Manager Performed By: #### C 8, C406, C215, C4124, C47 #### [facility] [address] [place] [address] [address] [place] [address] Eosinophils/100 WBC (Bld) 1.4 % Normal 0.0-7.0 [facility] Comment on above: Order Comment: Items in this order include: Comprehensive Metabolic Panel, Lipid Panel, TSH w/ reflex to FT4, CBC with differential, HgbA1C, , , , Testing Performed By: [facility] [address] [place] [address] Dr. Jose Mcdaniel, Publication Manager Performed By: #### C 8, C406, C215, C4124, C47 #### [facility], [facility]. [address] [place] [address] [address] [place] [address] Erythrocyte distribution width (RBC) [Ratio] 16.1 % High 11.5-15.5 [facility] Comment on above: Order Comment: Items in this order include: Comprehensive Metabolic Panel, Lipid Panel, TSH w/ reflex to FT4, CBC with differential, HgbA1C, , , , Testing Performed By: [facility] [address] [place] [address] Dr. Jose Mcdaniel, Publication Manager Performed By: #### C 8, C406, C215, C4124, C47 #### [facility], [facility]. [address] [place] [address] [address] [place] [address] Hematocrit (Bld) [Volume fraction] 37.4 % Low 42.0-52.0 [facility] Comment on above: Order Comment: Items in this order include: Comprehensive Metabolic Panel, Lipid Panel, TSH w/ reflex to FT4, CBC with differential, HgbA1C, , , , Testing Performed By: [facility] [address] [place] [address] Dr. Jose Mcdaniel, Publication Manager Performed By: #### C 8, C406, C215, C4124, C47 #### [facility], [facility]. [address] [place] [address] [address] [place] [address] Hemoglobin (Bld) [Mass/Vol] 11.8 g/dL Low 13.5-18.0 [facility] Comment on above: Order Comment: Items in this order include: Comprehensive Metabolic Panel, Lipid Panel, TSH w/ reflex to FT4, CBC with differential, HgbA1C, , , , Testing Performed By: [facility] [address] [place] [address] Dr. Jose Mcdaniel, Publication Manager Performed By: #### C 8, C406, C215, C4124, C47 #### [facility] [address] [facility] [address] [place] [address] ImmGrn # 0.0 K CUMM Normal 0.0-0.3 [facility] Comment on above: Order Comment: Items in this order include: Comprehensive Metabolic Panel, Lipid Panel, TSH w/ reflex to FT4, CBC with differential, HgbA1C, , , , Testing Performed By: [facility] [address] [place] [address]. [place] [address] Dr. Jose Mcdaniel, Publication Manager Performed By: #### C 8, C406, C215, C4124, C47 #### [facility], [facility]. [address] [place] [address] [address] [place] [address] ImmGrn % 0.5 % Normal 0.0-3.0 [facility] Comment on above: Order Comment: Items in this order include: Comprehensive Metabolic Panel, Lipid Panel, TSH w/ reflex to FT4, CBC with differential, HgbA1C, , , , Testing Performed By: [facility] [address] [place] [address]. [place] [address] Dr. Jose Mcdaniel, Publication Manager Performed By: #### C 8, C406, C215, C4124, C47 #### [facility], [facility]. [address] [place] [address] [address] [place] [address] LYMPH # 1.6 K CUMM Normal 0.7-4.5 [facility] Comment on above: Order Comment: Items in this order include: Comprehensive Metabolic Panel, Lipid Panel, TSH w/ reflex to FT4, CBC with differential, HgbA1C, , , , Testing Performed By: [facility] [address] [place] [address]. [place] [address] Dr. Jose Mcdaniel, Publication Manager Performed By: #### C 8, C406, C215, C4124, C47 #### [facility] [address] [place] [address] [address] [place] [address] Lymphocytes/100 WBC (Bld) 19.2 % Normal 14.0-46.0 [facility] Comment on above: Order Comment: Items in this order include: Comprehensive Metabolic Panel, Lipid Panel, TSH w/ reflex to FT4, CBC with differential, HgbA1C, , , , Testing Performed By: [facility] [address] [place] [address] Dr. Jose Mcdaniel, Publication Manager Performed By: #### C 8, C406, C215, C4124, C47 #### [facility] [address] [place] [address] [address] [place] [address] MCH (RBC) [Entitic mass] 27.3 pg Normal 27.0-31.0 [facility] Comment on above: Order Comment: Items in this order include: Comprehensive Metabolic Panel, Lipid Panel, TSH w/ reflex to FT4, CBC with differential, HgbA1C, , , , Testing Performed By: [facility] [address] [place] [address] Dr. Jose Mcdaniel, Publication Manager Performed By: #### C 8, C406, C215, C4124, C47 #### [facility] [address] [place] [address] [address] [place] [address] MCHC (RBC) [Mass/Vol] 31.6 g/dL Low 32.0-36.0 [facility] Comment on above: Order Comment: Items in this order include: Comprehensive Metabolic Panel, Lipid Panel, TSH w/ reflex to FT4, CBC with differential, HgbA1C, , , , Testing Performed By: [facility] [address] [place] [address] Dr. Jose Mcdaniel, Publication Manager Performed By: #### C 8, C406, C215, C4124, C47 #### [facility] [address] [place] [address] [address] [place] [address] MCV (RBC) [Entitic vol] 86.6 fL Normal 78.0-100.0 [facility] Comment on above: Order Comment: Items in this order include: Comprehensive Metabolic Panel, Lipid Panel, TSH w/ reflex to FT4, CBC with differential, HgbA1C, , , , Testing Performed By: [facility] [address] [place] [address] Dr. Jose Mcdaniel, Publication Manager Performed By: #### C 8, C406, C215, C4124, C47 #### [facility], [facility]. [address] [place] [address] [address] [place] [address] MONO # 0.7 K CUMM Normal 0.1-1.0 [facility] Comment on above: Order Comment: Items in this order include: Comprehensive Metabolic Panel, Lipid Panel, TSH w/ reflex to FT4, CBC with differential, HgbA1C, , , , Testing Performed By: [facility] [address] [place] [address] Dr. Jose Mcdaniel, Publication Manager Performed By: #### C 8, C406, C215, C4124, C47 #### [facility], [facility]. [address] [place] [address] [address] [place] [address] Monocytes/100 WBC (Bld) 8.0 % Normal 4.0-13.0 [facility] Comment on above: Order Comment: Items in this order include: Comprehensive Metabolic Panel, Lipid Panel, TSH w/ reflex to FT4, CBC with differential, HgbA1C, , , , Testing Performed By: [facility] [address] [place] [address] Dr. Jose Mcdaniel, Publication Manager Performed By: #### C 8, C406, C215, C4124, C47 #### [facility], [facility]. [address] [place] [address] [address] [place] [address] GEORGETTE # 6.0 K CUMM Normal 1.8-7.8 [facility] Comment on above: Order Comment: Items in this order include: Comprehensive Metabolic Panel, Lipid Panel, TSH w/ reflex to FT4, CBC with differential, HgbA1C, , , , Testing Performed By: [facility] [address] [place] [address] Dr. Jose Mcdaniel, Publication Manager Performed By: #### C 8, C406, C215, C4124, C47 #### [facility], [facility]. [address] [place] [address] [place] [address] Neutrophils/100 WBC (Bld) 69.8 % Normal 40.0-74.0 [facility] Comment on above: Order Comment: Items in this order include: Comprehensive Metabolic Panel, Lipid Panel, TSH w/ reflex to FT4, CBC with differential, HgbA1C, , , , Testing Performed By: [facility] [address] [place] [address]. [place] [address] Dr. Jose Mcdaniel, Publication Manager Performed By: #### C 8, C406, C215, C4124, C47 #### [facility] [address] [place] [address] [place] [address] Platelet mean volume (Bld) [Entitic vol] 10.5 fL Normal 8.9-12.6 [facility] Comment on above: Order Comment: Items in this order include: Comprehensive Metabolic Panel, Lipid Panel, TSH w/ reflex to FT4, CBC with differential, HgbA1C, , , , Testing Performed By: [facility] [address] [place] [address] [address] [address] Jose Mcdaniel, Publication Manager Performed By: #### C 8, C406, C215, C4124, C47 #### [facility] [address] [place] [address] [place] [address] PLT 434 K CUMM High 130-400 [facility] Comment on above: Order Comment: Items in this order include: Comprehensive Metabolic Panel, Lipid Panel, TSH w/ reflex to FT4, CBC with differential, HgbA1C, , , , Testing Performed By: [facility] [address] [place] [address] [address] [address] Jose Mcdaniel, Publication Manager Performed By: #### C 8, C406, C215, C4124, C47 #### [facility] [address] [place] [address] [place] [address] RBC 4.32 M CUMM Normal 4.20-5.80 [facility] Comment on above: Order Comment: Items in this order include: Comprehensive Metabolic Panel, Lipid Panel, TSH w/ reflex to FT4, CBC with differential, HgbA1C, , , , Testing Performed By: [facility] [address] [place] [address] Dr. Jose Mcdaniel, Publication Manager Performed By: #### C 8, C406, C215, C4124, C47 #### [facility] [address] [place] [address] [address] [place] [address] WBC 8.5 K CUMM Normal 3.8-10.6 [facility] Comment on above: Order Comment: Items in this order include: Comprehensive Metabolic Panel, Lipid Panel, TSH w/ reflex to FT4, CBC with differential, HgbA1C, , , , Testing Performed By: [facility] [address] [place] [address] Dr. Jose Mcdaniel, Publication Manager Performed By: #### C 8, C406, C215, C4124, C47 #### [facility], [facility]. [address] [place] [address] [address] [place] [address] Comprehensive Metabolic Pane [facility] 09-11-2021 Albumin [Mass/Vol] 4.5 g/dL Normal 3.5-5.0 [facility] Comment on above: Order Comment: Items in this order include: Comprehensive Metabolic Panel, Lipid Panel, TSH w/ reflex to FT4, CBC with differential, HgbA1C, , , , Testing Performed By: [facility] [address] [place] [address]. [place] [address] Dr. Jose Mcdaniel, Publication Manager Performed By: #### C 8, C406, C215, C4124, C47 #### [facility], [facility]. [address] [place] [address] [address] [place] [address] Alk Phos 98 U/L Normal 23-159 [facility] Comment on above: Order Comment: Items in this order include: Comprehensive Metabolic Panel, Lipid Panel, TSH w/ reflex to FT4, CBC with differential, HgbA1C, , , , Testing Performed By: [facility] [address] [place] [address]. [place] [address] Dr. Jose Mcdaniel, Publication Manager Performed By: #### C 8, C406, C215, C4124, C47 #### [facility] [address] [facility] [address] [place] [address] ALT [Catalytic activity/Vol] 22 U/L Normal 0-57 [facility] Comment on above: Order Comment: Items in this order include: Comprehensive Metabolic Panel, Lipid Panel, TSH w/ reflex to FT4, CBC with differential, HgbA1C, , , , Testing Performed By: [facility] [address] [place] [address]. [place] [address] Dr. Jose Mcdaniel, Publication Manager Performed By: #### C 8, C406, C215, C4124, C47 #### [facility] [address] [place] [address] [address] [place] [address] AST [Catalytic activity/Vol] 26 U/L Normal 17-59 [facility] Comment on above: Order Comment: Items in this order include: Comprehensive Metabolic Panel, Lipid Panel, TSH w/ reflex to FT4, CBC with differential, HgbA1C, , , , Testing Performed By: [facility] [address] [place] [address]. [place] [address] Dr. Jose Mcdaniel, Publication Manager Performed By: #### C 8, C406, C215, C4124, C47 #### [facility] [address] [place] [address] [address] [place] [address] Bilirubin [Mass/Vol] 0.3 mg/dL Normal 0.2-1.3 [facility] Comment on above: Order Comment: Items in this order include: Comprehensive Metabolic Panel, Lipid Panel, TSH w/ reflex to FT4, CBC with differential, HgbA1C, , , , Testing Performed By: [facility] [address] [place] [address]. [place] [address] Dr. Jose Mcdaniel, Publication Manager Performed By: #### C 8, C406, C215, C4124, C47 #### [facility] [address] [place] [address] [address] [place] [address] Calcium [Mass/Vol] 10.3 mg/dL Normal 8.5-10.5 [facility] Comment on above: Order Comment: Items in this order include: Comprehensive Metabolic Panel, Lipid Panel, TSH w/ reflex to FT4, CBC with differential, HgbA1C, , , , Testing Performed By: [facility] [address] [place] [address] Dr. Jose Mcdaniel, Publication Manager Performed By: #### C 8, C406, C215, C4124, C47 #### [facility] [address] [place] [address] [address] [place] [address] Chloride [Moles/Vol] 97 mmol/L Low 98-107 [facility] Comment on above: Order Comment: Items in this order include: Comprehensive Metabolic Panel, Lipid Panel, TSH w/ reflex to FT4, CBC with differential, HgbA1C, , , , Testing Performed By: [facility] [address] [place] [address] Dr. Jose Mcdaniel, Publication Manager Performed By: #### C 8, C406, C215, C4124, C47 #### [facility] [address] [place] [address] [address] [place] [address] CO2 [Moles/Vol] 26.0 mmol/L Normal 21.0-32.0 [facility] Comment on above: Order Comment: Items in this order include: Comprehensive Metabolic Panel, Lipid Panel, TSH w/ reflex to FT4, CBC with differential, HgbA1C, , , , Testing Performed By: [facility] [address] [place] [address] Dr. Jose Mcdaniel, Publication Manager Performed By: #### C 8, C406, C215, C4124, C47 #### [facility] [address] [place] [address] [address] [place] [address] Creatinine [Mass/Vol] 1.1 mg/dL Normal 0.3-1.4 [facility] Comment on above: Order Comment: Items in this order include: Comprehensive Metabolic Panel, Lipid Panel, TSH w/ reflex to FT4, CBC with differential, HgbA1C, , , , Testing Performed By: [facility] [address] [place] [address]. [place] [address] Dr. Jose Mcdaniel, Publication Manager Performed By: #### C 8, C406, C215, C4124, C47 #### [facility], [facility] [address] [place] [address] [address] [place] [address] GFR 68 mL/min per 1.73 Normal >60 [facility] Comment on above: Order Comment: Items in this order include: Comprehensive Metabolic Panel, Lipid Panel, TSH w/ reflex to FT4, CBC with differential, HgbA1C, , , , Testing Performed By: [facility] [address] [place] [address]. [place] [address] Dr. Jose Mcdaniel, Publication Manager Result Comment: The GFR estimate is not adjusted for race. If the patient's race is -English, the GFR estimate must be multiplied by a factor of 1.21. Performed By: #### C 8, C406, C215, C4124, C47 #### [facility], [facility]. [address] [place] [address] [address] [place] [id number] Glucose [Mass/Vol] 237 mg/dL High 74-100 [facility] Comment on above: Order Comment: Items in this order include: Comprehensive Metabolic Panel, Lipid Panel, TSH w/ reflex to FT4, CBC with differential, HgbA1C, , , , Testing Performed By: [facility] [address] [place] [address]. [place] [address] Dr. Jose Mcdaniel, Publication Manager Performed By: #### C 8, C406, C215, C4124, C47 #### [facility], [facility]. [address] [place] [address] [address] [place] [address] Potassium [Moles/Vol] 4.7 mmol/L Normal 3.5-5.3 [facility] Comment on above: Order Comment: Items in this order include: Comprehensive Metabolic Panel, Lipid Panel, TSH w/ reflex to FT4, CBC with differential, HgbA1C, , , , Testing Performed By: [facility] [address] [place] [address]. [place] [address] Dr. Jose Mcdaniel, Publication Manager Performed By: #### C 8, C406, C215, C4124, C47 #### [facility] [address] [facility] [address] [place] [address] Protein [Mass/Vol] 7.5 g/dL Normal 6.3-8.4 [facility] Comment on above: Order Comment: Items in this order include: Comprehensive Metabolic Panel, Lipid Panel, TSH w/ reflex to FT4, CBC with differential, HgbA1C, , , , Testing Performed By: [facility] [address] [place] [address]. [place] [address] Dr. Jose Mcdaniel, Publication Manager Performed By: #### C 8, C406, C215, C4124, C47 #### [facility] [address] [place] [address] [place] [address] Sodium [Moles/Vol] 133 mmol/L Low 135-145 [facility] Comment on above: Order Comment: Items in this order include: Comprehensive Metabolic Panel, Lipid Panel, TSH w/ reflex to FT4, CBC with differential, HgbA1C, , , , Testing Performed By: [facility] [address] [place] [address]. [place] [address] Dr. Jose Mcdaniel, Publication Manager Performed By: #### C 8, C406, C215, C4124, C47 #### [facility] [address] [place] [address] [address] [place] [address] Urea nitrogen [Mass/Vol] 27 mg/dL High 8-24 [facility] Comment on above: Order Comment: Items in this order include: Comprehensive Metabolic Panel, Lipid Panel, TSH w/ reflex to FT4, CBC with differential, HgbA1C, , , , Testing Performed By: [facility] [address] [place] [address]. [place] [address] Dr. Jose Mcdaniel, Publication Manager Performed By: #### C 8, C406, C215, C4124, C47 #### [facility] [address] [place] [address] [address] [place] [address] [id number] 10-13-2021 HbA1c (Bld) [Mass fraction] 9.0 % High <5.7 [facility] Comment on above: Order Comment: Items in this order include: Comprehensive Metabolic Panel, Lipid Panel, TSH w/ reflex to FT4, CBC with differential, HgbA1C, , , , Testing Performed By: [facility] [address] [place] [address]. [place] [address] Dr. Jose Mcdaniel, Publication Manager Result Comment: Refe rence Interval: Normal: below 5.7%. Prediabetes: 5.7% to 6.4%. Diabetes: 6.5% or above. Performed By: #### C 8, C406, C215, C4124, C47 #### [facility] [address] [place] [address] [address] [place] [address] Lipid Panelon 09-11-2021 Cholesterol [Mass/Vol] 163 mg/dL Normal <200 [facility] Comment on above: Performed By: #### C 8, C406, C215, C4124, C47 #### [facility] [address] [place] [address] [address] [place] [address] Cholesterol in HDL [Mass/Vol] 76 mg/dL Normal >40 [facility] Comment on above: Performed By: #### C 8, C406, C215, C4124, C47 #### [facility] [address] [place] [address] [address] [place] [address] Cholesterol in LDL [Mass/Vol] 58 mg/dL Normal <130 [facility] Comment on above: Performed By: #### C 8, C406, C215, C4124, C47 #### [facility] [address] [place] [address] [address] [place] [address] Cholesterol.total/ Cholesterol in HDL [Mass ratio] 2.1 {ratio} Normal <4.0 [facility] Comment on above: Performed By: #### C 8, C406, C215, C4124, C47 #### [facility] [facility] [address] [place] [address] Non-HDL Chol 87 Normal LDL Goal + 30 [facility] Comment on above: Result Comment: LDL and Non-HDL goal dependent upon individual risk Performed By: #### C 8, C406, C215, C4124, C47 #### [facility] [facility] [address] [place] [address] Triglyceride [Mass/Vol] 143 mg/dL Normal <150 [facility] Comment on above: Performed By: #### C 8, C406, C215, C4124, C47 #### [facility] [address] [place] [address] [address] [place] [address] VLDL-Calc 29 mg/dl Normal <30 [facility] Comment on above: Performed By: #### C 8, C406, C215, C4124, C47 #### [facility] [address] [place] [address] [address] [place] [address] TSH w/ reflex to FT4on 09-11 TSH 2.20 MIU/mL Normal 0.50-6.00 [facility] Comment on above: Order Comment: Items in this order include: Comprehensive Metabolic Panel, Lipid Panel, TSH w/ reflex to FT4, CBC with differential, HgbA1C, , , , Testing Performed By: [facility] [address] [place] [address] Dr. Jose Mcdaniel, Publication Manager Performed By: #### C 8, C406, C215, C4124, C47 #### [facility] [address] [place] [address] [address] [place] [address] ECG 12-LEADon 12-12-2019 Atrial Rate [facility] P-R Interval [facility] Q-T Interval [facility] Q-T Interval (corrected) [facility] QRS Duration [facility] QTC Calculation (Bezet) [facility] R [facility] T [place] [facility] Ventricular Rate [facility] POC Glucoseon 12-12-2019 Glucose [Mass/Vol] 133 mg/dL [facility] Interpretation and review of laboratory results Abnormal [facility] Vital Signs Date Time Vital Sign Value Performing Clinician Marco A guevara 08-17-2025 10:33-0400 Body height 182.9 cm Deepthi Edward HYDROGEOLOGY PROFESSOR-HIGHWAY INSPECTOR Work Phone: [facility] 08-17-2025 10:33-0400 Body mass index (BMI) [Ratio] 21.29 kg/m2 Deepthi Escobedota HYDROGEOLOGY PROFESSOR-HIGHWAY INSPECTOR Work Phone: [facility] 08-17-2025 10:33-0400 Body temperature 98.6 [degF] Deepthi Escobedota HYDROGEOLOGY PROFESSOR-HIGHWAY INSPECTOR Work Phone: 8(586)[phone] [address] 08-17-2025 10:33-0400 Body weight 71.22 kg Deepthi Edward HYDROGEOLOGY PROFESSOR-HIGHWAY INSPECTOR Work Phone: [phone])[phone] [address] 08-17-2025 10:33-0400 Diastolic blood pressure 69 mm[Hg] Deepthi Edward HYDROGEOLOGY PROFESSOR-HIGHWAY INSPECTOR Work Phone: 8(945)[phone] [address] 08-17-2025 10:33-0400 Heart rate 77 /min Deepthi Escobedota HYDROGEOLOGY PROFESSOR-HIGHWAY INSPECTOR Work Phone: [phone](229)036-849286 [address] 08-17-2025 10:33-0400 Respiratory rate 18 /min Deepthi Escobedota HYDROGEOLOGY PROFESSOR-HIGHWAY INSPECTOR Work Phone: [phone])[phone] [address] 08-17-2025 10:33-0400 SaO2% (BldA) [Mass fraction] 96 % Deepthi Escobedota HYDROGEOLOGY PROFESSOR-HIGHWAY INSPECTOR Work Phone: 6([phone])105-426986 [address] 08-17-2025 10:33-0400 Systolic blood pressure 152 mm[Hg] Deepthi Escobedota HYDROGEOLOGY PROFESSOR-HIGHWAY INSPECTOR Work Phone: [facility] 04-11-2025 10:55-0400 Body height 190.[address] Jose Guadalupe MD Work Phone: [facility] 04-11-2025 10:55-0400 Body mass index (BMI) [Ratio] 19.8 kg/m2 Dr. Jose Guadalupe MD Work Phone: [facility] 04-11-2025 10:55-0400 Body weight 72.[address] Jose Guadalupe MD Work Phone: [facility] 04-11-2025 10:55-0400 Diastolic blood pressure 80 mm[Hg] Dr. Jose Guadalupe MD Work Phone: [facility] 04-11-2025 10:55-0400 Heart rate 76 /min Dr. Jose Guadalupe MD Work Phone: [facility] 04-11-2025 10:55-0400 SaO2% (BldA) [Mass fraction] 96 % Dr. Jose Guadalupe MD Work Phone: [facility] 04-11-2025 10:55-0400 Systolic blood pressure 162 mm[Hg] Dr. Jose Guadalupe MD Work Phone: [facility] 07-30-2023 19:58-0400 Body height 187.9 cm Jann Guadalupe Other Phone: [facility] 07-30-2023 19:58-0400 Body temperature 97.88 [degF] Jann Guadalupe Other Phone: [facility] 07-30-2023 19:58-0400 Diastolic blood pressure 54 mm[Hg] Jann Guadalupe Other Phone: [facility] 07-30-2023 19:58-0400 Heart rate 89 /min Jann Guadalupe Other Phone: [facility] 07-30-2023 19:58-0400 SaO2% (BldA) [Mass fraction] 97 % Jann Guadalupe Other Phone: [facility] 07-30-2023 19:58-0400 Systolic blood pressure 161 mm[Hg] Jann Guadalupe Other Phone: [facility] 02-09-2023 09:55-0400 Diastolic blood pressure 74 mm[Hg] Aleah Byrd APRN.CNP Work Phone: [facility] 02-09-2023 09:55-0400 Heart rate 73 /min Aleah Podlogar HYDROGEOLOGY PROFESSOR.HIGHWAY INSPECTOR Work Phone: [facility] 02-09-2023 09:55-0400 Systolic blood pressure 172 mm[Hg] Aleah Podlogar HYDROGEOLOGY PROFESSOR.HIGHWAY INSPECTOR Work Phone: [facility] 02-09-2023 09:39-0400 Body weight 78.11 kg Aleah Podlogar HYDROGEOLOGY PROFESSOR.HIGHWAY INSPECTOR Work Phone: [facility] 02-09-2023 09:39-0400 Respiratory rate 16 /min Aleah Podlogar HYDROGEOLOGY PROFESSOR.HIGHWAY INSPECTOR Work Phone: [facility] 02-09-2023 09:39-0400 SaO2% (BldA) [Mass fraction] 98 % Aleah Podlogar HYDROGEOLOGY PROFESSOR.HIGHWAY INSPECTOR Work Phone: [facility] 01-06-2023 10:21-0500 Diastolic blood pressure 76 mm[Hg] Aleah Podlogar HYDROGEOLOGY PROFESSOR.HIGHWAY INSPECTOR Work Phone: [facility] 01-06-2023 10:21-0500 Heart rate 84 /min Aleah Podlogar HYDROGEOLOGY PROFESSOR.HIGHWAY INSPECTOR Work Phone: [facility] 01-06-2023 10:21-0500 Systolic blood pressure 170 mm[Hg] Aleah Podlogar HYDROGEOLOGY PROFESSOR.HIGHWAY INSPECTOR Work Phone: [facility] 01-06-2023 10:00-0500 Body weight 76.39 kg Aleha Podlogar HYDROGEOLOGY PROFESSOR.HIGHWAY INSPECTOR Work Phone: [facility] 01-06-2023 10:00-0500 Respiratory rate 16 /min Aleah Podlogar HYDROGEOLOGY PROFESSOR.HIGHWAY INSPECTOR Work Phone: [facility] 01-06-2023 10:00-0500 SaO2% (BldA) [Mass fraction] 97 % Aleah Podlogar HYDROGEOLOGY PROFESSOR.HIGHWAY INSPECTOR Work Phone: [facility] 12-22-2022 11:50-0500 Diastolic blood pressure 76 mm[Hg] Jann Guadalupe MD Work Phone: [facility] 12-22-2022 11:50-0500 Systolic blood pressure 166 mm[Hg] Jann Guadalupe MD Work Phone: [facility] 12-22-2022 11:02-0500 Body weight 75.48 kg Jann Guadalupe MD Work Phone: [facility] 12-22-2022 11:02-0500 Heart rate 82 /min Jann Guadalupe MD Work Phone: [facility] 12-22-2022 11:02-0500 Respiratory rate 16 /min Jann Guadalupe MD Work Phone: [facility] 12-22-2022 11:02-0500 SaO2% (BldA) [Mass fraction] 98 % Jann Guadalupe MD Work Phone: [facility] 10-03-2022 08:37-0400 Body weight 74.3 kg Aleah Podlogar HYDROGEOLOGY PROFESSOR.HIGHWAY INSPECTOR Work Phone: [facility] 10-03-2022 08:37-0400 Diastolic blood pressure 77 mm[Hg] Aleah Podlogar HYDROGEOLOGY PROFESSOR.HIGHWAY INSPECTOR Work Phone: [facility] 10-03-2022 08:37-0400 Heart rate 78 /min Aleah Podlogar HYDROGEOLOGY PROFESSOR.HIGHWAY INSPECTOR Work Phone: [facility] 10-03-2022 08:37-0400 Respiratory rate 18 /min Aleah Podlogar HYDROGEOLOGY PROFESSOR.HIGHWAY INSPECTOR Work Phone: [facility] 10-03-2022 08:37-0400 SaO2% (BldA) [Mass fraction] 97 % Aleah Podlogar HYDROGEOLOGY PROFESSOR.HIGHWAY INSPECTOR Work Phone: [facility] 10-03-2022 08:37-0400 Systolic blood pressure 167 mm[Hg] Aleah Podlogar HYDROGEOLOGY PROFESSOR.HIGHWAY INSPECTOR Work Phone: [facility] 09-18-2022 15:10-0400 Diastolic blood pressure 82 mm[Hg] Jann Guadalupe MD Work Phone: [facility] 09-18-2022 15:10-0400 Systolic blood pressure 152 mm[Hg] Jann Guadalupe MD Work Phone: [facility] 09-18-2022 13:16-0400 Body height 184 cm Jann Guadalupe MD Work Phone: [facility] 09-18-2022 13:16-0400 Body weight 73.21 kg Jann Guadalupe MD Work Phone: [facility] 09-18-2022 13:16-0400 Heart rate 77 /min Jann Guadalupe MD Work Phone: [facility] 09-18-2022 13:16-0400 Respiratory rate 16 /min Jann Guadalupe MD Work Phone: [facility] 09-18-2022 13:16-0400 SaO2% (BldA) [Mass fraction] 98 % Jann Guadalupe MD Work Phone: [facility] 12-12-2019 11:00-0500 BP Diastolic 60 mm[Hg] [facility] 12-12-2019 11:00-0500 BP Systolic 170 mm[Hg] [facility] 12-12-2019 10:50-0500 BMI (Body Mass Index) 19.53 kg/m2 [facility] 12-12-2019 10:50-0500 Body Temperature 97.59 [degF] [facility] 12-12-2019 10:50-0500 Body weight 65.[address] [facility] 12-12-2019 10:50-[address] [facility] 12-12-2019 10:50-0500 Pulse (Heart Rate) 88 /min [facility] 12-12-2019 10:50-0500 Pulse Oximetry 96 % [facility] 12-12-2019 10:50-0500 Respiratory Rate 16 /min [facility] Encounters Encounter Date Encounter Type Care Provider Facility Start: 08-17-2025 End: 08-17-2025 Office outpatient visit 15 minutes Deepthi COREAS Work Phone: [phone] [place] [address] Urgent Care Comment on above: Acute bronchitis, un specified organism (Primary Dx) Start: 08-17-2025 End: 08-17-2025 ambulatory JANN GUADALUPE [facility] Start: 04-26-2025 End: 05-18-2025 ambulatory Jann Guadalupe MD Work Phone: [address] [place] [address] Comment on above: Diabetes Start: 04-11-2025 End: 04-11-[address] Chao Phelan MD -[facility] Work Phone: Start: 04-11-2025 End: 04-11-[address] Jose Guadalupe MD Work Phone: [facility] Work Phone: Start: 10-11-2024 End: 10-11-2024 ambulatory [facility] Facility:[facility] Start: 10-11-2024 End: 10-11-2024 ambulatory [facility] Facility:[facility] Start: 07-30-2023 End: 07-30-2023 Emergency department patient visit [facility] Start: 04-01-2023 Telephone encounter Jose Guadalupe MD Work Phone: [facility] Comment on above: Results Refill Request Start: 03-23-2023 Refill Jann Guadalupe MD Work Phone: [facility] Comment on above: Refill Request Start: 03-19-2023 Telephone encounter Jose Guadalupe MD Work Phone: [facility] Comment on above: Results Start: 02-12-2023 End: 02-12-2023 Subsequent hospital visit by physician [facility] Work Phone: Radiology Comment on above: KACY (acute kidney in jury) ([facility]) [N17.9] Start: 02-10-2023 ambulatory Jann Guadalupe MD Work Phone: [facility] Start: 02-10-2023 Patient encounter procedure Jann Guadalupe MD Work Phone: [facility] [place] Comment on above: Referral Start: 02-10-2023 Telephone encounter Jose Guadalupe MD Work Phone: [facility] [place] Comment on above: Results Start: 02-09-2023 End: 02-09-2023 Patient encounter procedure Aleah Podlogar HYDROGEOLOGY PROFESSOR.HIGHWAY INSPECTOR Work Phone: [facility] [place] Comment on above: Essential hypertensi on (Primary Dx); KACY (acute kidney injury) (HCC) Start: 01-30-2023 ambulatory Jann Guadalupe MD Work Phone: [facility] [place] 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 Start: 01-07-2023 ambulatory Seema HUGHES-C Work Phone: Pulmonary Medicine Start: 01-06-2023 ambulatory Aleah Podlogar HYDROGEOLOGY PROFESSOR.HIGHWAY INSPECTOR Work Phone: [facility] [place] 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 Start: 01-06-2023 End: 01-06-2023 Patient encounter procedure Aleah Podlogar HYDROGEOLOGY PROFESSOR.HIGHWAY INSPECTOR Work Phone: [facility] [place] Comment on above: Essential hypertensi on (Primary Dx); 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, macular edema presence unspecified, unspecified retinopathy severity (HCC) Start: 12-25-2022 ambulatory Jann Guadalupe MD Work Phone: [facility] [place] Comment on above: Akira freeyle 2 Start: 12-24-2022 Refill Jann Guadalupe MD Work Phone: [facility] [place] Comment on above: Refill Request Start: 12-23-2022 Telephone encounter Jose Guadalupe MD Work Phone: [facility] [place] Comment on above: Results Start: 12-22-2022 End: 12-22-2022 Patient encounter procedure Jann Guadalupe MD Work Phone: [facility] [place] Comment on above: Type 1 diabetes leodan itus with retinopathy of right eye, macular edema presence unspecified, unspecified retinopathy severity (HCC) (Primary Dx); Diabetic retinopathy of right eye associated with type 1 diabetes mellitus, macular edema presence unspecified, unspecified retinopathy severity (HCC); Essential hypertension; Hypothyroidism, unspecified type; Mixed hyperlipidemia; History of tobacco use Start: 12-02-2022 ambulatory Aleah Podlogar HYDROGEOLOGY PROFESSOR.HIGHWAY INSPECTOR Work Phone: [facility] [place] Comment on above: blood presure Start: 11-08-2022 ambulatory Aleah Podlogar HYDROGEOLOGY PROFESSOR.HIGHWAY INSPECTOR Work Phone: [facility] [place] Comment on above: medication Start: 10-03-2022 End: 10-03-2022 Patient encounter procedure Aleah Podlogar HYDROGEOLOGY PROFESSOR.HIGHWAY INSPECTOR Work Phone: [facility] [place] Comment on above: Essential hypertensi on (Primary Dx) Start: 09-23-2022 Telephone encounter Jose Guadalupe MD Work Phone: [facility] [place] Comment on above: Results Start: 09-18-2022 End: 09-18-2022 Patient encounter procedure Jann Guadalupe MD Work Phone: [facility] [place] Comment on above: Annual physical exam (Primary Dx); 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, macular edema presence unspecified, unspecified retinopathy severity (HCC); Diabetic polyneuropathy associated with type 1 diabetes mellitus (HCC); Essential hypertension; Hypothyroidism, unspecified type; Screening for prostate cancer; History of tobacco use Start: 09-27-2021 End: 09-27-2021 Telephone encounter Fadumo Franks MD Work Phone: [facility] Start: 02-01-2021 End: 02-01-2021 Orders Only Maeve Chester Work Phone: [facility] Start: 12-12-2019 End: 12-12-2019 Patient encounter procedure DARIEL ALATORRE [facility] Start: 12-12-2019 End: 12-12-2019 Office consultation new/estab patient 40 min Dariel Alatorre Work Phone: [facility] Comment on above: Pre-op evaluation (P rimary Dx); Vitreous hemorrhage, right eye (HCC); Controlled type 1 diabetes mellitus with other ophthalmic complication (HCC); Hypothyroidism (acquired); Essential hypertension; Cigarette nicotine dependence with nicotine-induced disorder Procedures Date Procedure Procedure Detail Performing Clinician Start: 02-12-2023 Us retroperitoneal r eal time w/image complete Jann Guadalupe MD Work Phone: Start: 12-12-2019 12 lead ECG Dariel krause Landry Work Phone: Start: 12-12-2019 Glucose [Mass/volume ] in Blood Dariel Arenas Landry Work Phone: Plan of Treatment Date Care Activity Detail Author Start: 2037 RSV High Risk: (Elde rly (60+) or Population) (1 - 1-dose 75+ series) RSV High Risk: (Elderly (60+) or Population) (1 - 1-dose 75+ series) [facility] Start: 04-12-2029 Prostate specific antigen measurement Prostate Cancer Screening Discussion [facility] Start: 09-18-2027 PROSTATE CANCER SCREENING DISCUSSION PROSTATE CANCER SCREENING DISCUSSION [facility] Start: 07-31-2025 Influenza vaccination [facility] Start: 04-12-2025 Hepatitis B screening Urine Albumin:Creatinine Ratio [facility] Start: 04-12-2025 Hepatitis B surface antibody level LDL Cholesterol [facility] Start: 07-31-2024 Covid-19 Vaccine ( season) Covid-19 Vaccine () [facility] Start: 02-10-2024 ANNUAL PCP TEAM CNC SERVICE ENGINEER RENU DISEASE VISIT ANNUAL PCP TEAM CHRONIC DISEASE VISIT [facility] Start: 01-06-2024 ANNUAL PCP TEAM CNC SERVICE ENGINEER RENU DISEASE VISIT ANNUAL PCP TEAM CHRONIC DISEASE VISIT [facility] Start: 12-22-2023 ANNUAL PCP TEAM CNC SERVICE ENGINEER RENU DISEASE VISIT ANNUAL PCP TEAM CHRONIC DISEASE VISIT [facility] Start: 12-22-2023 Hepatitis B surface antibody level LDL CHOLESTEROL [facility] Start: 10-03-2023 ANNUAL PCP TEAM CNC SERVICE ENGINEER RENU DISEASE VISIT ANNUAL PCP TEAM CHRONIC DISEASE VISIT [facility] Start: 09-18-2023 3 comp foot exam completed DIABETIC FOOT EXAM [facility] Start: 09-18-2023 ANNUAL PCP TEAM CNC SERVICE ENGINEER RENU DISEASE VISIT ANNUAL PCP TEAM CHRONIC DISEASE VISIT [facility] Start: 09-18-2023 COLORECTAL CANCER SCREENING COLORECTAL CANCER SCREENING [facility] Comment on above: Postponed from 07/16 (Declined at this time) Start: 09-18-2023 Diabetic foot examination Diabetic Foot Exam [facility] Start: 09-18-2023 Hepatitis B screening URINE ALBUMIN:CREATININE RATIO [facility] Start: 09-18-2023 Hepatitis B surface antibody level LDL CHOLESTEROL [facility] Start: 09-18-2023 Influenza vaccination LUNG CANCER SC REENING [facility] Comment on above: Postponed from 07/16 (Declined at this time) Start: 09-18-2023 SHINGRIX VACCINE (1 of 2) SHINGRIX VACCINE (1 of 2) [facility] Comment on above: Postponed from 07/16 (Declined at this time) Start: 09-18-2023 Urine microalbumin profile DTAP,TDAP,TD (1 - Tdap) [facility] Comment on above: Postponed from 07/16 (Declined at this time) Start: 07-31-2023 Covid-19 Vaccine (2022- season) Covid-19 Vaccine ( season) [facility] Start: 06-21-2023 Hemoglobin A1c measurement HbA1C [facility] Start: 06-21-2023 Hemoglobin A1c/Hemoglobin.total in Blood HBA1C [facility] Start: 03-19-2023 End: 05-19-2023 Osmolality of Serum or Plasma OSMOLALITY BLD Lab Routine Hyponatremia Expected: 03/19/2023, Expires: 05/19/2023 [facility] Work Phone: Comment on above: Expected: 03/19/2023 , Expires: 05/19/2023 Start: 03-19-2023 End: 05-19-2023 Osmolality of Urine OSMOLALITY URINE Lab Routine Hyponatremia Expected: 03/19/2023, Expires: 05/19/2023 [facility] Work Phone: Comment on above: Expected: 03/19/2023 , Expires: 05/19/2023 Start: 03-19-2023 End: 05-19-2023 Sodium [Moles/volume] in Urine collected for unspecified duration SODIUM RANDOM URINE Lab Routine Hyponatremia Expected: 03/19/2023, Expires: 05/19/2023 [facility] Work Phone: Comment on above: Expected: 03/19/2023 , Expires: 05/19/2023 Start: 02-24-2023 End: 04-26-2023 Comprehensive metabolic 2000 panel - Serum or Plasma COMP METABOLIC PANEL Lab Routine Essential hypertension Expected: 02/24/2023, Expires: 04/26/2023 [facility] Work Phone: Comment on above: Expected: 02/24/2023 , Expires: 04/26/2023 Start: 12-23-2022 End: 02-22-2023 Basic metabolic 2000 panel - Serum or Plasma BASIC METABOLIC PNL Lab Routine Hyponatremia Expected: 12/23/2022, Expires: 02/22/2023 [facility] Work Phone: Comment on above: Expected: 12/23/2022 , Expires: 02/22/2023 Start: 12-23-2022 End: 02-22-2023 Urinalysis complete panel - Urine URINALYSIS, WITH MICROSCOPIC Lab Routine KACY (acute kidney injury) (HCC) Expected: 12/23/2022, Expires: 02/22/2023 [facility] Work Phone: Comment on above: Expected: 12/23/2022 , Expires: 02/22/2023 Start: 12-22-2022 End: 02-21-2023 Comprehensive metabolic 2000 panel - Serum or Plasma [facility] Work Phone: Comment on above: Expected: 12/22/2022 , Expires: 02/21/2023 Start: 12-22-2022 End: 02-21-2023 Hemoglobin A1c in Blood [facility] Work Phone: Comment on above: Expected: 12/22/2022 , Expires: 02/21/2023 Start: 12-22-2022 End: 02-21-2023 LIPID PANEL, NONFASTING [facility] Work Phone: Comment on above: Expected: 12/22/2022 , Expires: 02/21/2023 Start: 12-22-2022 End: 02-21-2023 Thyrotropin [Units/volume] in Serum or Plasma [facility] Work Phone: Comment on above: Expected: 12/22/2022 , Expires: 02/21/2023 Start: 12-19-2022 Hemoglobin A1c/Hemoglobin.total in Blood HBA1C [facility] Start: 11-30-2022 DEPRESSION ASSESSMENT DEPRESSION ASS ESSMENT [facility] Start: 09-23-2022 End: 11-23-2022 Thyrotropin [Units/volume] in Serum or Plasma TSH BLD Lab Routine Hypothyroidism, unspecified type Expected: 09/23/2022, Expires: 11/23/2022 [facility] Work Phone: Comment on above: Expected: 09/23/2022 , Expires: 11/23/2022 Start: 08-18-2022 Screening for malign ant neoplasm of colon [facility] Start: 2022 Hepatitis B Vaccine (1 of 3 - Risk 3-dose series) Hepatitis B Vaccine (1 of 3 - Risk 3-dose series) [facility] Start: 2022 RSV Vaccine (1 - 1-d ose 60+ series) RSV Vaccine (1 - 1-dose 60+ series) [facility] Start: 2022 RSV Vaccine (1 - Ris k 60-74 years 1-dose series) RSV Vaccine (1 - Risk 60-74 years 1-dose series) [facility] Start: 07-31-2021 Influenza vaccination Influenza Vacc ine (#1) [facility] Start: 07-31-2020 Influenza vaccinatio n given Sequential Influenza Vaccine (#1) [facility] Start: 04-29-2020 Depression Screening Depression Scre ening [facility] Start: 04-29-2020 Hepatitis C screening Hepatitis C Sc reening [facility] Start: 04-29-2020 HIV screening HIV Screening [facility] Start: 04-29-2020 Lipid panel Cholesterol Sc reening (Lipid Panel) [facility] Start: 04-29-2020 Screening for malign ant neoplasm of colon Colorectal Cancer Screening: Colonoscopy [facility] Start: 04-29-2020 Social Influencers o f Health Screening Social Influencers of Health Screening [facility] Start: 07-31-2019 Influenza vaccinatio n given SEQUENTIAL INFLUENZA VACCINE (#1) [facility] Start: 2012 Administration of he rpes zoster vaccine Zoster Vaccines (1 of 2) [facility] Start: 2012 Influenza vaccination Lung Cancer Sc reening [facility] Start: 2012 Pneumococcal vaccination Pneum ococcal Vaccine (1 of 1 - PCV) [facility] Start: 2012 Prostate specific antigen measurement PSA Prostate Cancer Screening [facility] Start: 2012 Screening for malign ant neoplasm of colon [facility] Start: 2012 Shingrix Vaccine (1 of 2) Shingrix Vaccine (1 of 2) [facility] Start: 2012 Zoster Vaccines (1 of 2) Zoste r Vaccines (1 of 2) [facility] Start: 2007 COLOGUARD (FIT-DNA) COLOGUARD (FIT-D NA) [facility] Start: 2007 Colonoscopy COLONOSCOPY [facility] Start: 2007 Colorectal Cancer Screening Colorectal Cancer Screening [facility] Start: [address] COLONOGRAPHY [facility] Start: 2007 FECAL OCCULT BLOOD FECAL OCCULT BLOO D [facility] Start: 2007 Screening for malign ant neoplasm of colon [facility] Start: 2007 SIGMOIDOSCOPY SIGMOIDOSCOPY [facility] Start: 1984 DTaP/Tdap/Td Vaccine s (1 - Tdap) DTaP/Tdap/Td Vaccines (1 - Tdap) [facility] Start: 1981 DTaP,Tdap,and Td Vaccines (1 - Tdap) DTaP,Tdap,and Td Vaccines (1 - Tdap) [facility] Start: 1981 Pneumococcal Vaccine : 50+ (1 of 2 - PCV) Pneumococcal Vaccine: 50+ (1 of 2 - PCV) [facility] Start: 1981 Urine microalbumin profile DTaP,Tdap,Td Vaccine (1 - Tdap) [facility] Start: 1980 Anxiety Screening Anxiety Screening [facility] Start: 1980 BP CONTROLLED (<130/80) BP CONTROLLE D (<130/80) [facility] Start: 1980 Depression Screening Depression Scre ening [facility] Start: 1980 Hepatitis C antibody , confirmatory test Hepatitis C Screening [facility] Start: 1980 HEPATITIS C SCREENING HEPATITIS C [facility] Start: 1980 Hepatitis C screening Hepatitis C [facility] Start: 1980 HIV SCREENING HIV SCREENING [facility] Start: 1980 HIV screening HIV Screening [facility] Start: 1978 COVID-19 Vaccine (1 of 2) COVID-19 Vaccine (1 of 2) [facility] Start: 1977 HIV screening HIV Screening [facility] Start: 1974 Adolescent depressio n screening assessment Depression Screening (PHQ9) [facility] Start: 1974 COVID-19 Vaccine (1) COVID-19 Vaccin e (1) [facility] Start: 1972 Albumin DL <= 20 mg/ L (U) [Mass/Vol] Urine Microalbumin [facility] Start: 1972 Diabetic foot examination Foot Exam [facility] Start: 1972 Glaucoma screening Dilated Retinal E xam [facility] Start: 1972 Hepatitis C antibody , confirmatory test DILATED RETINAL EXAM [facility] Start: 1972 Ophthalmic examinati on and evaluation Ophthalmology Exam [facility] Start: 1968 PNEUMOCOCCAL (1 - PCV) PNEUMOCOCCAL (1 - PCV) [facility] Start: 1968 Pneumococcal vaccination Pneum ococcal Vaccine (1 - PCV) [facility] Start: 1965 History and physical examination, annual for health maintenance Wellness Visit [facility] Start: 1963 MMR Vaccines (1 of 1 - Standard series) MMR Vaccines (1 of 1 - Standard series) [facility] Start: 1962 Depression screening using PHQ-9 (Patient Health Questionnaire 9) score DEPRESSION SCREENING (PHQ9) [facility] Start: 1962 HbA1c (Bld) [Mass fraction] A1C [facility] Start: 1962 Hepatitis C antibody , confirmatory test HEPATITIS C SCREENING [facility] Start: 1962 HIV screening HIV Screening [facility] Start: 1962 Lipid panel Lipid Panel [facility] Start: 1962 Prostate specific antigen measurement PSA Level [facility] Start: 1962 Screening for malign ant neoplasm of colon [facility] Start: 1962 [facility]anus [facility] Start: 1962 Thyroid stimulating hormone measurement TSH Level [facility] Start: 1962 Yearly Adult Physical Yearly Adult P hysical [facility] Urinalysis complete panel - Urine URINALYSIS, WITH MICROSCOPIC Lab Routine KACY (acute kidney injury) (HCC) 02/09/2023 10:18 AM EDT [facility] Work Phone: End: 01-22-2024 US KIDNEY/BLADDER US KIDNEY/BLADDER Radiology Routine KACY (acute kidney injury) (HCC) 1 Occurrences starting 12/23/2022 until 01/22/2024 [facility] Work Phone: Comment on above: 1 Occurrences starti ng 12/23/2022 until 01/22/2024 [facility] Immunizations Immunization Date Immunization Notes Care Provider Cristel green 08-31-2024 influenza virus vaccine, unspecified formulation Deepthi Chavez HYDROGEOLOGY PROFESSOR-HIGHWAY INSPECTOR Work Phone: [facility] Work Phone: 09-06-2023 influenza, injectabl e, quadrivalent, preservative free Jann Guadalupe MD Work Phone: [facility] 09-06-2023 influenza virus vaccine, unspecified formulation Jann Guadalupe MD Work Phone: [facility] 09-05-2022 COVID-19 booster vaccine, age 12+ yr, bivalent (MODERNA) Jann Guadalupe MD Work Phone: [facility] 09-05-2022 influenza, injectabl e, quadrivalent, contains preservative Jann Guadalupe MD Work Phone: [facility] Payers Date Payer Category Payer Self-pay 2022 [facility] LILIBETH HORN FEP PPO [id number] 2022 Unknown [id number] 2022 [employer] ANTHEM HMP [id number] 2008 Unknown ANTHEM ANTHEM ED [facility] xxxxxxxxx 2008-Present xxxxxxxxx [id number] 2008 Unknown [id number] 2008 Unknown [id number] 1962 Unknown [id number] 1962 Unknown [id number] Unknown [id number] Unknown [id number] Unknown [id number] Social History Date Type Detail Facility Start: 12-12-[address] [facility] Current every day smoker [facility] Start: 1960 Sex Assigned At Not on file [facility] Start: 12-12-2019 End: 08-17-2025 Tobacco use and exposure Never used [facility] Tobacco smoking stat [facility] Unknown if ever smoked [employer] Start: 09-18-[address] [facility] Ex-smoker [facility] Work Phone: Start: 10-07-1981 End: 10-07-2021 History of tobacco use Current smoker [facility] Work Phone: Start: 10-07-1981 End: 10-07-2021 History of tobacco use Cigarette Smoker [facility] Work Phone: Start: 09-18-2022 End: 08-17-2025 Cigarettes smoked current (pack per day) - Reported 1 [facility] Work Phone: Start: 09-18-2022 End: 08-17-2025 Alcohol intake Current drinker of alcohol (finding) [facility] Start: 09-08-2022 End: 09-18-2022 Exposure to SARS-CoV-2 (event) Not sure [facility] Start: 02-09-2023 End: 08-17-2025 Tobacco use panel [facility] Work Phone: Start: 07-30-2023 Adult Depression Screening Assessment 0 [facility] Work Phone: Start: 1960 Sex Assigned At Male [facility] Start: 08-17-[address] [facility] Never smoked tobacco [facility] Work Phone: Clinical Notes 09-27-2021 to 08-17-2025 Deepthi Chavez APRN-ELAINE - 08/17/2025 9:25 AM Phyllis Pink - 04/26/2025 1:52 PM EDTTelephone Encounter - Virginia Gomez RN - 04/02/2023 9:37 AM EDTPatient Instructions Note Date & Type Note Facility 08-17-2025 History of Presen t illness Narrative [facility] Deepthi Chavez APRN-HIGHWAY INSPECTOR Visit Note - 08/18/2025 11:05 AM This note was generated with voice recognition software and may contain errors including spelling, grammar, syntax, and misrecognization of what was dictated. Patient: Doug Novoa, , 65 y.o., male PCP: Jann Guadalupe MD ----- ALLERGIES: Allergies[1] CURRENT MEDICATIONS: Current Outpatient Medications Medication Instructions albuterol 90 mcg/actuation inhaler 1-2 puffs, inhalation, Every 4 hours PRN amLODIPine (Norvasc) 10 mg tablet 1 tablet, Daily (629) azithromycin (Zithromax Z-Lenin) 250 mg tablet Take 2 tablets by mouth at once on day 1, then 1 tablet once a day on days 2-5. Take with a meal. Basaglar KwikPen U-100 Insulin 100 unit/mL (3 mL) pen 18 unit (0.18 mL) subcutaneously daily = each pen good for 28 days once opened Farxiga 10 mg tablet 1 tablet, Daily (629) insulin aspart (NovoLOG) 100 unit/mL (3 mL) pen INJECT 20 UNITS SUBCUTANEOUSLY (UNDER THE SKIN) THREE TIMES DAILY levothyroxine (Synthroid, Levoxyl) 125 mcg tablet losartan (Cozaar) 100 mg tablet 1 tablet, Daily (629) ----- PAST MEDICAL HX: Problem List[2] SURGICAL HX: Surgical History[3] FAMILY HX: No pertinent history. SOCIAL HX: reports that he has never smoked. He has never used smokeless tobacco. . ----- CHIEF COMPLAINT: Chief Complaint Patient presents with Flu Symptoms Chest congestion, cough, fevers, body aches X 4 days HISTORY OF PRESENT ILLNESS: The history was obtained from patient. Doug is a 65 y.o. male, who presents with a chief complaint of a productive cough/chest congestion (thick, green phlegm), body aches, subjective fevers, nasal congestion (clear mucus), and post-tussive nausea - sxs stsarted on Thursday. Denies any chills, sore throat, ear pain, abdominal pain, chest pain, wheezing/shortness of breath, rashes, urinary symptoms, vomiting, and diarrhea. Reports he is always slightly dizzy at baseline (reports is due to his chronic neck issues and PCP is aware/monitoring) but this is unchanged in frequency or severity. Denies any changes in mental status. No swelling in legs. Appetite is normal; is able to eat and drink fluids without difficulty; denies loss of sense of taste or smell. Reports symptoms have improved slightly since onset, but he is concerned about the chest congestion, as he has history of pneumonia and collapsed L lung. Has been taking Mucinex without much relief; no other [id number]-[id number] medications or home remedies for symptom management. He was around someone a few days ago who had cold symptoms; no other known ill contacts. Is a former smoker. No known history of asthma/COPD. Is a type 1 diabetic - reports glucose this AM was 130. Has history of CKD - most recent GFR was 36. Denies any recent antibiotic use. REVIEW OF SYSTEMS: 10 systems reviewed negative with exception of history of present illness as listed above. TODAY'S VITALS: BP 152/69 Pulse 77 Temp 37 C (98.6 F) (Temporal) Resp 18 Ht 1.829 m (6') Wt 71.2 kg (157 lb) SpO2 96% BMI 21.29 kg/m PHYSICAL EXAMINATION: General: Mildly ill-appearing, well nourished male; alert and oriented; in no acute distress. Sitting comfortably on exam chair. Non-dyspneic. Eyes: Pupils equal, round and reactive to light. No conjunctival erythema; no scleral icterus. HENT: No frontal or maxillary sinus tenderness; + audible nasal congestion. Airway patent, TMs and ear canals clear/unremarkable bilaterally. Nasal mucosa mildly injected and edematous. Oral mucosa moist. Posterior pharynx mildly injected but without lesions or oropharyngeal exudate. Uvula is midline. Managing oral secretions without difficulty. Neck: Supple. Mildly tender, mobile anterior cervical lymphadenopathy bilat. Trachea is midline. Respiratory: Respirations easy and unlabored, Breath sounds equal. Lungs with few scattered rhonchi but no wheezing or rales; breath sounds slightly diminished at bases (R>L) + semi-productive cough noted. Non-dyspneic with ambulation; able to maintain SpO2. Cardiovascular: Normal rate, Regular rhythm. Normal S1S2. No m/r/g. No peripheral edema. Gastrointestinal: Soft, non-tender, non-distended; no palpable masses or organomegaly. Bowel sounds normoactive. Musculoskeletal: Grossly normal; appropriate for age. Integumentary: [place], warm, dry, and intact. No rashes or skin discoloration appreciated. Good skin turgor. Neurologic: Alert and oriented, no gross deficits. Cognition and Speech: Oriented, Speech clear and coherent. Psychiatric: Cooperative, Appropriate mood & affect. ----- Medical Decision Making LABORATORY or RADIOLOGICAL IMAGING ORDERS/RESULTS: None IMPRESSION/PLAN: Course: Worsening; stable 1. Acute bronchitis, unspecified organism (Primary) - albuterol 90 mcg/actuation inhaler; Inhale 1-2 puffs every 4 hours if needed for wheezing or shortness of breath. Dispense: 8.5 g; Refill: 0 - azithromycin (Zithromax Z-Lenin) 250 mg tablet; Take 2 tablets by mouth at once on day 1, then 1 tablet once a day on days 2-5. Take with a meal. Dispense: 6 tablet; Refill: 0 No red flags on exam today. Symptoms consistent with acute bronchitis with associated symptoms, but reviewed other potential etiologies. Patient declines testing for COVID/influenza/RSV. Rx for "watch and wait" antibiotic (Zithromax) provided, with instructions to begin only if symptoms not improving over the next few days. In the meantime, will start albuterol inhaler for PRN use. He declines rx for cough suppressant. Encouraged conservative measures- instructed to push fluids, rest, and to use appropriate over the counter medications as needed for management of symptoms - encouraged to continue plain Mucinex to help thin secretions. Reviewed red flags to monitor for, counseled on potential adverse reactions of treatments, expectations for improvement in sxs, and advised to follow-up with primary care provider in 3-5 days if symptoms persist, or to seek care sooner if worsening or if any additional concerns/red flags develop. Should also continue close monitoring of glucose, especially while ill. Patient agreed with plan of care; questions were encouraged and answered. LYUDMILA Wiggins Advanced Practice Provider [facility] [1] Allergies Allergen Reactions Iodinated Contrast Media Itching [2] There is no problem list on file for this patient. [3] History reviewed. No pertinent surgical history. documented in this encounter [facility] Work Phone: 04-26-2025 Note HNO ID: [id number] Author: ?, ?, ? Service: ? Author Type: ? Type: Progress Notes Filed: 05/18/2025 13:13 Note Text: Diabetes Outreach Anum Novoa has been identified for clinical review due to having diabetes without a Hemoglobin A1c in the past 1 year. PSS Team - Please contact the patient with the following script: "No primary care provider on file. has identified that you are in need of ongoing care of your diabetes and have not had blood work for your diabetes (hemoglobin A1c) in the past year. We would like to assist you in making an appointment to ensure that we control your diabetes and keep you as healthy as possible." Outreach Outcome/Action: Spoke to patient / parent / legal guardian: PCP confirmed / updated Note - if they see another provider, please update their chart. [facility] 04-26-2025 History of Presen t illness Narrative Diabetes Outreach Anum Novoa has been identified for clinical review due to having diabetes without a Hemoglobin A1c in the past 1 year. PSS Team - Please contact the patient with the following script: "No primary care provider on file. has identified that you are in need of ongoing care of your diabetes and have not had blood work for your diabetes (hemoglobin A1c) in the past year. We would like to assist you in making an appointment to ensure that we control your diabetes and keep you as healthy as possible." Outreach Outcome/Action: Spoke to patient / parent / legal guardian: PCP confirmed / updated Note - if they see another provider, please update their chart. documented in this encounter [facility] 04-26-2025 Note Patient Outreach (4C Q) ANUM NOVOA ([id number]) 1960 M Date Time Provider Department 04/26/25 JANN GUADALUPE 4CQ During your visit today, we recorded the following information about you: Phyllis Burgos 05/18/2025 1:13 PM Signed Diabetes Outreach Anum Novoa has been identified for clinical review due to having diabetes without a Hemoglobin A1c in the past 1 year. PSS Team - Please contact the patient with the following script: "No primary care provider on file. has identified that you are in need of ongoing care of your diabetes and have not had blood work for your diabetes (hemoglobin A1c) in the past year. We would like to assist you in making an appointment to ensure that we control your diabetes and keep you as healthy as possible." Outreach Outcome/Action: Spoke to patient / parent / legal guardian: PCP confirmed / updated Note - if they see another provider, please update their chart. Allergies As of Date: 04/26/2025 Noted Allergy Reaction CAT DANDER 09/18/2022 14 - Other: See Comments Comments: Itchy eyes, sneezing IODINATED CONTRAST MEDIA 09/18/2022 9 - Itching Date Reviewed: 01/06/2023 Reviewed by: Tamra Martinez LPN - Fully Assessed Reason for Visit: Diabetes [34] Prescriptions as of 05/18/2025 - losartan (COZAAR) 100 mg tablet Take 1 tablet by mouth once daily. - levothyroxine (SYNTHROID) 125 mcg tablet Take 1 tablet by mouth daily before breakfast. - rosuvastatin (CRESTOR) 10 mg tablet Take 1 tablet by mouth daily at bedtime. - metoprolol succinate ER (TOPROL XL) 25 mg 24 hr tablet Take 1 tablet by mouth once daily. - amLODIPine (NORVASC) 10 mg tablet Take 1 tablet by mouth once daily. - insulin aspart U-100 (NOVOLOG FLEXPEN U-100 INSULIN) 100 unit/mL (3 mL) Inject 5 Units subcutaneously three times daily before meals. Plus sliding scale - insulin glargine (BASAGLAR KWIKPEN U-100 INSULIN) 100 unit/mL (3 mL) Inject 16 Units subcutaneously every morning. Patient reports taking 15-20 units every morning due to experiencing low BS - flash glucose scanning reader (Arimaz AKIRA 2 READER) Use 4 times daily to monitor sugars. Problem List As Of Date 04/26/2025 Noted Resolved Essential hypertension [I10] 09/18/2022 Diabetic retinopathy (HCC) [E11.319] 09/18/2022 History of tobacco use [Z87.891] 09/18/2022 Hypothyroidism [E03.9] 09/18/2022 Multiple rib fractures [S22.49XA] 09/18/2022 Diabetic neuropathy (HCC) [E11.40] 09/18/2022 Mixed hyperlipidemia [E78.2] 12/22/2022 Encounter Status:Closed by PHYLLIS BURGOS on 05/18/25 [facility] 04-02-2023 Miscellaneous Notes Shannon with [facility] called and asked to have last 3 months of labs faxed over. Faxed to # [phone]. Reviewed. Patient calls and notified of results and providers instructions. Patient verbalizes understanding. Patient will call back after appointment with Dr. Chao Phelan endocrinology to pursue referral if desired at that time. Swetha Beltre RN Urine sodium above 40 with urine osmolality above 300, this may indicate SIADH as cause for his low sodium. Would recommend referral to nephrology for further evaluation. Can fax lab results to office when patient schedules appointment. Recommend restricting fluids to 2 L per day to help prevent sodium from dropping lower. documented in this encounter [facility] 04-02-2023 Miscellaneous Notes Patient phones requesting refills as follows: Patient comment: Needs called in again. Couldn't be filled due to being to soon Requested Prescriptions Pending Prescriptions Disp Refills losartan (COZAAR) 100 mg tablet 90 tablet 1 Sig: Take 1 tablet by mouth once daily. Please review and advise. Rubina Baez LPN documented in this encounter [facility] 03-24-2023 Miscellaneous Notes Spoke with pt and information listed below given. Pt verbalizes understanding. Colleen Moses LPN TC to pt. LM to call office, ask for triage nurse to get results. Rubina Baez LPN Patient's repeat labs shows improved GFR to 60 with mildly elevated creatinine. He is not in CKD stage III range on this test, but is borderline with GFR <60 being in that range. Continue to eat low sodium diet <2000 mg per day and avoid NSAIDs. Tight control of DM would help with this as well. His sodium level continues to be low at 132. He is not on a diuretic that would cause this low sodium and his sugar level is not high enough to account for this. Recommend additional testing with blood and urine to look for underlying cause. documented in this encounter [facility] 03-23-2023 Miscellaneous Notes Patient has been identified by name and date of : Yes Requested Prescriptions Pending Prescriptions Disp Refills losartan (COZAAR) 100 mg tablet 90 tablet 1 Sig: Take 1 tablet by mouth once daily. levothyroxine (SYNTHROID) 125 mcg tablet 90 tablet 1 Sig: Take 1 tablet by mouth daily before breakfast. RX INSTRUCTIONS: Patient aware RX will be sent to pharmacy. No need to notify patient. Patient last office visit: 02/09/23 Patient next office visit: 05/01/23 Letty Mojica MA documented in this encounter [facility] 02-12-2023 History of Presen t illness Narrative Radiology Service Progress Note PATIENT NAME: Anum Novoa DATE OF SERVICE: February 12, 2023 TIME: 10:27 AM PATIENT IDENTITY VERIFICATION COMPLETED USING TWO (2) IDENTIFIERS: Name and Date of confirmed by patient verbally. FALL SCREENING: Has the patient had 2 falls in the last year or 1 fall with injury or currently using an Ambulatory Assistive Device (Walker, Cane, Wheelchair, Crutches, etc.)? No PATIENT GENDER DATA: Male PATIENT RELEVANT IMPLANT DATA REVIEWED: Not Applicable RADIOLOGY DEPARTMENT: Ultrasound PERIPHERAL IV DATA: Not applicable SIGNED BY: Camille Cortez RDMS RVT February 12, 2023 10:27 AM documented in this encounter [facility] 02-10-2023 Miscellaneous Notes Phoned patient and given provider's message below with verbalized understanding. Patient agreeable. Patient reports he did have 3 beers the night before he did labs and did not give it any thought, but he will in the future. Reports he is having an US kidneys done on . Patient will call Dr. Hirsch office and schedule an appt. Patient aware his UA was normal. Stable kidney dysfunction in CKD stage III range and low sodium. Patient's HCTZ was discontinued yesterday, so this may improve kidney function and sodium level. Will recheck labs in 3-4 weeks. F/u with Dr. Phelan for Type I DM with sugar in the 160's on this check. Continue current regimen. documented in this encounter [facility] 02-09-2023 Instructions Aleah Byrd APRN.ELAINE - 02/09/2023 10:10 AM EDT Take BP at home daily and update me two weeks with readings documented in this encounter [facility] 02-09-2023 History of Presen t illness Narrative 02/09/2023 Patient presents with: Blood Pressure: Follow up SUBJECTIVE: This is a 62 year old that is here today for Above Complaints. BP continued to e elevated at last appointment. Started HCTZ. Majority of home readings - 140's-150/60-70's. Taking and tolerating medications without side effects. Denies visual changes, headaches, dizziness, lightheadedness, SOB, chest pain, slurred speech, extremity numbness, tingling or weakness PAST MEDICAL HISTORY Diagnosis Date Diabetes mellitus type I (HCC) diagnosed age 28 Diabetic neuropathy (HCC) Diabetic retinopathy (HCC) Dr. Nolasco, Dr. Canas Essential hypertension History of tobacco use Hypothyroidism after radiation treatment for hyperthyroidism Mixed hyperlipidemia Multiple rib fractures 05/2020 Pneumothorax on left 05/2020 after fall from ladder Vitreous hemorrhage (HCC) ALLERGIES Cat Dander and Iodinated Contrast Media MEDICATIONS Current Outpatient Medications Medication Sig hydroCHLOROthiazide (HYDRODIURIL, ESIDRIX) 25 mg tablet Take 1 tablet by mouth once daily. atorvastatin (LIPITOR) 20 mg tablet Take 1 tablet by mouth daily at bedtime. For cholesterol. amLODIPine (NORVASC) 10 mg tablet Take 1 tablet by mouth once daily. insulin aspart U-100 (NOVOLOG FLEXPEN U-100 INSULIN) 100 unit/mL (3 mL) Inject 5 Units subcutaneously three times daily before meals. Plus sliding scale insulin glargine (BASAGLAR KWIKPEN U-100 INSULIN) 100 unit/mL (3 mL) Inject 16 Units subcutaneously every morning. Patient reports taking 15-20 units every morning due to experiencing low BS levothyroxine (SYNTHROID) 125 mcg tablet Take 1 tablet by mouth daily before breakfast. losartan (COZAAR) 100 mg tablet Take 1 tablet by mouth once daily. Blood-Glucose Sensor (FREESTYLE AKIRA 3 SENSOR) marleni 1 Device every 2 weeks. flash glucose scanning reader (FREESTYLE AKIRA 2 READER) Use 4 times daily to monitor sugars. flash glucose sensor (FREESTYLE AKIRA 2 SENSOR) kit 1 Each every 2 weeks. No current facility-administered medications for this visit. Medications and allergies reviewed by this provider. SOCIAL HISTORY Social History Tobacco Use Smoking status: Former Packs/day: 1.00 Years: 40.00 Pack years: 40.00 Types: Cigarettes Quit date: 10/07/2021 Years since quittin.3 Smokeless tobacco: Never Substance Use Topics Alcohol use: Yes Alcohol/week: 12.0 standard drinks Types: 12 Cans of beer per week Drug use: Not Currently Types: Marijuana, Amphetamines Comment: High school REVIEW OF SYSTEMS All other reviewed and negative other than HPI. OBJECTIVE: BP 160/76 Pulse 82 Resp 16 Wt 78.1 kg (172 lb 3.2 oz) SpO2 98% BMI 23.07 kg/m . Vital signs reviewed by this provider. APPEARANCE Well appearing, alert, in no acute distress, well-hydrated, well nourished. PNEUMOCOCCAL(1 - PCV) Never done DILATED RETINAL EXAM Never done HEPATITIS C SCREENING Never done HIV SCREENING Never done BP CONTROLLED (<130/80) Never done DEPRESSION ASSESSMENT due on 11/30/2022 DTAP,TDAP,TD(1 - Tdap) due on 09/18/2023 LUNG CANCER SCREENING due on 09/18/2023 COLORECTAL CANCER SCREENING due on 09/18/2023 SHINGRIX VACCINE(1 of 2) due on 09/18/2023 HBA1C due on 06/21/2023 URINE ALBUMIN:CREATININE RATIO due on 09/18/2023 DIABETIC FOOT EXAM due on 09/18/2023 LDL CHOLESTEROL due on 12/22/2023 ANNUAL PCP TEAM CHRONIC DISEASE VISIT due on 02/10/2024 PROSTATE CANCER SCREENING DISCUSSION due on 09/18/2027 INFLUENZA Completed COVID-19 VACCINE Completed ASSESSMENT/PLAN: 1. Essential hypertension - ICD9: 401.9, ICD10: I10 (primary diagnosis) - suboptimal control - Begin metoprolol (Lopressor/Toprol) - Discontinue HCTZ - Encouraged dietary sodium restriction/DASH diet - Recommended regular aerobic exercise. - Recommend home blood pressure monitoring, to bring results in on next visit - Recheck in 6 weeks, sooner should new symptoms or problems arise. - Goal of BP <130/80 - Recommend home or pharmacy blood pressure monitoring- patient will monitor BP at home for the next two weeks and update me with readings - Recommended no refined sugar, low refined starch, healthy oil intake (olive oil), healthy protein (fish) along the lines of the Mediterranean diet. - METOPROLOL SUCCINATE ER 25 MG TABLET,EXTENDED RELEASE 24 HR 2. KACY (acute kidney injury) (HCC) - ICD9: 584.9, ICD10: N17.9 - discussed with patient he needs to complete his US of kidney/bladder, give urine specimen and get blood work checked- verbalizes understanding Aleah Byrd APRN.ELAINE Prescription instructions reviewed with patient as applicable. Patient advised if symptoms do not improve or if symptoms worsen sooner, to contact their primary care physician. Potential red flag symptoms discussed with the patient. Reviewed appropriate action plan to take if red flag symptoms occur. Patient agreeable to treatment plan. I spent a total of 25 minutes on the date of the service which included preparing to see the patient, [id number] patient care, completing clinical documentation, obtaining and/or reviewing separately obtained history, performing a medically appropriate examination, counseling and educating the patient/family/caregiver, and ordering medications, tests, or procedures. documented in this encounter [facility] 02-03-2023 Miscellaneous Notes Pt notified. Phyllis John RN Ok for blood work the day of his appointment. Referral and demo, ov faxed to Dr. Chao Phelan's office. Ok to do blood work day of appt? documented in this encounter [facility] 01-06-2023 Miscellaneous Notes Completed. Tamra Martinez LPN Please fax referral and copy of insurance card for endocrinology to Brianne Jessica's office at [phone]. Aleah Byrd APRN.HIGHW[employer] INSPECTOR Faxed demographics, last OV note, insurance card and referral to [phone] as requested. Tamra Martinez LPN documented in this encounter [facility] 01-06-2023 History of Presen t illness Narrative 01/06/2023 Patient presents with: Blood Pressure: 2 week follow up SUBJECTIVE: This is a 62 year old that is here today for Above Complaints. BP elevated at last office visit. Norvasc increased. Taking and tolerating without side effects. Home readings 130's-150's/60-70's. Reports has cut back on caffeine and salt. Denies visual changes, dizziness, lightheadedness, slurred speech, facial droop, extremity numbness, tingling or weakness. Needs referral faxed to lacing string cutter in [place] PAST MEDICAL HISTORY Diagnosis Date Diabetes mellitus type I (HCC) diagnosed age 28 Diabetic neuropathy (HCC) Diabetic retinopathy (HCC) Dr. Nolasco, Dr. Canas Essential hypertension History of tobacco use Hypothyroidism after radiation treatment for hyperthyroidism Mixed hyperlipidemia Multiple rib fractures 05/2020 Pneumothorax on left 05/2020 after fall from ladder Vitreous hemorrhage (HCC) ALLERGIES Cat Dander and Iodinated Contrast Media MEDICATIONS Current Outpatient Medications Medication Sig amLODIPine (NORVASC) 10 mg tablet Take 1 tablet by mouth once daily. Blood-Glucose Sensor (FREESTYLE AKIRA 3 SENSOR) marleni 1 Device every 2 weeks. atorvastatin (LIPITOR) 20 mg tablet Take 1 tablet by mouth daily at bedtime. For cholesterol. insulin aspart U-100 (NOVOLOG FLEXPEN U-100 INSULIN) 100 unit/mL (3 mL) Inject 5 Units subcutaneously three times daily before meals. Plus sliding scale insulin glargine (BASAGLAR KWIKPEN U-100 INSULIN) 100 unit/mL (3 mL) Inject 16 Units subcutaneously every morning. Patient reports taking 15-20 units every morning due to experiencing low BS flash glucose scanning reader (FREESTYLE AKIRA 2 READER) Use 4 times daily to monitor sugars. flash glucose sensor (FREESTYLE AKIRA 2 SENSOR) kit 1 Each every 2 weeks. levothyroxine (SYNTHROID) 125 mcg tablet Take 1 tablet by mouth daily before breakfast. losartan (COZAAR) 100 mg tablet Take 1 tablet by mouth once daily. No current facility-administered medications for this visit. Medications and allergies reviewed by this provider. SOCIAL HISTORY Social History Tobacco Use Smoking status: Former Packs/day: 1.00 Years: 40.00 Pack years: 40.00 Types: Cigarettes Quit date: 10/07/2021 Years since quittin.2 Smokeless tobacco: Never Substance Use Topics Alcohol use: Yes Alcohol/week: 12.0 standard drinks Types: 12 Cans of beer per week Drug use: Not Currently Types: Marijuana, Amphetamines Comment: High school REVIEW OF SYSTEMS All other reviewed and negative other than HPI. OBJECTIVE: BP 170/76 Pulse 84 Resp 16 Wt 76.4 kg (168 lb 6.4 oz) SpO2 97% BMI 22.56 kg/m . Vital signs reviewed by this provider. APPEARANCE Well appearing, alert, in no acute distress, well-hydrated, well nourished. PNEUMOCOCCAL(1 - PCV) Never done DILATED RETINAL EXAM Never done HEPATITIS C SCREENING Never done HIV SCREENING Never done BP CONTROLLED (<130/80) Never done DEPRESSION ASSESSMENT due on 11/30/2022 DTAP,TDAP,TD(1 - Tdap) due on 09/18/2023 LUNG CANCER SCREENING due on 09/18/2023 COLORECTAL CANCER SCREENING due on 09/18/2023 SHINGRIX VACCINE(1 of 2) due on 09/18/2023 HBA1C due on 06/21/2023 URINE ALBUMIN:CREATININE RATIO due on 09/18/2023 DIABETIC FOOT EXAM due on 09/18/2023 LDL CHOLESTEROL due on 12/22/2023 ANNUAL PCP TEAM CHRONIC DISEASE VISIT due on 12/22/2023 PROSTATE CANCER SCREENING DISCUSSION due on 09/18/2027 INFLUENZA Completed COVID-19 VACCINE Completed ASSESSMENT/PLAN: 1. Essential hypertension - ICD9: 401.9, ICD10: I10 (primary diagnosis) - poor control - Continue current medication(s) - Begin HCTZ - Encouraged dietary sodium restriction/DASH diet - Recommended regular aerobic exercise. - Recommend home blood pressure monitoring, to bring results in on next visit - Follow up in 1 month for BP recheck. - Goal of BP <140/90 - Recommend home or pharmacy blood pressure monitoring - Recommended no refined sugar, low refined starch, healthy oil intake (olive oil), healthy protein (fish) along the lines of the Mediterranean diet. 2. 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 Patient advised if symptoms do not improve or if symptoms worsen sooner, to contact their primary care physician. Potential red flag symptoms discussed with the patient. Reviewed appropriate action plan to take if red flag symptoms occur. Patient agreeable to treatment plan. I spent a total of 20 minutes on the date of the service which included preparing to see the patient, [id number] patient care, completing clinical documentation, obtaining and/or reviewing separately obtained history, performing a medically appropriate examination, counseling and educating the patient/family/caregiver, and ordering medications, tests, or procedures. documented in this encounter [facility] 12-25-2022 Miscellaneous Notes His rx has been sent. Please remind patient to schedule an establish care visit with endocrinology as discussed in office. documented in this encounter [facility] 12-24-2022 Miscellaneous Notes Patient phones requesting refills as follows: Requested Prescriptions Pending Prescriptions Disp Refills atorvastatin (LIPITOR) 20 mg tablet 90 tablet 0 Sig: Take 1 tablet by mouth daily at bedtime. For cholesterol. CHLOE-12/22/22 Labs-12/22/22 NOV-01/06/23 med filled 09/23/22 Please review and advise. Rubina Baez LPN documented in this encounter [facility] 12-23-2022 Miscellaneous Notes Phoned patient and reviewed results and recommendations with him. Patient voiced understanding. A1c is improving. Down to 76 with average sugar of 171. Recommend he follow up with endocrinology to assist with insulin adjustment in this type I diabetic as discussed in office. Repeat thyroid level looks good. Continue current dose of synthroid. Cholesterol looks much better. Continue statin. His kidney function is still down over the last 3 months. This is likely due to his uncontrolled diabetes. Recommend low sodium diet <2,000 mg per day, avoidance of NSAIDs, increased water intake. Will check UA and kidney ultrasound for further workup. Sodium level low, which may be lab error. Recommend recheck in 1 week to confirm. documented in this encounter [facility] 12-22-2022 History of Presen t illness Narrative Chief Complaint Patient presents with: Follow Up: 3 month HPI Anum Novoa is a 62 year old male who presents here today for Above Complaints.. Type I DM: Poorly controlled at last OV with A1c >11. Increased his basaglar and recommended he call in 2 weeks with updated readings, which he did not do. Referral order placed for follow up with endocrinology who he has not followed up with. States that he wanted to see how his sugar was today. Has FreeCaseStack Akira he has been using to monitor his sugars 4+ times per day. On meter today, 30 day average is down to 130. Has high readings 140-156 between 12 pm and 12 am over the last 30 days. Time out of target over last 30 days: >240 6%, 141-240 28%, <70 16%. Switched his Basaglar to morning instead of night. Taking anywhere from 15 to 20 units depending on how he feels. States that he adjusts his Novolog from 3 units to 8 units depending on how he feels. For sliding scale, he will take 1 extra unit for every 50 points above 100. Patient has not been counting his carbs and states that he will not do so. Has been eating healthier diet, which has lead to his low sugars. Eating less pasta and starches. Hypothyroidism: Last TSH was elevated, so synthroid was increased from 112 to 125 mcg daily. On this new regimen, has not noticed any change in symptoms. BP elevated today. Brought in home cuff which is high compared to ours. Has cut back on salt in his diet. Drinking less alcohol. Has some mild myalgias with lipitor at 20 mg daily. Would like to remain on this dosage. Past medical history, appointments, medications, allergies reviewed. Previous Medical History PAST MEDICAL HISTORY Diagnosis Date Diabetes mellitus type I (HCC) diagnosed age 28 Diabetic neuropathy (HCC) Diabetic retinopathy (HCC) Dr. Nolasco, Dr. Canas Essential hypertension History of tobacco use Hypothyroidism after radiation treatment for hyperthyroidism Multiple rib fractures 05/2020 Pneumothorax on left 05/2020 after fall from ladder Previous Surgical History PAST SURGICAL HISTORY Procedure Laterality Date COLONOSCOPY SCREENING 2011 normal per patient report PAST SURGICAL HISTORY OF Left 10/08/2021 4 plates to repair rib fractures PAST SURGICAL HISTORY OF Left 09/2021 Thoracentesis Family History FAMILY HISTORY Problem Relation Age of Onset Hypertension Mother Prostate Cancer Father Hyperlipidemia Brother Stroke Maternal Grandmother Hypertension Maternal Grandmother Hypertension Maternal Grandfather Heart disease Maternal Grandfather Prostate Cancer Paternal Grandfather Diabetes Son Stroke Maternal Aunt Patient Allergies ALLERGIES Allergen Reactions Cat Dander Other: See Comments Itchy eyes, sneezing Iodinated Contrast * Itching Current Medications Current Outpatient Medications on File Prior to Visit Medication Sig amLODIPine (NORVASC) 5 mg tablet Take 1 tablet by mouth once daily. flash glucose scanning reader (FREESTYLE AKIRA 2 READER) Use 4 times daily to monitor sugars. flash glucose sensor (FREESTYLE AKIRA 2 SENSOR) kit 1 Each every 2 weeks. insulin glargine (BASAGLAR KWIKPEN U-100 INSULIN) 100 unit/mL (3 mL) Inject 28 Units subcutaneously once daily. At bedtime (Patient taking differently: Inject 15 Units subcutaneously every morning. Patient reports taking 15-20 units every morning due to experiencing low BS) insulin aspart U-100 (NOVOLOG FLEXPEN U-100 INSULIN) 100 unit/mL (3 mL) Inject 8 Units subcutaneously three times daily before meals. Plus sliding scale atorvastatin (LIPITOR) 20 mg tablet Take 1 tablet by mouth daily at bedtime. For cholesterol. levothyroxine (SYNTHROID) 125 mcg tablet Take 1 tablet by mouth daily before breakfast. losartan (COZAAR) 100 mg tablet Take 1 tablet by mouth once daily. No current facility-administered medications on file prior to visit. Social History Social History Tobacco Use Smoking status: Former Packs/day: 1.00 Years: 40.00 Pack years: 40.00 Types: Cigarettes Quit date: 10/07/2021 Years since quittin.2 Smokeless tobacco: Never Substance Use Topics Alcohol use: Yes Alcohol/week: 12.0 standard drinks Types: 12 Cans of beer per week Drug use: Not Currently Types: Marijuana, Amphetamines Comment: High school Review of Symptoms REVIEW OF SYSTEMS GENERAL: No weight loss, malaise or fevers RESPIRATORY: Negative for cough, hemoptysis, wheezing, COPD, dyspnea or shortness of breath CARDIOVASCULAR: Negative for chest pain, leg swelling, hypertension, CHF or palpitations GI: No nausea, vomiting, or diarrhea SKIN: Negative for lesions, rash, and itching EXAM: BP 166/80 Pulse 86 Resp 16 Wt 75.5 kg (166 lb 6.4 oz) SpO2 98% BMI 22.29 kg/m Home Cuff: 192/92 General Appearance: Well appearing, alert, in no acute distress, well-hydrated, well nourished.. Skin: Skin color, texture, turgor normal, no suspicious rashes or lesions. Lungs: Lungs clear to auscultation. No wheezing, rhonchi, rales.. Heart: RRR without murmur, gallop, or rubs. No ectopy. Abdomen: Normal abdominal exam, Abdomen soft, non-tender. Bowel sounds normal. No masses, organomegaly. Extremities: No deformities, edema, skin discoloration, clubbing or cyanosis. Good capillary refill. . Health Maintenance List PNEUMOCOCCAL(1 - PCV) Never done DILATED RETINAL EXAM Never done HEPATITIS C SCREENING Never done HIV SCREENING Never done BP CONTROLLED (<130/80) Never done DEPRESSION ASSESSMENT due on 11/30/2022 HBA1C due on 12/19/2022 DTAP,TDAP,TD(1 - Tdap) due on 09/18/2023 LUNG CANCER SCREENING due on 09/18/2023 COLORECTAL CANCER SCREENING due on 09/18/2023 SHINGRIX VACCINE(1 of 2) due on 09/18/2023 URINE ALBUMIN:CREATININE RATIO due on 09/18/2023 LDL CHOLESTEROL due on 09/18/2023 DIABETIC FOOT EXAM due on 09/18/2023 ANNUAL PCP TEAM CHRONIC DISEASE VISIT due on 10/03/2023 PROSTATE CANCER SCREENING DISCUSSION due on 09/18/2027 INFLUENZA Completed COVID-19 VACCINE Completed Data reviewed Component Latest Ref Rng & Units 09/18/2022 Protein, Total 6.3 - 8.0 g/dL 6.8 Albumin 3.9 - 4.9 g/dL 4.5 Calcium 8.5 - 10.2 mg/dL 9.9 Bilirubin, Total 0.2 - 1.3 mg/dL 0.3 Alkaline Phosphatase 38 - 113 U/L 76 AST 14 - 40 U/L 18 ALT 10 - 54 U/L 17 Glucose 74 - 99 mg/dL 267 (H) BUN 9 - 24 mg/dL 26 (H) Creatinine 0.73 - 1.22 mg/dL 1.41 (H) Sodium 136 - 144 mmol/L 135 (L) Potassium 3.7 - 5.1 mmol/L 5.5 (H) Chloride 97 - 105 mmol/L 100 CO2 22 - 30 mmol/L 26 Anion Gap 9 - 18 mmol/L 9 eGFR >=60 mL/min/1.73m 57 (L) WBC 3.70 - 11.00 k/uL 7.57 RBC 4.20 - 6.00 m/uL 4.27 Hemoglobin 13.0 - 17.0 g/dL 12.7 (L) Hematocrit 39.0 - 51.0 % 40.0 MCV 80.0 - 100.0 fL 93.7 MCH 26.0 - 34.0 pg 29.7 MCHC 30.5 - 36.0 g/dL 31.8 RDW-CV 11.5 - 15.0 % 12.2 Platelet Count 150 - 400 k/uL 299 MPV 9.0 - 12.7 fL 11.4 Absolute nRBC <0.01 k/uL <0.01 Total Cholesterol, Nonfasting <200 mg/dL 217 (H) Triglycerides, Nonfasting <150 mg/dL 160 (H) HDL Cholesterol, Nonfasting >39 mg/dL 66 LDL Cholesterol, Nonfasting <100 mg/dL 119 (H) Non HDL Cholesterol, Nonfasting <130 mg/dL 151 (H) VLDL Cholesterol, Nonfasting <30 mg/dL 32 (H) Total Chol/HDL Ratio, Nonfasting <5.10 mg/dL 3.29 LDL/HDL Ratio, Nonfasting <2.54 mg/dL 1.80 Creatinine, Ur Random (UCRR) 20.0 - 300.0 mg/dL 54.4 Albumin, Urine Random mg/L 127.9 Albumin/Creat Ratio <30 mg/g 235 (H) Hemoglobin A1C 4.3 - 5.6 % 11.3 (H) Estimated Average Glucose mg/dL 278 TSH 0.270 - 4.200 mIU/L 4.810 (H) PSA Screening <2.60 ng/mL 1.22 ASSESSMENT/PLAN: 1. 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 Will reduce his insulin as ordered to prevent hypoglycemia. I discussed with him that he really needs to follow up with an lacing string cutter to help him dose his insulin based on carb intake. He needs to count his carbs and keep consistent 30-60 grams per meal to help prevent hyper/hypoglycemia. Continue sliding scale. Red flags for re-assessment reviewed with patient in detail. - TSH BLD - HGB A1C - LIPID PANEL, NONFASTING - COMP METABOLIC PANEL - INSULIN ASPART (U-100) 100 UNIT/ML (3 ML) SUBCUTANEOUS PEN - INSULIN GLARGINE (U-100) 100 UNIT/ML (3 ML) SUBCUTANEOUS PEN 2. Diabetic retinopathy of right eye associated with type 1 diabetes mellitus, macular edema presence unspecified, unspecified retinopathy severity (HCC) - ICD9: 250.51, 362.01, ICD10: E10.319 F/u with optho. 3. Essential hypertension - ICD9: 401.9, ICD10: I10 - poor control - Increase amlodipine (Norvasc) - Encouraged dietary sodium restriction/DASH diet - Recommended regular aerobic exercise. - Reviewed risks of HTN and principles of treatment - Goal of BP <140/90 Recheck in 2 weeks. - TSH BLD - HGB A1C - LIPID PANEL, NONFASTING - COMP METABOLIC PANEL - AMLODIPINE 10 MG TABLET 4. Hypothyroidism, unspecified type - ICD9: 244.9, ICD10: E03.9 - Instructed patient on importance of taking on an empty stomach either first thing in the morning or at bedtime. - check TSH today - continue current dose of Synthroid 0.125 mg - TSH BLD - HGB A1C - LIPID PANEL, NONFASTING - COMP METABOLIC PANEL 5. Mixed hyperlipidemia - ICD9: 272.2, ICD10: E78.2 - to be determined upon return of lab results - Continue current medication. - Encouraged following a low fat, low cholesterol diet. - Discussed the benefits of regular aerobic exercise and weight loss. 6. History of tobacco use - ICD9: V15.82, ICD10: Z87.891 Continue cessation. Jann Guadalupe MD documented in this encounter [facility] 12-02-2022 Miscellaneous Notes See pt message. Sondra Otero Ma documented in this encounter [facility] 10-03-2022 History of Presen t illness Narrative 10/03/2022 Patient presents with: Follow Up: 2 week blood pressure follow up SUBJECTIVE: This is a 62 year old that is here today for Above Complaints. BP elevated at last office appointment. No medication changes at that time. Taking BP at home daily with ranges of 140's-160's/70-80's. Is working on diet and decreasing salt intake and decreasing his caffeine intake. Denies visual changes, headaches, extremity numbness, tingling, weakness, slurred speech or facial drooping PAST MEDICAL HISTORY Diagnosis Date Diabetes mellitus type I (HCC) diagnosed age 28 Diabetic neuropathy ([facility]) Diabetic retinopathy ([facility]) Dr. Nolasco, Dr. Canas Essential hypertension History of tobacco use Hypothyroidism after radiation treatment for hyperthyroidism Multiple rib fractures 05/2020 Pneumothorax on left 05/2020 after fall from ladder ALLERGIES Cat Dander and Iodinated Contrast Media MEDICATIONS Current Outpatient Medications Medication Sig insulin glargine (BASAGLAR KWIKPEN U-100 INSULIN) 100 unit/mL (3 mL) Inject 28 Units subcutaneously once daily. At bedtime insulin aspart U-100 (NOVOLOG FLEXPEN U-100 INSULIN) 100 unit/mL (3 mL) Inject 8 Units subcutaneously three times daily before meals. Plus sliding scale atorvastatin (LIPITOR) 20 mg tablet Take 1 tablet by mouth daily at bedtime. For cholesterol. levothyroxine (SYNTHROID) 125 mcg tablet Take 1 tablet by mouth daily before breakfast. losartan (COZAAR) 100 mg tablet Take 1 tablet by mouth once daily. No current facility-administered medications for this visit. Medications and allergies reviewed by this provider. SOCIAL HISTORY Social History Tobacco Use Smoking status: Former Packs/day: 1.00 Years: 40.00 Pack years: 40.00 Types: Cigarettes Quit date: 10/07/2021 Years since quittin.9 Smokeless tobacco: Never Substance Use Topics Alcohol use: Yes Alcohol/week: 12.0 standard drinks Types: 12 Cans of beer per week Drug use: Not Currently Types: Marijuana, Amphetamines Comment: High school REVIEW OF SYSTEMS All other reviewed and negative other than HPI. OBJECTIVE: BP 167/77 Pulse 78 Resp 18 Wt 74.3 kg (163 lb 12.8 oz) SpO2 97% BMI 21.95 kg/m . Vital signs reviewed by this provider. APPEARANCE Well appearing, alert, in no acute distress, well-hydrated, well nourished. EYES conjunctiva and sclera normal. HEART RRR with normal S1 and S2, no murmurs, no gallops, no JVD appreciated LUNG clear to auscultation. No wheezes, rhonchi or rales SKIN Skin color, texture, turgor normal, no suspicious rashes or lesions to exposed skin PNEUMOCOCCAL(1 - PCV) Never done DILATED RETINAL EXAM Never done HEPATITIS C SCREENING Never done HIV SCREENING Never done BP CONTROLLED (<130/80) Never done DTAP,TDAP,TD(1 - Tdap) due on 09/18/2023 LUNG CANCER SCREENING due on 09/18/2023 COLORECTAL CANCER SCREENING due on 09/18/2023 SHINGRIX VACCINE(1 of 2) due on 09/18/2023 HBA1C due on 12/19/2022 URINE ALBUMIN:CREATININE RATIO due on 09/18/2023 LDL CHOLESTEROL due on 09/18/2023 DIABETIC FOOT EXAM due on 09/18/2023 ANNUAL PCP TEAM CHRONIC DISEASE VISIT due on 10/03/2023 PROSTATE CANCER SCREENING DISCUSSION due on 09/18/2027 INFLUENZA Completed DEPRESSION ASSESSMENT Completed COVID-19 VACCINE Completed ASSESSMENT/PLAN: 1. Essential hypertension - ICD9: 401.9, ICD10: I10 - suboptimal control - Continue current medication(s) - Encouraged dietary sodium restriction/DASH diet - Recommended regular aerobic exercise. - Recommend home blood pressure monitoring, to bring results in on next visit - Goal of BP <140/90 - Recommend home or pharmacy blood pressure monitoring - Recommended no refined sugar, low refined starch, healthy oil intake (olive oil), healthy protein (fish) along the lines of the Mediterranean diet. - medication options discussed, patient reports was on Norvasc as monotherapy years ago but changed to losartan for unknown reason. Tolerated Norvasc without side effects - AMLODIPINE 2.5 MG TABLET - will monitor daily at home and update me in two weeks with readings sooner if needed Aleah Byrd APRN.CNP Prescription instructions reviewed with patient as applicable. Patient advised if symptoms do not improve or if symptoms worsen sooner, to contact their primary care physician. Potential red flag symptoms discussed with the patient. Reviewed appropriate action plan to take if red flag symptoms occur. Patient agreeable to treatment plan. I spent a total of 25 minutes on the date of the service which included preparing to see the patient, [id number] patient care, completing clinical documentation, obtaining and/or reviewing separately obtained history, performing a medically appropriate examination, counseling and educating the patient/family/caregiver, and ordering medications, tests, or procedures. documented in this encounter [facility] 09-23-2022 Miscellaneous Notes Rx sent as requested. Patient returned call and given provider's message below with verbalized understanding. Patient will need new Rx for levothyroxine sent to pharmacy. Pended. Called and left a voicemail for the Patient to call back and ask for a nurse to receive the providers message. Virginia Gomez RN With him being a diabetic he is at higher risk for heart attack and stroke so needs to be on statin. Rx for Lipitor sent to pharmacy. If he is worried about low sugars I would have him start by increasing the Basaglar to 28 units and leave mealtime insulin the same. Send update in 1-2 weeks with readings obtained before meals and before bed. Call sooner with low reading <70. Phoned patient and went over results and recommendations with patient. Patient agreeable with synthroid changes. Patient reluctant about insulin changes because he stated he drops low sometimes. Patient stated he would do it though and strongly encouraged patient to schedule with endocrinology as recommended. Patient stated he would prefer to adjust his diet first before going on Lipitor because he had problems with previous cholesterol meds he had been on. He did state if PCP feels strongly that he needs to start the medication then he will try it. Please send scripts to [facility] in [place] for now as he has yet to select a pharmacy to use slitter service and setter. Prostate cancer screening negative/normal. TSH is high which indicates he is not getting enough synthroid. Recommend increasing dosage to 125 mcg daily with recheck in 8 weeks. Diabetes poorly controlled with A1C of 11.3. recommend he schedule f/u appointment with endocrinology as discussed in office and will increase his basaglar from 22 units to 28 units and increase Novolog to 8 units with meals and sliding scale. Kidney function is down in CKD stage III range and urine albumin is moderately elevated which is likely related to poorly controlled DM. Recommend low carb/sodium diet, avoidance of NSIADs, push PO fluids. Recheck at future OV. Cholesterol and LDL are moderately elevated. Recommend starting patient on moderate potency statin lipitor 20 mg daily with recheck in 3 months. Most common side effect: muscle aches. Which pharmacy would they like this sent to? documented in this encounter [facility] 09-18-2022 History of Presen t illness Narrative Chief Complaint Patient presents with: Physical: Est care- reports flu shot 09/05/22. Bivalent booster 09/05/22. !st covid shot 03/11/21 2 nd 04/08/21 And 1st booster 11/18/21. HPI Anum Novoa is a 62 year old male who presents here today for establish care visit. Previously seeing Dr. Martinez in [facility] with last OV about 1 year ago. Patient is type I diabetic diagnosed age 28. Managed by his previous PCP and is due for repeat labs. Taking 20 units of Basaglar instead of 22 units because he was getting hypoglycemia around 4 am. Hypoglycemia has improved. Taking 5 units of Novolog with meals along with sliding scale, but this varies with his level of physical activity. A1c elevated 1 year ago, thinks it was around 10-11. Has not had an A1c level below 8. Checks sugar about 3 times per day with readings in the low 100's. Did not bring readings today. Denies polyuria, polyphagia, polydipsia, vision changes. Does have neuropathy. Refusing referral to podiatry. HTN: Mr. Novoa indicates that he is feeling well and denies any symptoms referable to elevated blood pressure. Specifically denies headache, chest pain, palpitations, dyspnea, and peripheral edema. Patient denies any side effects of his medication(s) and is compliant with their regimen. He does not check BP's generally. He watches his diet for sodium, low fat and low cholesterol most of the time. Last 3 Encounter BP Readings: Date: BP: 09/18/2022 166/76 Taking synthroid on a daily basis as prescribed without side effects. Admits to cold intolerance. Due for TSH. PHQ-2 / Depression screen He in the past two weeks denies having felt down, depressed, hopeless or with little interest or pleasure in doing things. Patient states he had cologuard in the last 2 years which was negative. Has 40 pack year history of smoking and quit last year. Refusing yearly low dose CT chest. Up to date on COVID, flu, and tetanus booster. Past medical history, appointments, medications, allergies reviewed. Previous Medical History PAST MEDICAL HISTORY Diagnosis Date Diabetes mellitus type I (HCC) diagnosed age 28 Diabetic retinopathy (HCC) Dr. Nolasco, Dr. Canas Essential hypertension History of tobacco use Hypothyroidism after radiation treatment for hyperthyroidism Multiple rib fractures 05/2020 Pneumothorax on left 05/2020 after fall from ladder Previous Surgical History No past surgical history on file. Family History No family history on file. Patient Allergies ALLERGIES Allergen Reactions Cat Dander Other: See Comments Itchy eyes, sneezing Iodinated Contrast * Itching Current Medications Current Outpatient Medications on File Prior to Visit Medication Sig insulin aspart U-100 (NOVOLOG FLEXPEN U-100 INSULIN) 100 unit/mL (3 mL) Inject 5-10 Units subcutaneously three times daily before meals. Patient reports 5-10 units per sliding scale 3 x daily insulin glargine,hum.rec.anlog (BASAGLAR KWIKPEN U-100 INSULIN SUBCUTANEOUS) Inject 22 Units subcutaneously once daily. At bedtime losartan (COZAAR) 100 mg tablet Take 100 mg by mouth once daily. levothyroxine (SYNTHROID) 112 mcg tablet Take 112 mcg by mouth daily before breakfast. No current facility-administered medications on file prior to visit. Social History Social History Tobacco Use Smoking status: Former Types: Cigarettes Quit date: 10/07/2021 Years since quittin.9 Review of Symptoms REVIEW OF SYSTEMS GENERAL: No weight loss, malaise or fevers HEENT: Negative for frequent or significant headaches, No changes in hearing or vision, no nose bleeds or other nasal problems NECK: Negative for lumps, goiter, pain and significant neck swelling RESPIRATORY: Negative for cough, hemoptysis, wheezing, COPD, dyspnea or shortness of breath CARDIOVASCULAR: Negative for chest pain, leg swelling, hypertension, CHF or palpitations GI: No nausea, vomiting, or diarrhea : No history of dysuria, frequency or incontinence, No difficulty urinating, hematuria, Positive for nocturia >1 2 times per night. MUSCULOSKELETAL: Negative for joint pain or swelling, back pain or muscle pain SKIN: Negative for lesions, rash, and itching EXAM: BP 166/76 Pulse 77 Resp 16 Ht 184 cm (6' 0.44") Wt 73.2 kg (161 lb 6.4 oz) SpO2 98% BMI 21.62 kg/m General Appearance: Well appearing, alert, in no acute distress, well-hydrated, well nourished.. Skin: Skin color, texture, turgor normal, no suspicious rashes or lesions. Head: Normocephalic, no masses, lesions, tenderness or abnormalities. Eyes: Anicteric sclera. Pupils are equally round and reactive to light. Extraocular movements are intact. . Ears: External ears normal, canals clear. Oropharynx: Lips, mucosa, and tongue normal,upper and lower dentures, oropharynx normal. Neck: Supple, no adenopathy; thyroid symmetric, normal size, no bruits. Lungs: Lungs clear to auscultation. No wheezing, rhonchi, rales.. Heart: RRR without murmur, gallop, or rubs. No ectopy. Abdomen: Normal abdominal exam, Abdomen soft, non-tender. Bowel sounds normal. No masses, organomegaly. Extremities: No deformities, edema, skin discoloration, clubbing or cyanosis. Good capillary refill. Feet: Shoes and socks removed, No deformities, ulcers, calluses, normal distal pulses, sensitive to 10 gm monofilament, and not sensitive to monofilament right great toe Health Maintenance List HEPATITIS C SCREENING Never done HIV SCREENING Never done DTAP,TDAP,TD(1 - Tdap) Never done LIPID SCREEN Never done DIABETES SCREEN Never done COLORECTAL CANCER SCREENING Never done SHINGRIX VACCINE(1 of 2) Never done PROSTATE CANCER SCREENING DISCUSSION Never done DEPRESSION ASSESSMENT Never done INFLUENZA Completed COVID-19 VACCINE Completed ASSESSMENT/PLAN: 1. Annual physical exam - ICD9: V70.0, ICD10: Z00.00 (primary diagnosis) - Counseled on healthy diet and regular exercise - Colorectal cancer screening recommended - screening declined - Risks/benefits of prostate cancer screening discussed. screening PSA ordered - Counseled on limiting alcohol intake to 2 drinks per day - Follow up for annual exam in one year 2. 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, macular edema presence unspecified, unspecified retinopathy severity (HCC) - ICD9: 250.51, 362.01, ICD10: E10.319 poorly controlled - Continue current medications - Blood glucose monitoring on a four times a day schedule - Referral to Endocrinology for transfer of care for DM management - Encouraged regular aerobic exercise and weight loss - Follow up in 6 months, sooner should any other issues arise. - Discussed diabetic education issues of watermaster diabetic complications, hypoglycemic symptoms, hyperglycemic symptoms, diet, medications- side effects and need for compliance, importance of exercise, use and side effects of insulin, importance of appointments with [employer], and importance of annual examinations with Opthalmology with patient. - COMP METABOLIC PANEL - HGB A1C - ALBUMIN/CREAT RATIO RND UR - CBC - LIPID PANEL, NONFASTING - CONSULT TO ENDOCRINOLOGY 3. Diabetic polyneuropathy associated with type 1 diabetes mellitus (HCC) - ICD9: 250.61, 357.2, ICD10: E10.42 Mild. Discussed checking feet daily and working on DM control. Needs to f/u with endo. Will review labs and make adjustments. 4. Essential hypertension - ICD9: 401.9, ICD10: I10 - poor control - Continue current medication(s) - Encouraged dietary sodium restriction/DASH diet - Recommended regular aerobic exercise. - Follow up in 2 weeks for BP recheck. - Reviewed risks of HTN and principles of treatment - Goal of BP <140/90 5. Hypothyroidism, unspecified type - ICD9: 244.9, ICD10: E03.9 - Instructed patient on importance of taking on an empty stomach either first thing in the morning or at bedtime. - check TSH today - continue current dose of Synthroid 0.112 mg - TSH BLD - CONSULT TO ENDOCRINOLOGY 6. Screening for prostate cancer - ICD9: V76.44, ICD10: Z12.5 - PSA/PROSTSPECAG SCRN 7. History of tobacco use - ICD9: V15.82, ICD10: Z87.891 Jann Guadalupe MD documented in this encounter [facility] 10-11-2021 Note Admission Informatio n Admission date:10/08/2021 Operative date: 10/08/2021 Discharge date: 10/11/2021 Chief Complaint new pt. -Rib pain d/t fall in May History of Present Illness I had the pleasure of seeing Doug in the office today for chronic rib pain and chest wall pain and instability following a fall from height landing on his left side in May. The patient describes that several days following the fall, he started coughing up green sputum which improved over the following weeks taking Mucinex. He describes that his pain was severe on the left side. He also describes that if he tries to take a deep breath, that he feels a pulling sensation and some discomfort on the left anterior chest wall and internal. Lastly, he describes instability of ribs clicking near his back on the left side with movement, coughing, or breathing. There is significant past medical history includes that the patient is a type I diabetic for the last 30+ years. He reports that his current A1c is 8 which is the lowest its been a long time. He also smokes approximately 1/2 pack/day and has a history of hypertension. He was previously diagnosed with hyperactive thyroid and was treated with radiated iodine and now is hypothyroid taking medication for it. The patient denies a history of chest or lung surgeries. He does have a history of rhinoplasty x2, he denies having adverse bleeding or effects of anesthesia with those procedures. [1] History/Indication for Surgery The patient is a 61-year-old gentleman who approximately 4 months ago fell from a tree resulting in flail chest on the left. He has attempted conservative measures over the last several months and presented to the office reporting that there is still clicking and pain in his left chest wall and that it hurts to take a deep breath. After evaluating the patient and his studies, I offered lung decortication and ORIF of the nonhealed rib fractures. After being apprised of the risks of surgery, he elected to proceed. [2] Discharge Diagnosis and Plan 1. Surgical aftercare, respiratory system Z48.813 -Patient stable morning of postop day #3. -Medically, I feel the patient is likely stable for discharge home today. Unfortunately, he does not have any transportation until tomorrow and lives alone. -Would prefer waiting until tomorrow to discharge until he can have someone with him due to labile glucose measurements over the past 48 hours. -Okay for transfer over to surgical telemetry. -We will discontinue TRESA drain this morning. Minimal output. Increased risk of infection given diabetes. -Continue good pulmonary hygiene with airway clearance and incentive spirometry. -Continue increase in activity as tolerated with PT/OT/RN. -Out of bed to chair with meals. -Medications reviewed. -Pain control: Improving. Continue Tylenol and as needed narcotics. No NSAIDs. -GI/DVT prophylaxis: Continue Protonix. IPC and TOMMY hose for DVT prophylaxis. Ambulating well. -Discharge planning: Although stable medically for discharge will await for tomorrow due to transportation issues and living alone. Ordered: XR Chest 2 Views 2. 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 -Pain well controlled. Received cryoablation Intra-Op. [1] Ordered: XR Chest 2 Views 3. DM (diabetes mellitus) E11.9 -Overall, improved glucose control over the last 24 hours despite low reading this morning around 6 AM of 36 mg/dL. -Treated with oral glucose intake. -Continue current regimen. Patient assisting with management. -We discussed continuous glucose monitoring devices. Recommended akira or other available devices as an outpatient. Patient to consider. -Follow-up with PCP/lacing string cutter as an outpatient. 4. KACY (acute kidney injury) N17.9 -Resolved. Good urine output. -Hypertension: Losartan decreased to 50 mg yesterday. Go ahead with 100 today total this morning. -Avoid further nephrotoxic medications. -DC maintenance IV fluid. -Recommended patient establish care with [employer] combination teacher long-term as an outpatient given significant type 1 diabetes. If needed. 5. Trapped lung J98.19 -Status post decortication. Chest x-ray reviewed. Stable. -Small left basilar atelectasis versus effusion. Repeat chest x-ray tomorrow. Ordered: XR Chest 2 Views 6. Chronic chest wall pain R07.89 -Patient reporting significant improvement pain control postop. No clicking or popping (present preop). Ordered: XR Chest 2 Views Orders: insulin aspart, see protocol, Subcutaneous, Injection, AC & bedtime, First Dose: 10/10/21 17:45:00 EST metoclopramide, 5 mg, IV Push, Injection, q6h, PRN gastroparesis, First Dose: 10/10/21 11:18:00 EST Change Accommodation Communication Order Notify Treating Provider Additional Information -Patient seen/plan formulated in conjunction with Supervising Cardiothoracic Surgeon. [3] Hospital Course Hospital day #1: Patient was admitted to the hospital for a s (more content not included)... [facility] 10-11-2021 Note Patient Education In structions Name: DOUG NOVOA Current Date: 10/11/2021 14:31:46 The following sheet(s) are the Patient Education Leaflets for DOUG NOVOA YOLETTE Steps to Quit Smoking Smoking tobacco is the leading cause of preventable . It can affect almost every organ in the body. Smoking puts you and those around you at risk for developing many serious chronic diseases. Quitting smoking can be difficult, but it is one of the best things that you can do for your health. It is never too late to quit. How do I get ready to quit? When you decide to quit smoking, create a plan to help you succeed. Before you quit: ? Pick a date to quit. Set a date within the next 2 weeks to give you time to prepare. ? Write down the reasons why you are quitting. Keep this list in places where you will see it often. ? Tell your family, friends, and co-workers that you are quitting. Support from your loved ones can make quitting easier. ? Talk with your health care provider about your options for quitting smoking. ? Find out what treatment options are covered by your health insurance. ? Identify people, places, things, and activities that make you want to smoke (triggers). Avoid them. What first steps can I take to quit smoking? ? Throw away all cigarettes at home, at work, and in your car. ? Throw away smoking accessories, such as ashtrays and lighters. ? Clean your car. Make sure to empty the ashtray. ? Clean your home, including curtains and carpets. What strategies can I use to quit smoking? Talk with your health care provider about combining strategies, such as taking medicines while you are also receiving in-person counseling. Using these two strategies together makes you more likely to succeed in quitting than if you used either strategy on its own. ? If you are or , talk with your health care provider about finding counseling or other support strategies to quit smoking. Do not take medicine to help you quit smoking unless your health care provider tells you to do so. To quit smoking: Quit right away ? Quit smoking completely, instead of gradually reducing how much you smoke over a period of time. Research shows that stopping smoking right away is more successful than gradually quitting. ? Attend in-person counseling to help you build problem-solving skills. You are more likely to succeed in quitting if you attend counseling sessions regularly. Even short sessions of 10 minutes can be effective. Take medicine You may take medicines to help you quit smoking. Some medicines require a prescription and some you can purchase [id number]. Medicines may have nicotine in them to replace the nicotine in cigarettes. Medicines may: ? Help to stop cravings. ? Help to relieve withdrawal symptoms. Your health care provider may recommend: ? Nicotine patches, gum, or lozenges. ? Nicotine inhalers or sprays. ? Non-nicotine medicine that is taken by mouth. Find resources Find resources and support systems that can help you to quit smoking and remain smoke-free after you quit. These resources are most helpful when you use them often. They include: ? Online chats with a counselor. ? Telephone quitlines. ? Printed self-help materials. ? Support groups or group counseling. ? Text messaging programs. ? Mobile phone apps or applications. Use apps that can help you stick to your quit plan by providing reminders, tips, and encouragement. There are many free apps for mobile devices as well as websites. Examples include Quit Guide from the CDC and smokefree.gov What things can I do to make it easier to quit? ? Reach out to your family and friends for support and encouragement. Call telephone quitlines (-NOW), reach out to support groups, or work with a counselor for support. ? Ask people who smoke to avoid smoking around you. ? Avoid places that trigger you to smoke, such as bars, parties, or smoke-break areas at work. ? Spend time with people who do not smoke. ? Lessen the stress in your life. Stress can be a smoking trigger for some people. To lessen stress, try: ? Exercising regularly. ? Doing deep-breathing exercises. ? Doing yoga. ? Meditating. ? Performing a body scan. This involves closing your eyes, scanning your body from head to toe, and noticing which parts of your body are particularly tense. Try to relax the muscles in those areas. How will I feel when I quit smoking? Day 1 to 3 weeks Within the first 24 hours of quitting smoking, you may start to feel withdrawal symptoms. These symptoms are usually most noticeable 2?3 days after quitting, but they usually do not last for more than 2?3 weeks. You may experience these symptoms: ? Mood swings. ? Restlessness, anxiety, or irritability. ? Trouble concentrating. ? Dizziness. ? Strong cravings for sugary foods and nicoti (more content not included)... [facility] 10-10-2021 Note Procedure Name Left thoracostomy tube removal Procedure Diagnosis Surgical aftercare Description of Procedure Most recent chest x-ray with no evidence of pneumothorax. No air leak appreciated on exam. Patient was positioned appropriately in bed. Dressing was taken down with care to minimize skin tears. Skin was cleaned with Chlorhexidine and anchor stitches cut. Valsalva maneuver was used to minimize risk of PTX. Chest tubes were removed without complications and noted to be intact upon removal. Horizontal mattress sutures tied down with good approximation of chest tube incisions. Sterile dressing applied. Patient tolerated the procedure well with no significant blood loss. STAT portable CXR ordered and patient is to remain on bedrest x1 hr. -TRESA drain left intact. Good collapse. Stripped. Serosanguineous drainage. Possible removal tomorrow. Electronically Signed on 20/10/11 10:38 JOSE LUIS Turner Grant R DO Wise [place] [facility] 10-08-2021 Note Document Contains David de la rosa Chief Complaint new pt. -Rib pain d/t fall in May History of Present Illness I had the pleasure of seeing Doug in the office today for chronic rib pain and chest wall pain and instability following a fall from height landing on his left side in May. The patient describes that several days following the fall, he started coughing up green sputum which improved over the following weeks taking Mucinex. He describes that his pain was severe on the left side. He also describes that if he tries to take a deep breath, that he feels a pulling sensation and some discomfort on the left anterior chest wall and internal. Lastly, he describes instability of ribs clicking near his back on the left side with movement, coughing, or breathing. There is significant past medical history includes that the patient is a type I diabetic for the last 30+ years. He reports that his current A1c is 8 which is the lowest its been a long time. He also smokes approximately 1/2 pack/day and has a history of hypertension. He was previously diagnosed with hyperactive thyroid and was treated with radiated iodine and now is hypothyroid taking medication for it. The patient denies a history of chest or lung surgeries. He does have a history of rhinoplasty x2, he denies having adverse bleeding or effects of anesthesia with those procedures. 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 CT IMAGING: Multiple mildly displaced left-sided rib fractures with out significant healing. Minimally displaced fracture of left rib 3 laterally, 4 laterally, 5 laterally, 6 laterally, 7 with moderate displacement and fragment separation laterally, 8 laterally without significant healing, 9 laterally with mild fragment displacement, 10 laterally and 11 12 posteriorly. IMPRESSION: Subpleural consolidation and small loculated left pleural effusion, likely from previous trauma. There are multiple mild to moderately displaced left-sided rib fractures without significant interval healing. No pneumothorax or acute findings otherwise. Review of Systems Constitutional: No fevers, chills, sweats Eye: No recent visual problems ENMT: No ear pain, nasal congestion, sore throat Respiratory: No shortness of breath, cough, does report pain and clicking of the chest wall Cardiovascular: No Chest pain, palpitations, syncope Gastrointestinal: No nausea, vomiting, diarrhea Genitourinary: No hematuria Ervin/Lymph: Negative for bruising tendency, swollen lymph glands Endocrine: Negative for excessive thirst, excessive hunger Musculoskeletal: No back pain, neck pain, joint pain, muscle pain, decreased range of motion Integumentary: No rash, pruritus, abrasions Neurologic: Alert & oriented X 4 Psychiatric: No anxiety, depression Physical Exam Vitals & Measurements HR: 95 (Peripheral) RR: 14 BP: 128/70 SpO2: 99% WT: 64.1 kg (Measured) WT: 64.1 kg (Dosing) General: Alert and oriented, well nourished, no acute distress. Eye: EOMI, normal conjunctiva. HENT: Normocephalic, clear tympanic membranes, normal hearing, moist oral mucosa, no scleral icterus, no sinus tenderness. Neck: Supple, non-tender, no carotid bruits, no JVD, no lymphadenopathy. Lungs: Clear to auscultation and percussion, non-labored respiration. Heart: Normal rate, regular rhythm, no murmur, gallop or edema. Abdomen: Soft, non-tender, non-distended, normal bowel sounds, no masses. Musculoskeletal: Normal range of motion and strength, no tenderness or swelling. Skin: Skin is warm, dry and pink, no rashes or lesions. Neurologic: Awake, alert, and oriented X3, CN II-XII intact. Psychiatric: Cooperative, appropriate mood and affect. Assessment/Plan 1. Flail chest S22.5XXA 2. Trapped lung J98.19 3. Pleural effusion on left J90 I discussed with the patient my rationale and conclusion that ORIF of the malunion and nonunion rib fractures would be beneficial to him. Particularly since he is still experiencing pain and instability. We would also plan to perform decortication and evacuate the chronic effusion likely related to the trauma. The operative plan will be for VATS decortication, open ORIF of the posteriorly displaced ribs, and cryoanalgesia of the associated intercostal segments. I discussed with the patient inherent risks of the procedure including bronchopleural fistula, prolonged air leak, bleeding issues, persistent pain, need for additional procedures, and cosmetic disfigurement from incisions. After being apprised of the risk, the patient would like to proceed with stabilization of the ribs and decortication of the lung. Preoperatively, we will get 3D reconstruction of the rib fractures as well as pulmonary function testing. Thank you for allowing me to participate in Doug's care and please not hesitate to contact me with questions or concerns. Allergies contrast media (iodine-based) (Itch) Medications Basaglar KwikPen 100 units/mL subcutaneous solution, Subcutaneous, D (more content not included)... [facility] 09-27-2021 History of Presen t illness Narrative I received a referral from Dr. Juan Phelan's office to get pt scheduled with Thoracic Surgery for rib fractures. I called pt and he said they referred him to Dr. Luis Wise with [facility] and he is going to see him in a week or so. This referral is being closed. 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, macular edema presence unspecified, unspecified retinopathy severity (HCC) Diabetic polyneuropathy associated with type 1 diabetes mellitus (HCC) Essential hypertension Unspecified essential hypertension Hypothyroidism, unspecified type Screening for prostate cancer Special screening for malignant neoplasm of prostate History of tobacco use Personal history of tobacco use, presenting hazards to health [facility] Hypothyroidism, unspecified type- Primary 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, macular edema presence unspecified, unspecified retinopathy severity (HCC) [facility] Diagnosis Essential hypertension- Primary Unspecified essential hypertension [facility] Essential hypertension Unspecified essential hypertension [facility] Diagnosis 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, macular edema presence unspecified, unspecified retinopathy severity (HCC)- Primary Diabetic retinopathy of right eye associated with type 1 diabetes mellitus, macular edema presence unspecified, unspecified retinopathy severity (HCC) Essential hypertension Unspecified essential hypertension Hypothyroidism, unspecified type Mixed hyperlipidemia History of tobacco use Personal history of tobacco use, presenting hazards to health [facility] Diagnosis KACY (acute kidney injury) (HCC)- Primary Acute kidney failure, unspecified Hyponatremia Hyposmolality and/or hyponatremia [facility] Diagnosis Essential hypertension- Primary Unspecified essential hypertension 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, macular edema presence unspecified, unspecified retinopathy severity (HCC) [facility] Diagnosis Tobacco abuse Tobacco use disorder documented in this encounter [facility] note* Diagnosis Essential hypertension- Primary Unspecified essential hypertension KACY (acute kidney injury) (HCC) Acute kidney failure, unspecified documented in this encounter [facility] note* Diagnosis Essential hypertension- Primary Unspecified essential hypertension documented in this encounter [facility] note* Diagnosis Hypothyroidism, unspecified type Essential hypertension Unspecified essential hypertension documented in this encounter [facility] note* Diagnosis Hyponatremia- Primary Hyposmolality and/or hyponatremia [facility]* Diagnosis Hyponatremia- Primary Hyposmolality and/or hyponatremia documented in this encounter [facility] note* Diagnosis KACY (acute kidney injury) (HCC) Acute kidney failure, unspecified documented in this encounter [facility] noteNo assessment information availableLoma [facility] Work Phone: [facility]* Diagnosis Acute bronchitis, unspecified organism- Primary documented in this encounter [facility] Work Phone: Reason for referral (narrative)* Diagnostic Procedure Only (Routine) - Pending Review Specialty Diagnoses / Procedures Referred By Contac t Referred To Contact US IMAGING Diagnoses KACY (acute kidney injury) (HCC) Procedures US KIDNEY/BLADDER US RETROPERITONEAL REAL TIME W/IMAGE COMPLETE Jann Guadalupe MD [address] [place] [address] Us Imaging Referral ID Status Reason Start Date Expiration Date Visits Requested Visits Authorized [id number] Pending Review Auto-Generat ed Referral 12/23/2022 01/22/2024 1 1 [facility] for referral (narrative)* Diagnostic Procedure Only (Routine) - Closed Specialty Diagnoses / Procedures Referred By Contac t Referred To Contact US IMAGING Diagnoses KACY (acute kidney injury) (HCC) Procedures US KIDNEY/BLADDER US RETROPERITONEAL REAL TIME W/IMAGE COMPLETE Jann Guadalupe MD [address] [facility] [place] [address] [facility] [id number] Referral ID Status Reason Start Date Expiration Date V isits Requested Visits Authorized [id number] Closed Auto-Generate d Referral 12/23/2022 01/22/2024 1 1 [facility]No reason for referral information availableBluffton [facility] Work Phone: History of Present Illness * Landry Dariel Acostaine, HIGHWAY INSPECTOR - 12/12/2019 10:44 AM EST HISTORY Patient Name: Doug Novoa Date of Exam: 12/12/2019 Date of Surgery: 12/12/2019 Diagnosis: Vitreous hemorrhage, right eye Reason for visit/consultation: Medical risk stratification for same day surgery History of current illness: Doug Novoa is a 59 y.o. male who presents for preoperative medical risk stratification prior to eye surgery at the request of Dr. Palm. His medical conditions include: Hypertension: Controlled on amlodipine- took this morning, blood pressure 130/80s at home. Hypothyroidism: On synthroid Diabetes type 1: On humulin and lantus- took 12 units this morning. Also took glucose tab this morning at 0830 for a blood sugar of 72. Nicotine dependence: smokes 1 ppd x 40 years, last smoked this morning. Patient Active Problem List Diagnosis Diabetes mellitus type 2, insulin dependent (HCC) Essential hypertension Hypothyroidism (acquired) Cigarette nicotine dependence with nicotine-induced disorder Past Medical History: Diagnosis Date Diabetes mellitus (HCC) Hypertension Type of anesthesia: Regional Anesthesia History: Yes, without complications History reviewed. No pertinent surgical history. No Known Allergies Review of Systems Constitutional: Negative for chills, diaphoresis, fatigue and fever. HENT: Negative for dental problem, hearing loss, sore throat and trouble swallowing. Eyes: Positive for visual disturbance. Respiratory: Negative for apnea, cough, choking, chest tightness, shortness of breath, wheezing andstridor. Cardiovascular: Negative for chest pain, palpitations and leg swelling. Gastrointestinal: Negative for abdominal distention, abdominal pain, constipation, diarrhea, nauseaand vomiting. Musculoskeletal: Negative for gait problem and myalgias. Skin: Negative for wound. Neurological: Negative for tremors, seizures, syncope, light-headedness and headaches. Hematological: Does not bruise/bleed easily. Psychiatric/Behavioral: Negative for confusion. Social History Social History Tobacco Use Smoking status: Current Every Day Smoker Smokeless tobacco: Never Used Substance Use Topics Alcohol use: Not on file Social History Substance and Sexual Activity Drug Use Not on file Marital Status: Unknown History reviewed. No pertinent family history. Current Outpatient Medications Medication Sig Dispense Refill amlodipine besylate (AMLODIPINE ORAL) Take by mouth . insulin glargine (LANTUS) 100 unit/mL injection Inject under the skin nightly . insulin NPH (HumuLIN,NovoLIN) 100 unit/mL injection Inject under the skin . levothyroxine sodium (LEVOTHYROXINE ORAL) Take by mouth . No current facility-administered medications for this visit. PHYSICAL Patient Name: Doug Novoa Age: 59 y.o. BP (!) 170/60 Pulse 88 Temp 97.6 F (36.4 C) (Oral) Resp 16 Ht 6' Wt 65.3 kg (144 lb) SpO2 96% BMI 19.53 kg/m Physical Exam Constitutional: He is oriented to person, place, and time. Vital signs are normal. He appears well-developed and well-nourished. He is active and cooperative. No distress. HENT: Head: Normocephalic and atraumatic. Right Ear: Decreased hearing is noted. Left Ear: Decreased hearing is noted. Neck: Normal range of motion. Neck supple. Normal carotid pulses present. Carotid bruit is not present. Cardiovascular: Normal rate, regular rhythm, S1 normal, S2 normal, normal heart sounds and intact distal pulses. Exam reveals no gallop, no distant heart sounds and no friction rub. No murmur heard. Pulses: Radial pulses are 2+ on the right side and 2+ on the left side. Pulmonary/Chest: Effort normal and breath sounds normal. No respiratory distress. He has no decreased breath sounds. He has no wheezes. He has no rhonchi. He has no rales. He exhibits no tenderness. Abdominal: Soft. Normal appearance and bowel sounds are normal. He exhibits no distension. There isno abdominal tenderness. There is no rebound and no guarding. Neurological: He is alert and oriented to person, place, and time. He is not disoriented. Skin: Skin is warm, dry and intact. No rash noted. He is not diaphoretic. No erythema. No pallor. Psychiatric: He has a normal mood and affect. His speech is normal and behavior is normal. Judgmentand thought content normal. Cognition and memory are normal. Nursing note and vitals reviewed. EKG: Normal sinus rhythm Results for orders placed or performed in visit on 12/12/19 POC Glucose Result Value Ref Range Glucose 133 mg/dL ECG 12 Lead Result Value Ref Range Atrial Rate Ventricular Rate P-R Interval QRS Duration Q-T Interval Q-T Interval (corrected) QTC Calculation (Bezet) P Vinton R Vinton T Vinton IMPRESSION/PLAN: 59 y.o. male being seen today for preoperative medical risk stratification for same-day eye surgery at the request of Dr. Palm. Risk factors for surgery include: Hypertension: Not controlled this morning, most likely due to anxious and cigarette smoking this morning- did takeon amlodipine- took this morning, blood pressure 130/80s at home. Continue to monitor. Hypothyroidism: On synthroid Diabetes type 1: On humulin and lantus- took 12 units this morning. Also took glucose tab this morning at 0830 for a blood sugar of 72. Nicotine dependence: smokes 1 ppd x 40 years, last smoked this morning. Falls:Patient is at higher risk for falls due to vision impairment- fall risk precautions were discussed with patient including turning on lights and securing carpet edges. Preoperative recommendations: I reviewed the patient's pertinent medical history and medications. No additional recommendations or changes are warranted prior to his scheduled surgery. Risk Assessment: The patient is currently in a medically optimal state and the risk of surgery is low at this time. Questions regarding his medical issues were answered and discussed. Postoperative recommendations: Patient was instructed to continue his current medical regimen following surgery, unless instructed otherwise by his surgeon. The patient will follow up with his PCP for any additional medical concerns. This patient has an acceptable cardiac risk for the intended procedure, it is my professional opinion that the patient does not have any medical condition at this present time that significantly increase the risk for an adverse outcome. Thank you for the opportunity to evaluate your patient. Please feel free to contact our office withany questions. A copy of this evaluation was provided to the referring physician. documented in this encounter Assessments Diagnosis Pre-op evaluation Vitreous hemorrhage, right eye (HCC) Vitreous hemorrhage Controlled type 1 diabetes mellitus with other ophthalmic complication (HCC) Hypothyroidism (acquired) Unspecified hypothyroidism Essential hypertension Unspecified essential hypertension Cigarette nicotine dependence with nicotine-induced disorder Advance Directives No Advanced Directives Records FoundDocuments on File Type Date Recorded Patient Autism Specialist Expl anation Advance Directives and Living Will Summary Purpose Family History No Family History Records Found Relationship Condition Age at Onset Recorded Date/T chioma mother Diabetes mellitus Unknown Hypertension Unknown father Malignant neoplasm Unknown Reason for Referral Specialty Diagnoses / Procedures Referred By Honey iwlder Referred To Contact Endocrinology Diagnoses Diabetic retinopathy of right eye associated with type 1 diabetes mellitus, macular edema presence unspecified, unspecified retinopathy severity (HCC) Hypothyroidism, unspecified type 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, macular edema presence unspecified, unspecified retinopathy severity (HCC) Procedures CONSULT TO ENDOCRINOLOGY OFFICE/OUTPATIENT [facility] 60-74 MINUTES Jann Guadalupe MD [address] [place] [address] Referral ID Status Reason Start Date Expiration Date Visits Requested Visits Authorized [id number] Pending Review PCP Requested Referral 2 09/18/2023 1 1 Specialty Diagnoses / Procedures Referred By Honey wilder Referred To Contact Endocrinology Diagnoses 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, macular edema presence unspecified, unspecified retinopathy severity (HCC) Procedures CONSULT TO ENDOCRINOLOGY OFFICE/OUTPATIENT [facility] 60-74 MINUTES Aleah Byrd APRN.CNP [address] [place] [address] Referral ID Status Reason Start Date Expiration Date Visits Requested Visits Authorized [id number] Pending Review PCP Requested Referral 01/06/2023 01/06/2024 1 1 Specialty Diagnoses / Procedures Referred By Honey wilder Referred To Contact Nephrology Diagnoses Hyponatremia Procedures CONSULT TO NEPHROLOGY OFFICE/OUTPATIENT [facility] 60-74 MINUTES Jann Guadalupe MD [address] [place] [address] Referral ID Status Reason Start Date Expiration Date Visits Requested Visits Authorized [id number] Pending Review PCP Requested Referral 04/01/2023 03/31/2024 1 1 Chief Complaint and Reason for Visit Chief Complaint Admit Date 6 M FU April 11, 2025 10:52 am Additional Source Comments Reason for Visit (unrecogniz ed section and content) Reason Comments Perioperative Medical Evaluation vitreou s hemorrhage OD. Status Reason Specialty Diagnoses / Procedures Referred By Contact Referred To Contact Closed Primary Care Diagnoses Pre-op evaluation Isaak Palm MD [address] [place] [address] [facility] [address] [place] [address] Reason Comments Physical Est care- reports fl u shot 09/05/22. Bivalent booster 09/05/22. !st covid shot 03/11/21 2 nd 04/08/21 And 1st booster 11/18/21. Reason Comments Results Reason Comments Follow Up 2 week blood pressur e follow up Reason Comments Follow Up 3 month Reason Comments Results Reason Onset Date Comments Refill Request 12/24/2022 Reason Comments Blood Pressure 2 week follow up Reason Comments Blood Pressure Follow up Reason Onset Date Comments Refill Request 03/23/2023 Reason Onset Date Comments Refill Request 04/01/2023 Reason Comments Radiology US Specialty Diagnoses / Procedures Referred By Contac t Referred To Contact US IMAGING Diagnoses KACY (acute kidney injury) (HCC) Procedures US KIDNEY/BLADDER US RETROPERITONEAL REAL TIME W/IMAGE COMPLETE Jann Guadalupe MD [address] [place] [address] [place] [id number] Referral ID Status Reason Start Date Expiration Date V isits Requested Visits Authorized [id number] Closed Auto-Generate d Referral 12/23/2022 01/22/2024 1 1 Reason Onset Date Comments Diabetes 04/26/2025 Reason Comments Flu Symptoms Chest congestion, co ugh, fevers, body aches X 4 days (unrecognized sect ion and content) No Status Records FoundNo Status Records FoundNo Status Records FoundNo Status Records FoundNo Status Records FoundNo Status Records Found INFORMATION SOURCE (unrecogn ized section and content) DATE CREATED AUTHOR 12/12/2019 [facility] DATE CREATED AUTHOR AUTHOR'S ORGANIZ ATION 09/12/2021 [facility] DATE CREATED AUTHOR AUTHOR'S ORGANIZ ATION 12/21/2021 [facility] DATE CREATED AUTHOR AUTHOR'S ORGANIZ ATION 04/11/[address] 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 Start Date End Date Jann Guadalupe MD [address] [place] [address] PCP - General Family Medicine 09/18/22 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 Relationship Specialty Start Date End Date Jann Guadalupe MD [address] [place] [address] PCP - General Family Medicine 09/18/22 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 Relationship Specialty Start Date End Date Jann Guadalupe MD [address] [place] [address] PCP - General Family Medicine 09/18/22 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 Relationship Specialty Start Date End Date Jann Guadalupe MD [address] [place] [address] PCP - General Family Medicine 09/18/22 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 Relationship Specialty Start Date End Date Jann Guadalupe MD [address] [place] [address] PCP - General Family Medicine 09/18/22 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 Relationship Specialty Start Date End Date Jann Guadalupe MD [address] [place] [address] PCP - General Family Medicine 09/18/22 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 Relationship Specialty Start Date End Date Jann Guadalupe MD [address] [place] [address] PCP - General Family Medicine 09/18/22 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 Relationship Specialty Start Date End Date Jann Guadalupe MD [address] [place] [address] PCP - General Family Medicine 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 Jose Guadalupe MD Primary Care Provider Acti ve Team Status: Inactive Member Role Status Dates Dr. Jose Guadalupe MD Primary Care Provider Acti ve Start: April 11, 2025 End: April 11, 2025 Dr. Jose Guadalupe MD Referring Provider Active Start: April 11, 2025 End: April 11, 2025 Dr. 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 [address] [place] [address] PCP - General 07/30/23 Source Comments (unrecognize d section and content) In the event this informatio n is protected by the Federal Confidentiality of Alcohol and Drug Abuse Patient Records regulations: The Federal rules restrict any use of the information to criminally investigate or prosecute any alcohol or drug abuse patient.[facility] the event this information is protected by the Federal Confidentiality of Alcohol and Drug Abuse Patient Records regulations: The Federal rules restrict any use of the information to criminally investigate or prosecute any alcohol or drug abuse patient.[facility] the event this information is protected by the Federal Confidentiality of Alcohol and Drug Abuse Patient Records regulations: The Federal rules restrict any use of the information to criminally investigate or prosecute any alcohol or drug abuse patient.[facility] the event this information is protected by the Federal Confidentiality of Alcohol and Drug Abuse Patient Records regulations: The Federal rules restrict any use of the information to criminally investigate or prosecute any alcohol or drug abuse patient.[facility] the event this information is protected by the Federal Confidentiality of Alcohol and Drug Abuse Patient Records regulations: The Federal rules restrict any use of the information to criminally investigate or prosecute any alcohol or drug abuse patient.[facility] the event this information is protected by the Federal Confidentiality of Alcohol and Drug Abuse Patient Records regulations: The Federal rules restrict any use of the information to criminally investigate or prosecute any alcohol or drug abuse patient.[facility] Hospital[facility] the event this information is protected by the Federal Confidentiality of Alcohol and Drug Abuse Patient Records regulations: The Federal rules restrict any use of the information to criminally investigate or prosecute any alcohol or drug abuse patient.[facility] the event this information is protected by the Federal Confidentiality of Alcohol and Drug Abuse Patient Records regulations: The Federal rules restrict any use of the information to criminally investigate or prosecute any alcohol or drug abuse patient.[facility] the event this information is protected by the Federal Confidentiality of Alcohol and Drug Abuse Patient Records regulations: The Federal rules restrict any use of the information to criminally investigate or prosecute any alcohol or drug abuse patient.[facility] the event this information is protected by the Federal Confidentiality of Alcohol and Drug Abuse Patient Records regulations: The Federal rules restrict any use of the information to criminally investigate or prosecute any alcohol or drug abuse patient.[facility] the event this information is protected by the Federal Confidentiality of Alcohol and Drug Abuse Patient Records regulations: The Federal rules restrict any use of the information to criminally investigate or prosecute any alcohol or drug abuse patient.[facility] Hospital[facility] the event this information is protected by the Federal Confidentiality of Alcohol and Drug Abuse Patient Records regulations: The Federal rules restrict any use of the information to criminally investigate or prosecute any alcohol or drug abuse patient.[facility] Hospital[facility] the event this information is protected by the Federal Confidentiality of Alcohol and Drug Abuse Patient Records regulations: The Federal rules restrict any use of the information to criminally investigate or prosecute any alcohol or drug abuse patient.[facility] Hospital[facility] the event this information is protected by the Federal Confidentiality of Alcohol and Drug Abuse Patient Records regulations: The Federal rules restrict any use of the information to criminally investigate or prosecute any alcohol or drug abuse patient.[facility] Hospital[facility] the event this information is protected by the Federal Confidentiality of Alcohol and Drug Abuse Patient Records regulations: The Federal rules restrict any use of the information to criminally investigate or prosecute any alcohol or drug abuse patient.[facility] Hospital[facility] the event this information is protected by the Federal Confidentiality of Alcohol and Drug Abuse Patient Records regulations: The Federal rules restrict any use of the information to criminally investigate or prosecute any alcohol or drug abuse patient.[facility] Hospital[facility] the event this information is protected by the Federal Confidentiality of Alcohol and Drug Abuse Patient Records regulations: The Federal rules restrict any use of the information to criminally investigate or prosecute any alcohol or drug abuse patient.[facility] Hospital[facility] the event this information is protected by the Federal Confidentiality of Alcohol and Drug Abuse Patient Records regulations: The Federal rules restrict any use of the information to criminally investigate or prosecute any alcohol or drug abuse patient.[facility] Hospital[facility] the event this information is protected by the Federal Confidentiality of Alcohol and Drug Abuse Patient Records regulations: The Federal rules restrict any use of the information to criminally investigate or prosecute any alcohol or drug abuse patient.[facility] Hospital[facility] the event this information is protected by the Federal Confidentiality of Alcohol and Drug Abuse Patient Records regulations: The Federal rules restrict any use of the information to criminally investigate or prosecute any alcohol or drug abuse patient.[facility] Hospital[facility] the event this information is protected by the Federal Confidentiality of Alcohol and Drug Abuse Patient Records regulations: The Federal rules restrict any use of the information to criminally investigate or prosecute any alcohol or drug abuse patient.[facility] Hospital[facility] the event this information is protected by the Federal Confidentiality of Alcohol and Drug Abuse Patient Records regulations: The Federal rules restrict any use of the information to criminally investigate or prosecute any alcohol or drug abuse patient.[facility] <item> Privacy Markings (unrecogniz ed section and content) Section Author: Yadira Brown PROHIBITION ON REDISCLOSURE OF CONFIDENTIAL INFORMATION This notice accompanies a disclosure of information concerning a client made to you with the consent of such client. Goals (unrecognized section and content) Goals may be documented in a n alternate section FOR RECORDS PERTAINING TO PATIENTS WHO ARE OR HAVE BEEN ENROLLED IN A CHEMICAL DEPENDENCY/SUBSTANCEABUSE PROGRAM, SOME INFORMATION MAY BE OMITTED. This clinical summary was aggregated from multiple sources. Caution should be exercised in using it in the provision of clinical care. This summary normalizes information from multiple sources, and as a consequence, information in this document may materially change the coding, format and clinical context of patient data. In addition, data may be omitted in some cases. CLINICAL DECISIONS SHOULD BE BASED ON THE PRIMARY CLINICAL RECORDS. [employer] provides no warranty or guarantee of the accuracy or completeness of information in this document.
== END | disposition home or self-care (01) ==
LOC: LAB 10:12
PROVIDERS: PCP Family Medicine; Referring Provider Internal Medicine Endocrinology, Diabetes & Metabolism; Visit Provider Internal Medicine Endocrinology, Diabetes & Metabolism
DX: E10.65 Type 1 diabetes mellitus with hyperglycemia (principal); E10.22 Type 1 diabetes mellitus with diabetic chronic kidney disease; N18.31 Chronic kidney disease, stage 3a; E03.9 Hypothyroidism, unspecified; I12.9 Hypertensive chronic kidney disease with stage 1 through stage 4 chronic kidney disease, or unspecified chronic kidney disease; E78.00 Pure hypercholesterolemia, unspecified
CPT/HCPCS: 36415; 80053; 80061; 82043; 82570; 84443